=== PATIENT | male | born 1995 | race Caucasian/White ===

== ENCOUNTER 2017-07-20 07:56 | Emergency (ER) | payer MEDICAID ==
[2017-07-20] MEDS ORDERED: Ondansetron 4 MG/2 ML SDV IV ONE (08:25)
[2017-07-20] MEDS ORDERED: Sodium Chloride 0.9% 1,000 ML IV ONE (08:25)
[2017-07-20] MEDS ORDERED: diphenhydrAMINE 50 MG/ML SDV IVPUSH ONE (08:25)
[2017-07-20 08:45] LABS: CHLORIDE,CL 100 mmol/L (101-111); SODIUM,NA 136 mmol/L (135-145)
--- NOTE | 2017-07-20 08:52 | EDM.PDOC ---
ED HPI GENERAL MEDICAL PROBLEM - General Chief Complaint: Gastrointestinal Problem Stated Complaint: THROUGHING UP ALOT Time Seen by Provider: 07/20/17 08:25 Source of Information: Reports: Patient History Limitations: Reports: No Limitations - History of Present Illness INITIAL COMMENTS - FREE TEXT/NARRATIVE: patient comes emergency Department today with complaints of nausea and vomiting as well as back pain. Patient is a type I diabetic on insulin. At approximately 0200 hrs. this morning he woke up and has continued to have nausea and recurrent episodes of vomiting. He has been unable to keep anything down. He does complain of pain in his mid back bilaterally in his flanks as well. He denies any recent injury or trauma to his back. He denies any hematuria dysuria or urinary frequency. He does complain of abdominal pain only when he is vomiting. He denies any diarrhea. Does complain of a subjective fever and chills. He has not taken any antipyretics prior to arrival. His blood sugars have been within the normal ranges he reports in the 150s to 200s. Bilateral Flank Pain Score (Numeric/FACES): 8 - Related Data Allergies Allergy/AdvReac Type Severity Reaction Status Date / Time No Known Allergies Allergy Verified 02/29/16 07:17 Home Meds: Home Meds Insulin Aspart [Novolog] 8 units SUBCUT ASDIRECTED 10/18/13 [History] Insulin Glarg,Human.Rec.Analog [Lantus Solostar] 33 unit SUBCUT DAILY 10/18/13 [ History] lamoTRIgine [Lamotrigine] 1 tab PO BEDTIME 07/20/17 [History] Past Medical History HEENT History: Reports: Impaired Vision, Other (See Below) Other HEENT History: wears glasses Cardiovascular History: Reports: None Respiratory History: Reports: None Gastrointestinal History: Reports: None Genitourinary History: Reports: Acute Renal Failure Musculoskeletal History: Reports: None Neurological History: Reports: Seizure Psychiatric History: Reports: None Endocrine/Metabolic History: Reports: Diabetes, Type I Other Endocrine/Metabolic History: on insulin at home Hematologic History: Reports: None Immunologic History: Reports: None Oncologic (Cancer) History: Reports: None Dermatologic History: Reports: None - Infectious Disease History Infectious Disease History: Reports: None - Past Surgical History Head Surgeries/Procedures: Reports: None Social & Family History - Family History Family Medical History: Noncontributory Endocrine/Metabolic: Reports: IDDM - Tobacco Use Smoking Status *Q: Never Smoker Second Hand Smoke Exposure: No - Caffeine Use Caffeine Use: Reports: Soda - Alcohol Use Days Per Week of Alcohol Use: 0 - Recreational Drug Use Recreational Drug Use: No Drug Use in Last 12 Months: No - Living Situation & Occupation Living situation: Reports: with Family Occupation: Student ED ROS GENERAL - Review of Systems Review Of Systems: ROS reveals no pertinent complaints other than HPI. ED EXAM, GI/ABD - Physical Exam Exam: See Below Text/Narrative:: appears pale an ill-appearing and hygienically quite poor taking care of. Exam Limited By: No Limitations General Appearance: Alert, WD/WN Ears: Normal External Exam, Normal Canal Nose: Normal Inspection, Normal Mucosa Throat/Mouth: Normal Inspection, Other (dry mucous membranes.). No: Normal Lips (lips are cracked) Head: Atraumatic, Normocephalic Neck: Normal Inspection, Supple, Non-Tender Respiratory/Chest: No Respiratory Distress, Lungs Clear, Normal Breath Sounds, No Accessory Muscle Use Cardiovascular: Normal Peripheral Pulses, Regular Rate, Rhythm, No Gallop, No JVD, No Murmur GI/Abdominal Exam: Normal Bowel Sounds, Soft, Non-Tender, No Distention (Male) Exam: Deferred Rectal (Males) Exam: Deferred Back Exam: Normal Inspection. No: CVA Tenderness (L), CVA Tenderness (R) Extremities: Normal Inspection, Normal Range of Motion, Non-Tender, Pallor Neurological: Alert, Oriented, CN II-XII Intact Psychiatric: Normal Affect, Normal Mood Skin Exam: No Rash, Cool, Diaphoretic, Pallor Lymphatic: No Adenopathy Course - Vital Signs Last Recorded V/S: Last Vital Signs Temp 38.1 C 07/20/17 12:57 Pulse 117 H 07/20/17 11:11 Resp 22 H 07/20/17 08:03 BP 106/50 L 07/20/17 11:11 Pulse Ox 98 07/20/17 11:11 Vital Signs 07/20/17 07/20/17 07/20/17 08:03 11:11 11:30 Temperature 38.4 C H Temperature [ 37.4 C 38.4 C H Tympanic] Pulse, 108 H 117 H Peripheral [ Pulse Oximetry] Respiratory 22 H Rate Blood Pressure 117/78 106/50 L [Left Upper Arm ] O2 Sat by Pulse 100 98 Oximetry 07/20/17 12:57 Temperature Temperature [ 38.1 C Tympanic] Pulse, Peripheral [ Pulse Oximetry] Respiratory Rate Blood Pressure [Left Upper Arm ] O2 Sat by Pulse Oximetry - Orders/Labs/Meds Orders: Active Orders 24 hr Category Date Time Status BLOOD GAS VENOUS [BG] Stat Lab 07/20/17 08:24 Ordered CULTURE BLOOD [BC] Stat Lab 07/20/17 08:42 Received CULTURE BLOOD [BC] Stat Lab 07/20/17 09:02 Received Blood Culture x2 Reflex Set [OM.PC] Stat Oth 07/20/17 08:40 Ordered Labs: Laboratory Tests 07/20/17 07/20/17 07/20/17 Range/Units 08:18 08:18 08:18 WBC 19.2 H (5.0-10.0) 10^3/uL RBC 5.78 (4.6-6.2) 10^6/uL Hgb 17.2 D (14.0-18.0) g/dL Hct 49.0 (40.0-54.0) % MCV 84.8 D (80-100) fL MCH 29.8 (27.0-34.0) pg MCHC 35.1 H (33.0-35.0) g/dL Plt Count 220 (150-450) 10^3/uL Neut % (Auto) 91.8 H (42.2-75.2) % Lymph % (Auto) 2.4 L (20.5-50.1) % Tompkins % (Auto) 5.5 (2-8) % Eos % (Auto) 0.1 L (1.0-3.0) % Baso % (Auto) 0.2 (0.0-1.0) % Sodium 136 (135-145) mmol/L Potassium 3.8 (3.6-5.0) mmol/L Chloride 100 L (101-111) mmol/L Carbon Dioxide 22.0 (21.0-31.0) mmol/L Anion Gap 17.8 BUN 19 H (7-18) mg/dL Creatinine 0.9 (0.6-1.3) mg/dL Est Cr Clr Drug Dosing 116.62 mL/min Estimated GFR (MDRD) > 60 BUN/Creatinine Ratio 21.11 Glucose 204 H (74-105) mg/dL Lactic Acid (0.5-2.2) mmol/L Calcium 9.0 (8.4-10.2) mg/dl Total Bilirubin 1.3 H (0.2-1.0) mg/dL AST 37 (10-42) IU/L ALT 31 (10-60) IU/L Alkaline Phosphatase 103 (42-121) IU/L C-Reactive Protein < 0.5 (0.0-1.3) mg/dL Total Protein 7.4 (6.7-8.2) g/dl Albumin 4.3 (3.2-5.5) g/dl Globulin 3.1 Albumin/Globulin Ratio 1.39 Lipase (22-51) U/L Urine Color (YELLOW) Urine Appearance (CLEAR) Urine pH (5.0-9.0) Ur Specific Russell (1.005-1.030) Urine Protein (NEGATIVE) Urine Glucose (UA) (NEGATIVE) Urine Ketones (NEGATIVE) Urine Occult Blood (NEGATIVE) Urine Nitrite (NEGATIVE) Urine Bilirubin (NEGATIVE) Urine Urobilinogen (0.2-1.0) mg/dL Ur Leukocyte Esterase (NEGATIVE) Urine RBC /HPF Urine WBC (0-5/HPF) /HPF Ur Epithelial Cells /HPF Amorphous Sediment (0/HPF) /HPF Urine Mucus /LPF Ketones 07/20/17 07/20/17 07/20/17 Range/Units 08:18 08:18 08:42 WBC (5.0-10.0) 10^3/uL RBC (4.6-6.2) 10^6/uL Hgb (14.0-18.0) g/dL Hct (40.0-54.0) % MCV (80-100) fL MCH (27.0-34.0) pg MCHC (33.0-35.0) g/dL Plt Count (150-450) 10^3/uL Neut % (Auto) (42.2-75.2) % Lymph % (Auto) (20.5-50.1) % Tompkins % (Auto) (2-8) % Eos % (Auto) (1.0-3.0) % Baso % (Auto) (0.0-1.0) % Sodium (135-145) mmol/L Potassium (3.6-5.0) mmol/L Chloride (101-111) mmol/L Carbon Dioxide (21.0-31.0) mmol/L Anion Gap BUN (7-18) mg/dL Creatinine (0.6-1.3) mg/dL Est Cr Clr Drug Dosing mL/min Estimated GFR (MDRD) BUN/Creatinine Ratio Glucose (74-105) mg/dL Lactic Acid 1.6 (0.5-2.2) mmol/L Calcium (8.4-10.2) mg/dl Total Bilirubin (0.2-1.0) mg/dL AST (10-42) IU/L ALT (10-60) IU/L Alkaline Phosphatase (42-121) IU/L C-Reactive Protein (0.0-1.3) mg/dL Total Protein (6.7-8.2) g/dl Albumin (3.2-5.5) g/dl Globulin Albumin/Globulin Ratio Lipase < 10 L (22-51) U/L Urine Color (YELLOW) Urine Appearance (CLEAR) Urine pH (5.0-9.0) Ur Specific Russell (1.005-1.030) Urine Protein (NEGATIVE) Urine Glucose (UA) (NEGATIVE) Urine Ketones (NEGATIVE) Urine Occult Blood (NEGATIVE) Urine Nitrite (NEGATIVE) Urine Bilirubin (NEGATIVE) Urine Urobilinogen (0.2-1.0) mg/dL Ur Leukocyte Esterase (NEGATIVE) Urine RBC /HPF Urine WBC (0-5/HPF) /HPF Ur Epithelial Cells /HPF Amorphous Sediment (0/HPF) /HPF Urine Mucus /LPF Ketones Positive 07/20/17 Range/Units 09:34 WBC (5.0-10.0) 10^3/uL RBC (4.6-6.2) 10^6/uL Hgb (14.0-18.0) g/dL Hct (40.0-54.0) % MCV (80-100) fL MCH (27.0-34.0) pg MCHC (33.0-35.0) g/dL Plt Count (150-450) 10^3/uL Neut % (Auto) (42.2-75.2) % Lymph % (Auto) (20.5-50.1) % Tompkins % (Auto) (2-8) % Eos % (Auto) (1.0-3.0) % Baso % (Auto) (0.0-1.0) % Sodium (135-145) mmol/L Potassium (3.6-5.0) mmol/L Chloride (101-111) mmol/L Carbon Dioxide (21.0-31.0) mmol/L Anion Gap BUN (7-18) mg/dL Creatinine (0.6-1.3) mg/dL Est Cr Clr Drug Dosing mL/min Estimated GFR (MDRD) BUN/Creatinine Ratio Glucose (74-105) mg/dL Lactic Acid (0.5-2.2) mmol/L Calcium (8.4-10.2) mg/dl Total Bilirubin (0.2-1.0) mg/dL AST (10-42) IU/L ALT (10-60) IU/L Alkaline Phosphatase (42-121) IU/L C-Reactive Protein (0.0-1.3) mg/dL Total Protein (6.7-8.2) g/dl Albumin (3.2-5.5) g/dl Globulin Albumin/Globulin Ratio Lipase (22-51) U/L Urine Color Dark yellow (YELLOW) Urine Appearance Slightly cloudy (CLEAR) Urine pH 5.5 (5.0-9.0) Ur Specific Russell 1.020 (1.005-1.030) Urine Protein 30 H (NEGATIVE) Urine Glucose (UA) 500 H (NEGATIVE) Urine Ketones 80 H (NEGATIVE) Urine Occult Blood Negative (NEGATIVE) Urine Nitrite Negative (NEGATIVE) Urine Bilirubin Small H (NEGATIVE) Urine Urobilinogen 0.2 (0.2-1.0) mg/dL Ur Leukocyte Esterase Negative (NEGATIVE) Urine RBC 0-5 /HPF Urine WBC 0-5 (0-5/HPF) /HPF Ur Epithelial Cells Rare /HPF Amorphous Sediment Rare (0/HPF) /HPF Urine Mucus Moderate H /LPF Ketones Meds: Medications Discontinued Medications Generic Name Dose Route Start Last Admin Trade Name Freq PRN Reason Stop Dose Admin Acetaminophen 1,000 mg 07/20/17 11:12 07/20/17 11:30 Tylenol Extra Strength PO 07/20/17 11:13 1,000 mg ONETIME ONE Administration Diphenhydramine HCl 25 mg 07/20/17 08:25 07/20/17 08:36 Benadryl IVPUSH 07/20/17 08:26 25 mg ONETIME ONE Administration Sodium Chloride 1,000 mls @ 999 mls/hr 07/20/17 08:25 07/20/17 08:31 Normal Saline IV 07/20/17 09:25 999 mls/hr .BOLUS ONE Administration Sodium Chloride 1,000 mls @ 500 mls/hr 07/20/17 09:45 07/20/17 09:33 Normal Saline IV 500 mls/hr ASDIRECTED BUZZ Administration Iopamidol 75 ml 07/20/17 10:46 07/20/17 11:35 Isovue-300 (61%) IVPUSH 07/20/17 10:47 75 ml ONETIME ONE Administration Ondansetron HCl 4 mg 07/20/17 08:25 07/20/17 08:33 Zofran IV 07/20/17 08:26 4 mg ONETIME ONE Administration - Radiology Interpretation Free Text/Narrative:: CT abdomen and pelvis per radiology. No acute inflammation or intestinal obstruction. Clumping of small bowel in the right lower abdomen nodularity of the mesentery and remaining small bowel findings along with the colonic fluid. Questionable inflammatory bowel disease. - Re-Assessments/Exams Free Text/Narrative Re-Assessment/Exam: 07/20/17 08:52 IV normal saline 1 L wide open. 25 mg diphenhydramine IV push. Zofran 4 mg IV push. 07/20/17 Following the above therapy the patient felt much better. His nausea is resolved. He has no abdominal pain. His skin is pink warm and dry. He is able to tolerate by mouth fluids. Will treat him for gastroenteritis at this time. Departure - Departure Time of Disposition: 13:32 Disposition: Home, Self-Care 01 Clinical Impression: Gastroenteritis Diabetes mellitus type 1 Qualifiers: Diabetes mellitus complication status: without complication Qualified Code(s): E10.9 - Type 1 diabetes mellitus without complications - Discharge Information Instructions: Viral Gastroenteritis, Adult, [id number], Nausea and Vomiting, Adult, [id number] Referrals: PCP,Unobtain [Primary Care Provider] - Forms: ED Department Discharge Additional Instructions: Tylenol and or Ibuprofen as needed for pain. Watch blood sugars closely over the next few days. Push oral fluids especially Gatorade and or Powerade. Zofran 1 tablet every 6 hrs as needed for nausea. RX given to the patient. Return to the ED if new or worsening symptoms. Follow up with primary care provider in the next 4-6 days if not improving sooner if worse. - My Orders Last 24 Hours: My Active Orders 07/20/17 08:24 BLOOD GAS VENOUS [BG] Stat 07/20/17 08:40 Blood Culture x2 Reflex Set [OM.PC] Stat 07/20/17 08:42 CULTURE BLOOD [BC] Stat 07/20/17 09:02 CULTURE BLOOD [BC] Stat - Assessment/Plan Last 24 Hours: My Active Orders 07/20/17 08:24 BLOOD GAS VENOUS [BG] Stat 07/20/17 08:40 Blood Culture x2 Reflex Set [OM.PC] Stat 07/20/17 08:42 CULTURE BLOOD [BC] Stat 07/20/17 09:02 CULTURE BLOOD [BC] Stat Assessment:: Gastroenteritis Plan: Tylenol and or Ibuprofen as needed for pain. Watch blood sugars closely over the next few days. Push oral fluids especially Gatorade and or Powerade. Zofran 1 tablet every 6 hrs as needed for nausea. RX given to the patient. Return to the ED if new or worsening symptoms. Follow up with primary care provider in the next 4-6 days if not improving sooner if worse.
[2017-07-20] MEDS ORDERED: Sodium Chloride 0.9% 1,000 ML IV SCH (09:45)
[2017-07-20] MEDS ORDERED: Iopamidol 612 MG/ML 75 ML Bottle IVPUSH ONE (10:46)
[2017-07-20 11:12] VITALS: BP 106/50
[2017-07-20] MEDS ORDERED: Acetaminophen 500 MG Tab PO ONE (11:12)
[2017-07-22 09:23] LABS: O2 DELIVERY DEVICE ROOM AIR; O2 SATURATION VENOUS 83.3 % (60-80); PCO2 VENOUS 31 mmHg (41-51); PH,VENOUS 7.47 (7.31-7.41); PO2 VENOUS 46 mmHg (35-42)
[2017-07-22 09:24] LABS: BASE EXCESS VENOUS 0.2 mmol/l ((-2)-(+3)); BICARBONATE,VENOUS 22 mmol/l (19-25)
== END 2017-07-20 13:44 | disposition home or self-care (01) ==
LOC: DL.ED 07:56
DX: K52.9 Noninfective gastroenteritis and colitis, unspecified (principal); E10.9 Type 1 diabetes mellitus without complications; Z79.4 Long term (current) use of insulin
CPT/HCPCS: 36415; 74177; 80053; 81001; 82009; 83605; 83690; 85025; 86140; 87040; 96361; 96374; 96375; 99284; A9270; J1200; J2405; J7030; Q9967; 82803

== ENCOUNTER 2017-11-30 16:53 | Observation (INO) | payer SELFPAY ==
[2017-11-30] MEDS ORDERED: Sodium Chloride 0.9% 10 ML Syringe FLUSH PRN ×2 (17:07→17:09)
[2017-11-30] MEDS ORDERED: Ondansetron 4 MG/2 ML SDV IV ONE (17:10)
[2017-11-30] MEDS ORDERED: Sodium Chloride 0.9% 1,000 ML IV ONE ×2 (17:10→18:26)
--- NOTE | 2017-11-30 17:12 | EDM.PDOC ---
ED HPI GENERAL MEDICAL PROBLEM - General Chief Complaint: Diabetic Complaint Stated Complaint: [id number] SEIZURE AND THROWING UP Time Seen by Provider: 11/30/17 17:07 Source of Information: Reports: Patient, Family (mother/brother), Old Records, RN, RN Notes Reviewed History Limitations: Reports: No Limitations - History of Present Illness INITIAL COMMENTS - FREE TEXT/NARRATIVE: Pt presented from home by his mother and brother with report that pt seem well and normal all day, then just prior to arrival while playing an online video game had a witnessed seizure, followed by vomiting. The seizure lasted less than 1 minute per mother, and consisted of generalized shaking, jerking, twitching, and rigid posturing, and was followed by a postictal phase of approx. 20 minutes. Pt states his mouth is dry, he thinks he bit his tongue, and he denies pain. Pt is unable to provide any further history. Onset: Today Duration: Constant Location: Reports: Generalized Severity: Severe Improves with: Reports: None Worsens with: Reports: None Associated Symptoms: Reports: No Other Symptoms - Related Data Allergies Allergy/AdvReac Type Severity Reaction Status Date / Time No Known Allergies Allergy Verified 02/29/16 07:17 Home Meds: Home Meds Insulin Aspart [Novolog] 8 units SUBCUT ASDIRECTED 10/18/13 [History] Insulin Glarg,Human.Rec.Analog [Lantus Solostar] 33 unit SUBCUT DAILY 10/18/13 [ History] lamoTRIgine [Lamotrigine] 1 tab PO BEDTIME 07/20/17 [History] Past Medical History HEENT History: Reports: Impaired Vision, Other (See Below) Other HEENT History: wears glasses Cardiovascular History: Reports: None Respiratory History: Reports: None Gastrointestinal History: Reports: None Genitourinary History: Reports: Acute Renal Failure Musculoskeletal History: Reports: None Neurological History: Reports: Seizure Psychiatric History: Reports: None Endocrine/Metabolic History: Reports: Diabetes, Type I, Other (See Below) (DKA) Other Endocrine/Metabolic History: on insulin at home Hematologic History: Reports: None Immunologic History: Reports: None Oncologic (Cancer) History: Reports: None Dermatologic History: Reports: None - Infectious Disease History Infectious Disease History: Reports: None - Past Surgical History Head Surgeries/Procedures: Reports: None Social & Family History - Family History Family Medical History: Noncontributory Endocrine/Metabolic: Reports: IDDM - Caffeine Use Caffeine Use: Reports: Soda - Living Situation & Occupation Living situation: Reports: Single, with Family Occupation: Student ED ROS GENERAL - Review of Systems Review Of Systems: ROS reveals no pertinent complaints other than HPI. (per mother) ED EXAM GENERAL NO PERIP PULSE - Physical Exam Exam: See Below Exam Limited By: No Limitations General Appearance: Alert, Lethargic, Thin, Other (acutely ill appearing) Eye Exam: Bilateral Eye: EOMI, Normal Inspection, PERRL Ears: Normal External Exam, Hearing Grossly Normal Nose: Normal Inspection, Normal Mucosa, No Blood Throat/Mouth: Normal Lips, Normal Oropharynx, Normal Voice, No Airway Compromise , Other (very dry oral membranes, small bite injury to tongue x2) Head: Atraumatic, Normocephalic Neck: Normal Inspection, Supple, Non-Tender, Full Range of Motion. No: Lymphadenopathy (L), Lymphadenopathy (R) Respiratory/Chest: No Respiratory Distress, Lungs Clear, Normal Breath Sounds, No Accessory Muscle Use, Chest Non-Tender, Other (hyperventilating) Cardiovascular: Regular Rate, Rhythm, No Edema, No Gallop, No JVD, No Murmur, Tachycardia GI/Abdominal: Normal Bowel Sounds, Soft, Non-Tender, No Organomegaly, No Distention, No Abnormal Bruit, No Mass (Male) Exam: Deferred Rectal (Males) Exam: Deferred Back Exam: Normal Inspection Extremities: Normal Inspection, Normal Range of Motion, Non-Tender, Normal Capillary Refill, No Pedal Edema Neurological: Alert, Other (drowsy, postictal on arrival, later with no acute neuro. deficits) Skin Exam: Dry, Intact, Cool, Pallor EKG INTERPRETATION EKG Date: 11/30/17 Time: 17:24 Rhythm: Other (Sinus Tach) Rate (Beats/Min): 101 [place]: Normal P-Wave: Present QRS: Normal ST-T: Normal QT: Normal Comparison: No Change Course - Vital Signs Last Recorded V/S: Last Vital Signs Temp 36.8 C 11/30/17 17:06 Pulse 130 H 11/30/17 17:06 Resp 50 H 11/30/17 17:06 BP 136/82 11/30/17 17:06 Pulse Ox 90 L 11/30/17 17:06 - Orders/Labs/Meds Orders: Active Orders 24 hr Category Date Time Status Blood Glucose Check, Bedside [RC] ONETIME Care 11/30/17 17:07 Active EKG 12 Lead [EKG Documentation Completion] [RC] STAT Care 11/30/17 17:08 Active Peripheral IV Care [RC] . DIRECTED Care 11/30/17 17:08 Active Peripheral IV Care [RC] . DIRECTED Care 11/30/17 17:09 Active Chest 1V Frontal [CR] Stat Exams 11/30/17 17:08 Taken CULTURE BLOOD [BC] Stat Lab 11/30/17 17:22 Received CULTURE BLOOD [BC] Stat Lab 11/30/17 17:26 Received DRUG SCREEN URINE BIORAD [URCHEM] Stat Lab 11/30/17 17:08 Ordered LAMOTRIGINE, SERUM [REF] Routine Lab 11/30/17 17:22 Received UA W/MICROSCOPIC [URIN] Stat Lab 11/30/17 17:24 Ordered Sodium Chloride 0.9% [Saline Flush] Med 11/30/17 17:07 Active 10 ml FLUSH ASDIRECTED PRN Sodium Chloride 0.9% [Saline Flush] Med 11/30/17 17:09 Active 10 ml FLUSH ASDIRECTED PRN Blood Culture x2 Reflex Set [OM.PC] Stat Oth 11/30/17 17:09 Ordered Peripheral IV Insertion Adult [OM.PC] Stat Oth 11/30/17 17:07 Ordered Peripheral IV Insertion Adult [OM.PC] Stat Oth 11/30/17 17:08 Ordered Seizure Precautions [OM.PC] Routine Oth 11/30/17 17:11 Ordered Medication Orders Sodium Chloride (Saline Flush) 10 ml FLUSH ASDIRECTED PRN PRN Reason: Keep Vein Open Last Admin: 11/30/17 17:19 Dose: 10 ml Sodium Chloride (Saline Flush) 10 ml FLUSH ASDIRECTED PRN PRN Reason: Keep Vein Open Last Admin: 11/30/17 17:26 Dose: 10 ml Labs: Laboratory Tests 11/30/17 11/30/17 11/30/17 Range/Units 17:04 17:15 17:22 WBC (5.0-10.0) 10^3/uL RBC (4.6-6.2) 10^6/uL Hgb (14.0-18.0) g/dL Hct (40.0-54.0) % MCV (80-100) fL MCH (27.0-34.0) pg MCHC (33.0-35.0) g/dL Plt Count (150-450) 10^3/uL Neut % (Auto) (42.2-75.2) % Lymph % (Auto) (20.5-50.1) % [place] % (Auto) (2-8) % Eos % (Auto) (1.0-3.0) % Baso % (Auto) (0.0-1.0) % ABG pH 7.29 L (7.35-7.45) ABG pCO2 23 L (35-45) mmHg ABG pO2 124 H (70-100) mmHg ABG HCO3 10.4 L (22-26) mmol/L ABG O2 Saturation 98 (95-100) % ABG Base Excess -14 L ((-2)-(+3)) mmol/L O2 Delivery Device Room air Sodium 137 (135-145) mmol/L Potassium 3.7 (3.6-5.0) mmol/L Chloride 102 (101-111) mmol/L Carbon Dioxide 11.0 L D (21.0-31.0) mmol/L Anion Gap 27.7 BUN 13 (7-18) mg/dL Creatinine 1.1 (0.6-1.3) mg/dL Est Cr Clr Drug Dosing 88.60 mL/min Estimated GFR (MDRD) > 60 BUN/Creatinine Ratio 11.81 Glucose 146 H (74-105) mg/dL POC Glucose 136 H (70-105) mg/dl Lactic Acid (0.5-2.2) mmol/L Calcium 9.9 (8.4-10.2) mg/dl Phosphorus 3.6 (2.5-4.6) mg/dL Magnesium 2.9 H (1.8-2.5) mg/dL Total Bilirubin 0.8 (0.2-1.0) mg/dL AST 51 H (10-42) IU/L ALT 35 (10-60) IU/L Alkaline Phosphatase 126 H (42-121) IU/L Troponin I < 0.02 (0.00-0.02) ng/ml Total Protein 8.2 (6.7-8.2) g/dl Albumin 4.8 (3.2-5.5) g/dl Globulin 3.4 Albumin/Globulin Ratio 1.41 Amylase 55 (28-100) U/L Lipase 16 L (22-51) U/L Ethyl Alcohol < 5 mg/dL Ketones Negative 11/30/17 11/30/17 Range/Units 17:22 17:22 WBC 10.9 H (5.0-10.0) 10^3/uL RBC 6.00 (4.6-6.2) 10^6/uL Hgb 17.8 (14.0-18.0) g/dL Hct 52.0 (40.0-54.0) % MCV 86.7 (80-100) fL MCH 29.7 (27.0-34.0) pg MCHC 34.2 (33.0-35.0) g/dL Plt Count 338 D (150-450) 10^3/uL Neut % (Auto) 56.4 (42.2-75.2) % Lymph % (Auto) 34.1 (20.5-50.1) % [place] % (Auto) 8.1 H (2-8) % Eos % (Auto) 1.0 (1.0-3.0) % Baso % (Auto) 0.4 (0.0-1.0) % ABG pH (7.35-7.45) ABG pCO2 (35-45) mmHg ABG pO2 (70-100) mmHg ABG HCO3 (22-26) mmol/L ABG O2 Saturation (95-100) % ABG Base Excess ((-2)-(+3)) mmol/L O2 Delivery Device Sodium (135-145) mmol/L Potassium (3.6-5.0) mmol/L Chloride (101-111) mmol/L Carbon Dioxide (21.0-31.0) mmol/L Anion Gap BUN (7-18) mg/dL Creatinine (0.6-1.3) mg/dL Est Cr Clr Drug Dosing mL/min Estimated GFR (MDRD) BUN/Creatinine Ratio Glucose (74-105) mg/dL POC Glucose (70-105) mg/dl Lactic Acid 11.3 H (0.5-2.2) mmol/L Calcium (8.4-10.2) mg/dl Phosphorus (2.5-4.6) mg/dL Magnesium (1.8-2.5) mg/dL Total Bilirubin (0.2-1.0) mg/dL AST (10-42) IU/L ALT (10-60) IU/L Alkaline Phosphatase (42-121) IU/L Troponin I (0.00-0.02) ng/ml Total Protein (6.7-8.2) g/dl Albumin (3.2-5.5) g/dl Globulin Albumin/Globulin Ratio Amylase (28-100) U/L Lipase (22-51) U/L Ethyl Alcohol mg/dL Ketones Meds: Medications Generic Name Dose Route Start Last Admin Trade Name Freq PRN Reason Stop Dose Admin Sodium Chloride 10 ml 11/30/17 17:07 11/30/17 17:19 Saline Flush FLUSH 10 ml ASDIRECTED PRN Administration Keep Vein Open Sodium Chloride 10 ml 11/30/17 17:09 11/30/17 17:26 Saline Flush FLUSH 10 ml ASDIRECTED PRN Administration Keep Vein Open Discontinued Medications Generic Name Dose Route Start Last Admin Trade Name Freq PRN Reason Stop Dose Admin Sodium Chloride 1,000 mls @ 999 mls/hr 11/30/17 17:10 11/30/17 17:23 Normal Saline IV 11/30/17 18:10 999 mls/hr .BOLUS ONE Administration Ondansetron HCl 4 mg 11/30/17 17:10 11/30/17 17:23 Zofran IV 11/30/17 17:11 4 mg ONETIME ONE Administration - Radiology Interpretation Free Text/Narrative:: [facility] Final Radiology Report Call: [phone] assistance Online chat: [email or web address] Name: TRACY RAHMAN Age: 22Years M Date: 11/30/2017 SSN: -- : [id number] Study: XR CHEST 1 VIEW Requesting Physician: LISBET DIGGS Images: 1 Addl Studies: Provided Clinical History: Contrast: Contrast Medium: Contrast Amount: Contrast Method: CONFIDENTIALITY STATEMENT This report is intended only for use by the referring physician, and only in accordance with law. If you received this in error, call [phone]. Page 1 of 1 EXAM: XR Chest, 1 View CLINICAL HISTORY: 22 years old, male; Signs and symptoms; Fever and other: Vomiting, dka seizure ? aspiration TECHNIQUE: Frontal view of the chest. COMPARISON: CR - Chest 2V 2016-02-29 07:40 FINDINGS: Lungs: Unremarkable. No consolidation. Pleural space: Unremarkable. No pneumothorax. Heart: Unremarkable. No cardiomegaly. Mediastinum: Unremarkable. Bones/joints: Unremarkable. IMPRESSION: No acute cardiopulmonary process. There is no significant interval change. Thank you for allowing us to participate in the care of your patient. Dictated and Authenticated by: Crow Peter MD 11/30/2017 5:45 PM Central Time Departure - Departure Time of Disposition: 18:21 (admit to Dr. Ricks) Disposition: Refer to Observation Condition: Serious Clinical Impression: Seizure, Acidosis due to type 1 diabetes mellitus, Lactic acidosis, Dehydration Vomiting Qualifiers: Vomiting type: unspecified Vomiting Intractability: non-intractable Nausea presence: unspecified Qualified Code(s): R11.10 - Vomiting, unspecified - Discharge Information Forms: ED Department Discharge - My Orders Last 24 Hours: My Active Orders 11/30/17 17:07 Blood Glucose Check, Bedside [RC] ONETIME Sodium Chloride 0.9% [Saline Flush] 10 ml FLUSH ASDIRECTED PRN Peripheral IV Insertion Adult [OM.PC] Stat 11/30/17 17:08 EKG 12 Lead [EKG Documentation Completion] [RC] STAT Peripheral IV Care [RC] . DIRECTED Chest 1V Frontal [CR] Stat DRUG SCREEN URINE BIORAD [URCHEM] Stat Peripheral IV Insertion Adult [OM.PC] Stat 11/30/17 17:09 Peripheral IV Care [RC] . DIRECTED Sodium Chloride 0.9% [Saline Flush] 10 ml FLUSH ASDIRECTED PRN Blood Culture x2 Reflex Set [OM.PC] Stat 11/30/17 17:11 Seizure Precautions [OM.PC] Routine 11/30/17 17:22 CULTURE BLOOD [BC] Stat LAMOTRIGINE, SERUM [REF] Routine 11/30/17 17:24 UA W/MICROSCOPIC [URIN] Stat 11/30/17 17:26 CULTURE BLOOD [BC] Stat - Assessment/Plan Last 24 Hours: My Active Orders 11/30/17 17:07 Blood Glucose Check, Bedside [RC] ONETIME Sodium Chloride 0.9% [Saline Flush] 10 ml FLUSH ASDIRECTED PRN Peripheral IV Insertion Adult [OM.PC] Stat 11/30/17 17:08 EKG 12 Lead [EKG Documentation Completion] [RC] STAT Peripheral IV Care [RC] . DIRECTED Chest 1V Frontal [CR] Stat DRUG SCREEN URINE BIORAD [URCHEM] Stat Peripheral IV Insertion Adult [OM.PC] Stat 11/30/17 17:09 Peripheral IV Care [RC] . DIRECTED Sodium Chloride 0.9% [Saline Flush] 10 ml FLUSH ASDIRECTED PRN Blood Culture x2 Reflex Set [OM.PC] Stat 11/30/17 17:11 Seizure Precautions [OM.] Routine 11/30/17 17:22 CULTURE BLOOD [BC] Stat LAMOTRIGINE, SERUM [REF] Routine 11/30/17 17:24 UA W/MICROSCOPIC [URIN] Stat 11/30/17 17:26 CULTURE BLOOD [BC] Stat
[2017-11-30 17:21] LABS: BASE EXCESS ARTERIAL -14 mmol/L ((-2)-(+3)); BICARBONATE,ARTERIAL 10.4 mmol/L (22-26); O2 DELIVERY DEVICE ROOM AIR; O2 SATURATION ARTERIAL 98 % (95-100); PCO2 ARTERIAL 23 mmHg (35-45); PO2 ARTERIAL 124 mmHg (70-100)
[2017-11-30 17:54] LABS: ANION GAP 27.7; CHLORIDE,CL 102 mmol/L (101-111); SODIUM,NA 137 mmol/L (135-145)
[2017-11-30] MEDS ORDERED: Acetaminophen 325 MG Tab PO PRN (18:55)
[2017-11-30] MEDS ORDERED: Ondansetron 4 MG/2 ML SDV IVPUSH PRN (18:55)
--- NOTE | 2017-11-30 19:24 | PCM.HP ---
H&P History of Present Illness - General Date of Service: 11/30/17 Admit Problem/Dx: Admission Diagnosis/Problem Admission Diagnosis/Problem Seizure disorder Source of Information: Patient, Family History Limitations: Reports: No Limitations - History of Present Illness Initial Comments - Free Text/Narative: 22-year-old male with a past medical history of type 1 diabetes, seizure disorder who presents after experiencing a generalized tonic-clonic seizure today. Patient reports that the seizure episode started suddenly while he was playing a new video game, was witnessed by his mother. The patient had generalized tonic -clonic contractions, tongue biting, loss of consciousness, unresponsiveness, post ictal phase. There was no urinary or fecal incontinence. Reported nausea and vomiting after regaining consciousness after the seizure. The patient has had seizure disorder for about 3 years, he was started on lamotrigine, and he follows up with neurology [Dr. Velásquez]. He reports that he has been recently noncompliant with taking his seizure medication. Last seizure was about 6 months to a year ago. Currently at bedside, the patient has no chest pain, no shortness of breath, no abdominal pain, no headaches, no fever, no urinary symptoms. In the ED, he was found to be dehydrated, with a lactic acidosis. An observation admission was recommended. Onset of Symptoms: Reports: Today - Related Data Allergies/Adverse Reactions: Allergies Allergy/AdvReac Type Severity Reaction Status Date / Time No Known Allergies Allergy Verified 02/29/16 07:17 Home Medications: Home Meds Insulin Aspart [Novolog] 8 units SUBCUT ASDIRECTED 10/18/13 [History] Insulin Glarg,Human.Rec.Analog [Lantus Solostar] 33 unit SUBCUT BEDTIME [History] lamoTRIgine [Lamotrigine] 1 tab PO BEDTIME 07/20/17 [History] Past Medical History HEENT History: Reports: Impaired Vision, Other (See Below) Other HEENT History: wears glasses Cardiovascular History: Reports: None Respiratory History: Reports: None Gastrointestinal History: Reports: None Genitourinary History: Reports: Acute Renal Failure Musculoskeletal History: Reports: None Neurological History: Reports: Seizure Psychiatric History: Reports: None Endocrine/Metabolic History: Reports: Diabetes, Type I, Other (See Below) (DKA) Other Endocrine/Metabolic History: on insulin at home Hematologic History: Reports: None Immunologic History: Reports: None Oncologic (Cancer) History: Reports: None Dermatologic History: Reports: None - Infectious Disease History Infectious Disease History: Reports: None - Past Surgical History Head Surgeries/Procedures: Reports: None Social & Family History - Family History Family Medical History: Noncontributory Endocrine/Metabolic: Reports: IDDM - Tobacco Use Smoking Status *Q: Never Smoker - Caffeine Use Caffeine Use: Reports: Soda - Recreational Drug Use Recreational Drug Use: No - Living Situation & Occupation Living situation: Reports: Single, with Family Occupation: Student H&P Review of Systems - Review of Systems: Review Of Systems: See Below General: Reports: No Symptoms HEENT: Reports: No Symptoms Pulmonary: Reports: No Symptoms Cardiovascular: Reports: No Symptoms Gastrointestinal: Reports: Nausea, Vomiting Genitourinary: Reports: No Symptoms Musculoskeletal: Reports: No Symptoms Skin: Reports: No Symptoms Psychiatric: Reports: No Symptoms Neurological: Reports: Seizure Exam - Exam Exam: See Below - Vital Signs Vital Signs: Last Vital Signs Temp 36.8 C 11/30/17 17:06 Pulse 130 H 11/30/17 17:06 Resp 50 H 11/30/17 17:06 BP 136/82 11/30/17 17:06 Pulse Ox 90 L 11/30/17 17:06 Weight: 58.967 kg - Exam General: Alert, Oriented HEENT: Conjunctiva Clear Neck: Supple Lungs: Clear to Auscultation, Normal Respiratory Effort Cardiovascular: Regular Rate, Regular Rhythm GI/Abdominal Exam: Normal Bowel Sounds Neurological: Cranial Nerves Intact, Strength Equal Bilateral, Normal Tone, Sensation Intact - Patient Data Lab Results Last 24 hrs: Laboratory Results - last 24 hr 11/30/17 11/30/17 11/30/17 Range/Units 17:04 17:15 17:22 WBC (5.0-10.0) 10^3/uL RBC (4.6-6.2) 10^6/uL Hgb (14.0-18.0) g/dL Hct (40.0-54.0) % MCV (80-100) fL MCH (27.0-34.0) pg MCHC (33.0-35.0) g/dL Plt Count (150-450) 10^3/uL Neut % (Auto) (42.2-75.2) % Lymph % (Auto) (20.5-50.1) % [place] % (Auto) (2-8) % Eos % (Auto) (1.0-3.0) % Baso % (Auto) (0.0-1.0) % ABG pH 7.29 L (7.35-7.45) ABG pCO2 23 L (35-45) mmHg ABG pO2 124 H (70-100) mmHg ABG HCO3 10.4 L (22-26) mmol/L ABG O2 Saturation 98 (95-100) % ABG Base Excess -14 L ((-2)-(+3)) mmol/L O2 Delivery Device Room air Sodium 137 (135-145) mmol/L Potassium 3.7 (3.6-5.0) mmol/L Chloride 102 (101-111) mmol/L Carbon Dioxide 11.0 L D (21.0-31.0) mmol/L Anion Gap 27.7 BUN 13 (7-18) mg/dL Creatinine 1.1 (0.6-1.3) mg/dL Est Cr Clr Drug Dosing 88.60 mL/min Estimated GFR (MDRD) > 60 BUN/Creatinine Ratio 11.81 Glucose 146 H (74-105) mg/dL POC Glucose 136 H (70-105) mg/dl Lactic Acid (0.5-2.2) mmol/L Calcium 9.9 (8.4-10.2) mg/dl Phosphorus 3.6 (2.5-4.6) mg/dL Magnesium 2.9 H (1.8-2.5) mg/dL Total Bilirubin 0.8 (0.2-1.0) mg/dL AST 51 H (10-42) IU/L ALT 35 (10-60) IU/L Alkaline Phosphatase 126 H (42-121) IU/L Troponin I < 0.02 (0.00-0.02) ng/ml Total Protein 8.2 (6.7-8.2) g/dl Albumin 4.8 (3.2-5.5) g/dl Globulin 3.4 Albumin/Globulin Ratio 1.41 Amylase 55 (28-100) U/L Lipase 16 L (22-51) U/L Ethyl Alcohol < 5 mg/dL Ketones Negative 11/30/17 11/30/17 Range/Units 17:22 17:22 WBC 10.9 H (5.0-10.0) 10^3/uL RBC 6.00 (4.6-6.2) 10^6/uL Hgb 17.8 (14.0-18.0) g/dL Hct 52.0 (40.0-54.0) % MCV 86.7 (80-100) fL MCH 29.7 (27.0-34.0) pg MCHC 34.2 (33.0-35.0) g/dL Plt Count 338 D (150-450) 10^3/uL Neut % (Auto) 56.4 (42.2-75.2) % Lymph % (Auto) 34.1 (20.5-50.1) % [place] % (Auto) 8.1 H (2-8) % Eos % (Auto) 1.0 (1.0-3.0) % Baso % (Auto) 0.4 (0.0-1.0) % ABG pH (7.35-7.45) ABG pCO2 (35-45) mmHg ABG pO2 (70-100) mmHg ABG HCO3 (22-26) mmol/L ABG O2 Saturation (95-100) % ABG Base Excess ((-2)-(+3)) mmol/L O2 Delivery Device Sodium (135-145) mmol/L Potassium (3.6-5.0) mmol/L Chloride (101-111) mmol/L Carbon Dioxide (21.0-31.0) mmol/L Anion Gap BUN (7-18) mg/dL Creatinine (0.6-1.3) mg/dL Est Cr Clr Drug Dosing mL/min Estimated GFR (MDRD) BUN/Creatinine Ratio Glucose (74-105) mg/dL POC Glucose (70-105) mg/dl Lactic Acid 11.3 H (0.5-2.2) mmol/L Calcium (8.4-10.2) mg/dl Phosphorus (2.5-4.6) mg/dL Magnesium (1.8-2.5) mg/dL Total Bilirubin (0.2-1.0) mg/dL AST (10-42) IU/L ALT (10-60) IU/L Alkaline Phosphatase (42-121) IU/L Troponin I (0.00-0.02) ng/ml Total Protein (6.7-8.2) g/dl Albumin (3.2-5.5) g/dl Globulin Albumin/Globulin Ratio Amylase (28-100) U/L Lipase (22-51) U/L Ethyl Alcohol mg/dL Ketones Result Diagrams: 11/30/17 17:22 11/30/17 17:22 Problem List Initiated/Reviewed/Updated: Yes Orders Last 24hrs: Active Orders 24 hr Category Date Time Status Patient Status [ADT] Routine ADT 11/30/17 18:55 Active Ambulate [RC] ASDIRECTED Care 11/30/17 18:55 Active Bedrest Bathroom Privileges [RC] ASDIRECTED Care 11/30/17 18:55 Active Blood Glucose Check, Bedside [RC] ONETIME Care 11/30/17 17:07 Active Blood Glucose Check, Bedside [RC] QIDACANDBED Care 11/30/17 18:55 Active Diabetes Education [RC] Click to Edit Care 11/30/17 18:57 Active EKG 12 Lead [EKG Documentation Completion] [RC] STAT Care 11/30/17 17:08 Active Height and Weight [RC] DAILY Care 11/30/17 18:55 Active Intake and Output [RC] QSHIFT Care 11/30/17 18:56 Active Oxygen Therapy [RC] PRN Care 11/30/17 18:55 Active Peripheral IV Care [RC] . DIRECTED Care 11/30/17 17:08 Active Peripheral IV Care [RC] . DIRECTED Care 11/30/17 17:09 Active Up ad [place] [RC] ASDIRECTED Care 11/30/17 18:55 Active VTE/DVT Education [RC] PER UNIT ROUTINE Care 11/30/17 18:55 Active Vital Signs [RC] Q4H Care 11/30/17 18:55 Active Consistent Carbohydrate Diet [DIET] Diet 11/30/17 Dinner Active Chest 1V Frontal [CR] Stat Exams 11/30/17 17:08 Taken BASIC METABOLIC PANEL,BMP [CHEM] AM Lab 12/01/17 05:11 Ordered CBC WITH AUTO DIFF [HEME] AM Lab 12/01/17 05:11 Ordered CULTURE BLOOD [BC] Stat Lab 11/30/17 17:22 Received CULTURE BLOOD [BC] Stat Lab 11/30/17 17:26 Received DRUG SCREEN URINE BIORAD [URCHEM] Stat Lab 11/30/17 17:08 Ordered LAMOTRIGINE, SERUM [REF] Routine Lab 11/30/17 17:22 Received MAGNESIUM [CHEM] AM Lab 12/01/17 05:11 Ordered UA W/MICROSCOPIC [URIN] Stat Lab 11/30/17 17:24 Ordered Acetaminophen [Tylenol] Med 11/30/17 18:55 Active 650 mg PO Q4H PRN Heparin Sodium Med 11/30/17 22:00 Active 5,000 units SUBCUT Q8HR Insulin Aspart [NovoLOG] Med 11/30/17 19:15 Active 0 unit SUBCUT ASDIRECTED PRN Insulin Aspart [NovoLOG] Med 12/01/17 08:00 Active See Protocol SUBCUT TIDAC Insulin Detemir [Levemir] Med 11/30/17 21:00 Ordered 33 unit SUBCUT BEDTIME Ondansetron [Zofran] Med 11/30/17 18:55 Active 4 mg IVPUSH Q4H PRN Sodium Chloride 0.9% [Normal Saline] 1,000 ml Med 11/30/17 18:26 Active IV .BOLUS Sodium Chloride 0.9% [Normal Saline] 1,000 ml Med 11/30/17 19:00 Active IV ASDIRECTED Sodium Chloride 0.9% [Saline Flush] Med 11/30/17 17:07 Active 10 ml FLUSH ASDIRECTED PRN Sodium Chloride 0.9% [Saline Flush] Med 11/30/17 17:09 Active 10 ml FLUSH ASDIRECTED PRN lamoTRIgine Med 11/30/17 21:00 Active 150 mg PO BEDTIME Blood Culture x2 Reflex Set [OM.PC] Stat Ot 11/30/17 17:09 Ordered Glucose Management Sub Q Reflex [OM.PC] Click To Edit Oth 11/30/17 18:55 Ordered Peripheral IV Insertion Adult [OM.PC] Stat Ot 11/30/17 17:07 Ordered Peripheral IV Insertion Adult [OM.PC] Stat Ot 11/30/17 17:08 Ordered Seizure Precautions [OM.PC] Routine Oth 11/30/17 17:11 Ordered Resuscitation Status Routine Resus Stat 11/30/17 18:55 Ordered Medication Orders Acetaminophen (Tylenol) 650 mg PO Q4H PRN PRN Reason: Pain (Mild 1-3)/fever Heparin Sodium (Porcine) (Heparin Sodium) 5,000 units SUBCUT Q8HR BUZZ Sodium Chloride (Normal Saline) 1,000 mls @ 999 mls/hr IV .BOLUS ONE Stop: 11/30/17 19:26 Last Admin: 11/30/17 18:28 Dose: 999 mls/hr Sodium Chloride (Normal Saline) 1,000 mls @ 150 mls/hr IV ASDIRECTED BUZZ Insulin Aspart (Novolog) 0 unit SUBCUT TIDAC BUZZ; Protocol Insulin Aspart (Novolog) 0 unit SUBCUT ASDIRECTED PRN PRN Reason: ANYTIME HE IS EATING Lamotrigine (Lamotrigine) 150 mg PO BEDTIME BUZZ Ondansetron HCl (Zofran) 4 mg IVPUSH Q4H PRN PRN Reason: Nausea/Vomiting Sodium Chloride (Saline Flush) 10 ml FLUSH ASDIRECTED PRN PRN Reason: Keep Vein Open Last Admin: 11/30/17 17:19 Dose: 10 ml Sodium Chloride (Saline Flush) 10 ml FLUSH ASDIRECTED PRN PRN Reason: Keep Vein Open Last Admin: 11/30/17 17:26 Dose: 10 ml Assessment/Plan Comment:: 22-year-old male with a past medical history of seizure disorder, type 1 diabetes who presents with a seizure. #Seizure disorder Likely triggered by video game, seizure threshold likely lowered due to noncompliance to lamotrigine Follow-up on lamotrigine levels Counseled patient extensively on the need to improve compliance with seizure medication Continue oral lamotrigine at current dose Follow-up with the neurology clinic next week #Lactic acidosis Likely secondary to tonic-clonic seizures IV fluids normal saline at 150 ml/hr Recheck BMP in the morning #Type 1 diabetes Accu-Cheks 3 times a day before meals and at bedtime Lispro 8 units 3 times a day before meals, Lantus 32 units at bedtime [home dose ] Carbohydrate controlled diet #DVT prophylaxis subcutaneous heparin
[2017-11-30] MEDS: Sodium Chloride 0.9% 1,000 ML IV SCH (19:31)
[2017-11-30] MEDS: Metoclopramide 10 MG/2 ML SDV IVPUSH PRN (19:38)
[2017-11-30] MEDS ORDERED: Insulin Detemir 100 Units/ML 3 ML Pen SUBCUT SCH (21:00)
[2017-11-30] MEDS ORDERED: lamoTRIgine 100 MG Tab PO SCH (21:00)
[2017-11-30] MEDS: Heparin Sodium 5,000 Units/ML Vial SUBCUT SCH (21:21)
[2017-12-01] MEDS: Metoclopramide 10 MG/2 ML SDV IVPUSH PRN ×2 (01:24→05:28)
[2017-12-01] MEDS: Sodium Chloride 0.9% 1,000 ML IV SCH ×2 (02:09→08:49)
[2017-12-01] MEDS ORDERED: Ondansetron 4 MG/2 ML SDV IV ONE (02:35)
[2017-12-01] MEDS: Heparin Sodium 5,000 Units/ML Vial SUBCUT SCH (05:08)
[2017-12-01 07:03] LABS: ANION GAP 11.8; CHLORIDE,CL 107 mmol/L (101-111); SODIUM,NA 138 mmol/L (135-145)
[2017-12-01] MEDS: Insulin Aspart 100 Units/ML 3 ML Pen SUBCUT PRN ×2 (08:31→12:21)
[2017-12-01] MEDS: Insulin Aspart 100 Units/ML 3 ML Pen SUBCUT SCH ×2 (08:31→12:20)
[2017-12-01] MEDS ORDERED: Insulin Detemir 100 Units/ML 3 ML Pen SUBCUT SCH (09:00)
[2017-12-01] MEDS ORDERED: lamoTRIgine 100 MG Tab PO SCH (09:00)
--- NOTE | 2017-12-01 11:00 | PCM.DCSUM1 ---
Discharge Summary - Hospital Course Free Text/Narrative:: 22-year-old male with a past medical history of type 1 diabetes, seizure disorder who presents after experiencing a generalized tonic-clonic seizure today. Likely triggered by a new video game patient was playing, patient also admitted to non-compliance with his seizure medication (lamictal 150 mg bid). He was admitted for observation overnight, there was no recurrence of seizure episodes. He will follow up with the Neurology clinic next week. Also to follow up on lamictal levels. Counselled on need to be compliant with medications. No driving until approved by the Neurologist. - Discharge Data Discharge Date: 12/01/17 Discharge Disposition: Home, Self-Care 01 Condition: Good - Discharge Diagnosis/Problem(s) (1) Seizure disorder SNOMED Code(s): 646143778 ICD Code: G40.909 - EPILEPSY, UNSP, NOT INTRACTABLE, WITHOUT STATUS EPILEPTICUS Status: Chronic Current Visit: No - Patient Instructions Diet: Usual Diet as Tolerated, Diabetic Diet Activity: As Tolerated Driving: Do Not Drive Showering/Bathing: May Shower - Discharge Plan Home Medications: Home Meds Insulin Aspart [Novolog] 3 units SUBCUT ASDIRECTED 10/18/13 [History] Insulin Glarg,Human.Rec.Analog [Lantus Solostar] 33 unit SUBCUT BEDTIME [History] lamoTRIgine [Lamotrigine] 150 tab PO BID 07/20/17 [History] Forms: ED Department Discharge Referrals: PCP,Unobtain [Primary Care Provider] - - General Info Admission Dx/Problem (Free Text: Admission Diagnosis/Problem Admission Diagnosis/Problem Seizure disorder Subjective Update: No seizures overnight. No new complaints this morning. - Review of Systems General: Reports: No Symptoms HEENT: Reports: No Symptoms Pulmonary: Reports: No Symptoms Cardiovascular: Reports: No Symptoms Gastrointestinal: Reports: No Symptoms Genitourinary: Reports: No Symptoms Musculoskeletal: Reports: No Symptoms - Patient Data Vitals - Most Recent: Last Vital Signs Temp 36.8 C 12/01/17 07:58 Pulse 86 12/01/17 07:58 Resp 20 12/01/17 07:58 BP 110/60 12/01/17 07:58 Pulse Ox 98 12/01/17 07:58 Weight - Most Recent: 58.967 kg I&O - Last 24 hours: Intake & Output 11/30/17 12/01/17 12/01/17 22:59 06:59 14:59 Intake Total 1999 1350 1360 Output Total 1950 Balance 1999 -600 1360 Lab Results - Last 24 hrs: Laboratory Results - last 24 hr 11/30/17 11/30/17 11/30/17 Range/Units 17:04 17:15 17:22 WBC (5.0-10.0) 10^3/uL RBC (4.6-6.2) 10^6/uL Hgb (14.0-18.0) g/dL Hct (40.0-54.0) % MCV (80-100) fL MCH (27.0-34.0) pg MCHC (33.0-35.0) g/dL Plt Count (150-450) 10^3/uL Neut % (Auto) (42.2-75.2) % Lymph % (Auto) (20.5-50.1) % Pershing % (Auto) (2-8) % Eos % (Auto) (1.0-3.0) % Baso % (Auto) (0.0-1.0) % ABG pH 7.29 L (7.35-7.45) ABG pCO2 23 L (35-45) mmHg ABG pO2 124 H (70-100) mmHg ABG HCO3 10.4 L (22-26) mmol/L ABG O2 Saturation 98 (95-100) % ABG Base Excess -14 L ((-2)-(+3)) mmol/L O2 Delivery Device Room air Sodium 137 (135-145) mmol/L Potassium 3.7 (3.6-5.0) mmol/L Chloride 102 (101-111) mmol/L Carbon Dioxide 11.0 L D (21.0-31.0) mmol/L Anion Gap 27.7 BUN 13 (7-18) mg/dL Creatinine 1.1 (0.6-1.3) mg/dL Est Cr Clr Drug Dosing 88.60 mL/min Estimated GFR (MDRD) > 60 BUN/Creatinine Ratio 11.81 Glucose 146 H (74-105) mg/dL POC Glucose 136 H (70-105) mg/dl Lactic Acid (0.5-2.2) mmol/L Calcium 9.9 (8.4-10.2) mg/dl Phosphorus 3.6 (2.5-4.6) mg/dL Magnesium 2.9 H (1.8-2.5) mg/dL Total Bilirubin 0.8 (0.2-1.0) mg/dL AST 51 H (10-42) IU/L ALT 35 (10-60) IU/L Alkaline Phosphatase 126 H (42-121) IU/L Troponin I < 0.02 (0.00-0.02) ng/ml Total Protein 8.2 (6.7-8.2) g/dl Albumin 4.8 (3.2-5.5) g/dl Globulin 3.4 Albumin/Globulin Ratio 1.41 Amylase 55 (28-100) U/L Lipase 16 L (22-51) U/L Urine Color (YELLOW) Urine Appearance (CLEAR) Urine pH (5.0-9.0) Ur Specific [place] (1.005-1.030) Urine Protein (NEGATIVE) Urine Glucose (UA) (NEGATIVE) Urine Ketones (NEGATIVE) Urine Occult Blood (NEGATIVE) Urine Nitrite (NEGATIVE) Urine Bilirubin (NEGATIVE) Urine Urobilinogen (0.2-1.0) mg/dL Ur Leukocyte Esterase (NEGATIVE) Urine RBC /HPF Urine WBC (0-5/HPF) /HPF Ur Epithelial Cells /HPF Urine Bacteria (0-FEW/HPF) /HPF Urine Opiates Screen (NEGATIVE) Ur Oxycodone Screen (NEGATIVE) Urine Methadone Screen (NEGATIVE) Ur Barbiturates Screen (NEGATIVE) U Tricyclic Antidepress (NEGATIVE) Ur Phencyclidine Scrn (NEGATIVE) Ur Amphetamine Screen (NEGATIVE) U Methamphetamines Scrn (NEGATIVE) Urine MDMA Screen (NEGATIVE) U Benzodiazepines Scrn (NEGATIVE) Urine Cocaine Screen (NEGATIVE) U Marijuana (THC) Screen (NEGATIVE) Ethyl Alcohol < 5 mg/dL Ketones Negative 11/30/17 11/30/17 11/30/17 Range/Units 17:22 17:22 21:00 WBC 10.9 H (5.0-10.0) 10^3/uL RBC 6.00 (4.6-6.2) 10^6/uL Hgb 17.8 (14.0-18.0) g/dL Hct 52.0 (40.0-54.0) % MCV 86.7 (80-100) fL MCH 29.7 (27.0-34.0) pg MCHC 34.2 (33.0-35.0) g/dL Plt Count 338 D (150-450) 10^3/uL Neut % (Auto) 56.4 (42.2-75.2) % Lymph % (Auto) 34.1 (20.5-50.1) % [place]hing % (Auto) 8.1 H (2-8) % Eos % (Auto) 1.0 (1.0-3.0) % Baso % (Auto) 0.4 (0.0-1.0) % ABG pH (7.35-7.45) ABG pCO2 (35-45) mmHg ABG pO2 (70-100) mmHg ABG HCO3 (22-26) mmol/L ABG O2 Saturation (95-100) % ABG Base Excess ((-2)-(+3)) mmol/L O2 Delivery Device Sodium (135-145) mmol/L Potassium (3.6-5.0) mmol/L Chloride (101-111) mmol/L Carbon Dioxide (21.0-31.0) mmol/L Anion Gap BUN (7-18) mg/dL Creatinine (0.6-1.3) mg/dL Est Cr Clr Drug Dosing mL/min Estimated GFR (MDRD) BUN/Creatinine Ratio Glucose (74-105) mg/dL POC Glucose (70-105) mg/dl Lactic Acid 11.3 H (0.5-2.2) mmol/L Calcium (8.4-10.2) mg/dl Phosphorus (2.5-4.6) mg/dL Magnesium (1.8-2.5) mg/dL Total Bilirubin (0.2-1.0) mg/dL AST (10-42) IU/L ALT (10-60) IU/L Alkaline Phosphatase (42-121) IU/L Troponin I (0.00-0.02) ng/ml Total Protein (6.7-8.2) g/dl Albumin (3.2-5.5) g/dl Globulin Albumin/Globulin Ratio Amylase (28-100) U/L Lipase (22-51) U/L Urine Color Yellow (YELLOW) Urine Appearance Clear (CLEAR) Urine pH 5.5 (5.0-9.0) Ur Specific [place] 1.025 (1.005-1.030) Urine Protein 30 H (NEGATIVE) Urine Glucose (UA) 100 H (NEGATIVE) Urine Ketones 15 H (NEGATIVE) Urine Occult Blood Trace-lysed H (NEGATIVE) Urine Nitrite Negative (NEGATIVE) Urine Bilirubin Negative (NEGATIVE) Urine Urobilinogen 0.2 (0.2-1.0) mg/dL Ur Leukocyte Esterase Negative (NEGATIVE) Urine RBC 0-5 /HPF Urine WBC 0-5 (0-5/HPF) /HPF Ur Epithelial Cells Occasional /HPF Urine Bacteria Few (0-FEW/HPF) /HPF Urine Opiates Screen (NEGATIVE) Ur Oxycodone Screen (NEGATIVE) Urine Methadone Screen (NEGATIVE) Ur Barbiturates Screen (NEGATIVE) U Tricyclic Antidepress (NEGATIVE) Ur Phencyclidine Scrn (NEGATIVE) Ur Amphetamine Screen (NEGATIVE) U Methamphetamines Scrn (NEGATIVE) Urine MDMA Screen (NEGATIVE) U Benzodiazepines Scrn (NEGATIVE) Urine Cocaine Screen (NEGATIVE) U Marijuana (THC) Screen (NEGATIVE) Ethyl Alcohol mg/dL Ketones 11/30/17 11/30/17 12/01/17 Range/Units 21:00 21:12 03:13 WBC (5.0-10.0) 10^3/uL RBC (4.6-6.2) 10^6/uL Hgb (14.0-18.0) g/dL Hct (40.0-54.0) % MCV (80-100) fL MCH (27.0-34.0) pg MCHC (33.0-35.0) g/dL Plt Count (150-450) 10^3/uL Neut % (Auto) (42.2-75.2) % Lymph % (Auto) (20.5-50.1) % [place]hing % (Auto) (2-8) % Eos % (Auto) (1.0-3.0) % Baso % (Auto) (0.0-1.0) % ABG pH (7.35-7.45) ABG pCO2 (35-45) mmHg ABG pO2 (70-100) mmHg ABG HCO3 (22-26) mmol/L ABG O2 Saturation (95-100) % ABG Base Excess ((-2)-(+3)) mmol/L O2 Delivery Device Sodium (135-145) mmol/L Potassium (3.6-5.0) mmol/L Chloride (101-111) mmol/L Carbon Dioxide (21.0-31.0) mmol/L Anion Gap BUN (7-18) mg/dL Creatinine (0.6-1.3) mg/dL Est Cr Clr Drug Dosing mL/min Estimated GFR (MDRD) BUN/Creatinine Ratio Glucose (74-105) mg/dL POC Glucose 152 H 187 H (70-105) mg/dl Lactic Acid (0.5-2.2) mmol/L Calcium (8.4-10.2) mg/dl Phosphorus (2.5-4.6) mg/dL Magnesium (1.8-2.5) mg/dL Total Bilirubin (0.2-1.0) mg/dL AST (10-42) IU/L ALT (10-60) IU/L Alkaline Phosphatase (42-121) IU/L Troponin I (0.00-0.02) ng/ml Total Protein (6.7-8.2) g/dl Albumin (3.2-5.5) g/dl Globulin Albumin/Globulin Ratio Amylase (28-100) U/L Lipase (22-51) U/L Urine Color (YELLOW) Urine Appearance (CLEAR) Urine pH (5.0-9.0) Ur Specific [place] (1.005-1.030) Urine Protein (NEGATIVE) Urine Glucose (UA) (NEGATIVE) Urine Ketones (NEGATIVE) Urine Occult Blood (NEGATIVE) Urine Nitrite (NEGATIVE) Urine Bilirubin (NEGATIVE) Urine Urobilinogen (0.2-1.0) mg/dL Ur Leukocyte Esterase (NEGATIVE) Urine RBC /HPF Urine WBC (0-5/HPF) /HPF Ur Epithelial Cells /HPF Urine Bacteria (0-FEW/HPF) /HPF Urine Opiates Screen Negative (NEGATIVE) Ur Oxycodone Screen Negative (NEGATIVE) Urine Methadone Screen Negative (NEGATIVE) Ur Barbiturates Screen Negative (NEGATIVE) U Tricyclic Antidepress Negative (NEGATIVE) Ur Phencyclidine Scrn Negative (NEGATIVE) Ur Amphetamine Screen Negative (NEGATIVE) U Methamphetamines Scrn Negative (NEGATIVE) Urine MDMA Screen Negative (NEGATIVE) U Benzodiazepines Scrn Negative (NEGATIVE) Urine Cocaine Screen Negative (NEGATIVE) U Marijuana (THC) Screen Negative (NEGATIVE) Ethyl Alcohol mg/dL Ketones 12/01/17 12/01/17 12/01/17 Range/Units 06:25 06:25 07:40 WBC 13.5 H (5.0-10.0) 10^3/uL RBC 4.68 (4.6-6.2) 10^6/uL Hgb 14.0 D (14.0-18.0) g/dL Hct 41.0 (40.0-54.0) % MCV 87.6 (80-100) fL MCH 29.9 (27.0-34.0) pg MCHC 34.1 (33.0-35.0) g/dL Plt Count 202 D (150-450) 10^3/uL Neut % (Auto) 85.9 H (42.2-75.2) % Lymph % (Auto) 6.9 L (20.5-50.1) % Pershing % (Auto) 7.0 (2-8) % Eos % (Auto) 0.1 L (1.0-3.0) % Baso % (Auto) 0.1 (0.0-1.0) % ABG pH (7.35-7.45) ABG pCO2 (35-45) mmHg ABG pO2 (70-100) mmHg ABG HCO3 (22-26) mmol/L ABG O2 Saturation (95-100) % ABG Base Excess ((-2)-(+3)) mmol/L O2 Delivery Device Sodium 138 (135-145) mmol/L Potassium 3.8 (3.6-5.0) mmol/L Chloride 107 (101-111) mmol/L Carbon Dioxide 23.0 D (21.0-31.0) mmol/L Anion Gap 11.8 BUN 14 (7-18) mg/dL Creatinine 1.2 (0.6-1.3) mg/dL Est Cr Clr Drug Dosing 81.22 mL/min Estimated GFR (MDRD) > 60 BUN/Creatinine Ratio Glucose 164 H (74-105) mg/dL POC Glucose 149 H (70-105) mg/dl Lactic Acid (0.5-2.2) mmol/L Calcium 8.3 L D (8.4-10.2) mg/dl Phosphorus (2.5-4.6) mg/dL Magnesium 2.0 (1.8-2.5) mg/dL Total Bilirubin (0.2-1.0) mg/dL AST (10-42) IU/L ALT (10-60) IU/L Alkaline Phosphatase (42-121) IU/L Troponin I (0.00-0.02) ng/ml Total Protein (6.7-8.2) g/dl Albumin (3.2-5.5) g/dl Globulin Albumin/Globulin Ratio Amylase (28-100) U/L Lipase (22-51) U/L Urine Color (YELLOW) Urine Appearance (CLEAR) Urine pH (5.0-9.0) Ur Specific [place] (1.005-1.030) Urine Protein (NEGATIVE) Urine Glucose (UA) (NEGATIVE) Urine Ketones (NEGATIVE) Urine Occult Blood (NEGATIVE) Urine Nitrite (NEGATIVE) Urine Bilirubin (NEGATIVE) Urine Urobilinogen (0.2-1.0) mg/dL Ur Leukocyte Esterase (NEGATIVE) Urine RBC /HPF Urine WBC (0-5/HPF) /HPF Ur Epithelial Cells /HPF Urine Bacteria (0-FEW/HPF) /HPF Urine Opiates Screen (NEGATIVE) Ur Oxycodone Screen (NEGATIVE) Urine Methadone Screen (NEGATIVE) Ur Barbiturates Screen (NEGATIVE) U Tricyclic Antidepress (NEGATIVE) Ur Phencyclidine Scrn (NEGATIVE) Ur Amphetamine Screen (NEGATIVE) U Methamphetamines Scrn (NEGATIVE) Urine MDMA Screen (NEGATIVE) U Benzodiazepines Scrn (NEGATIVE) Urine Cocaine Screen (NEGATIVE) U Marijuana (THC) Screen (NEGATIVE) Ethyl Alcohol mg/dL Ketones Med Orders - Current: Current Medications Acetaminophen (Tylenol) 650 mg PO Q4H PRN PRN Reason: Pain (Mild 1-3)/fever Last Admin: 11/30/17 19:38 Dose: 650 mg Heparin Sodium (Porcine) (Heparin Sodium) 5,000 units SUBCUT Q8HR [facility] Last Admin: 12/01/17 05:08 Dose: Not Given Sodium Chloride (Normal Saline) 1,000 mls @ 150 mls/hr IV ASDIRECTED BUZZ Last Admin: 12/01/17 08:49 Dose: 150 mls/hr Insulin Aspart (Novolog) 0 unit SUBCUT TIDAC [facility]; Protocol Last Admin: 12/01/17 08:31 Dose: Not Given Insulin Aspart (Novolog) 0 unit SUBCUT ASDIRECTED PRN PRN Reason: ANYTIME HE IS EATING Last Admin: 12/01/17 08:31 Dose: 9 units Insulin Detemir (Levemir) 33 unit SUBCUT BEDTIME [facility] Last Admin: 11/30/17 21:18 Dose: 33 units Lamotrigine (Lamotrigine) 150 mg PO BID [facility] Last Admin: 12/01/17 08:20 Dose: 150 mg Metoclopramide HCl (Reglan) 5 mg IVPUSH Q4H PRN PRN Reason: Nausea/Vomiting Last Admin: 12/01/17 05:28 Dose: 5 mg Ondansetron HCl (Zofran) 4 mg IVPUSH Q4H PRN PRN Reason: Nausea/Vomiting Last Admin: 12/01/17 00:43 Dose: 4 mg Sodium Chloride (Saline Flush) 10 ml FLUSH ASDIRECTED PRN PRN Reason: Keep Vein Open Last Admin: 11/30/17 17:19 Dose: 10 ml Sodium Chloride (Saline Flush) 10 ml FLUSH ASDIRECTED PRN PRN Reason: Keep Vein Open Last Admin: 11/30/17 17:26 Dose: 10 ml Discontinued Medications Sodium Chloride (Normal Saline) 1,000 mls @ 999 mls/hr IV .BOLUS ONE Stop: 11/30/17 18:10 Last Admin: 11/30/17 17:23 Dose: 999 mls/hr Sodium Chloride (Normal Saline) 1,000 mls @ 999 mls/hr IV .BOLUS ONE Stop: 11/30/17 19:26 Last Admin: 11/30/17 18:28 Dose: 999 mls/hr Insulin Detemir (Levemir) 33 unit SUBCUT DAILY [facility] Lamotrigine (Lamotrigine) 150 mg PO BEDTIME [facility] Last Admin: 11/30/17 20:02 Dose: 150 mg Ondansetron HCl (Zofran) 4 mg IV ONETIME ONE Stop: 11/30/17 17:11 Last Admin: 11/30/17 17:23 Dose: 4 mg Ondansetron HCl (Zofran) 4 mg IV ONETIME ONE Stop: 12/01/17 02:36 Last Admin: 12/01/17 03:09 Dose: 4 mg - Exam General: Reports: Alert, Oriented HEENT: Reports: Pupils Equal Neck: Reports: Supple Lungs: Reports: Clear to Auscultation Cardiovascular: Reports: Regular Rate, Regular Rhythm GI/Abdominal Exam: Normal Bowel Sounds
[2017-12-01 12:26] VITALS: BP 112/62
--- NOTE | 2017-12-03 11:16 | EKG ---
11/30/2017 - BOUNTING, TRACY HUERTA - FINDINGS: EKG shows a heart rate of 101. Rhythm is sinus tachycardia. Normal ST segments and T waves. [facility] /[id number]
== END 2017-12-01 13:16 | disposition home or self-care (01) ==
LOC: DL.ED 16:53 → UNDOADMOB 18:24 → INTOOBSV 18:24 → DL.MS 18:24
PROVIDERS: ADMIT Hospitalist; ATTEND Hospitalist
DX: G40.309 Generalized idiopathic epilepsy and epileptic syndromes, not intractable, without status epilepticus (principal); E10.9 Type 1 diabetes mellitus without complications; N17.9 Acute kidney failure, unspecified; Z79.4 Long term (current) use of insulin; Z79.899 Other long term (current) drug therapy
CPT/HCPCS: 36415; 36600; 71045; 80048; 80053; 80175; 80305; 81001; 82009; 82150; 82803; 82962; 83605; 83690; 83735; 84100; 84484; 85025; 87040; 93005; 93010; 96361; 96374; 96375; 96376; 99285; A9270; G0378; G0480; J1815; J2405; J2765; J7030; J7050; 99284

== ENCOUNTER 2018-09-20 19:24 | Emergency (ER) | payer BC ==
[2018-09-20] MEDS ORDERED: Ondansetron 4 MG/2 ML SDV IV ONE (20:11)
[2018-09-20] MEDS ORDERED: Sodium Chloride 0.9% 1,000 ML IV ONE (20:11)
--- NOTE | 2018-09-20 20:13 | EDM.PDOC ---
ED HPI GENERAL MEDICAL PROBLEM - General Stated Complaint: LOWER PART OF SPINAL CORD IS HURTING Time Seen by Provider: 09/20/18 20:11 Source of Information: Reports: Patient History Limitations: Reports: No Limitations - History of Present Illness INITIAL COMMENTS - FREE TEXT/NARRATIVE: onset vomiting nausea and mid back pain at noon. gives h/o mid back pain in his spine but it usually goes away so never seen anyone for it. Lower Thoracic Pain Score (Numeric/FACES): 8 - Related Data Allergies Allergy/AdvReac Type Severity Reaction Status Date / Time No Known Allergies Allergy Verified 02/29/16 07:17 Home Meds: Home Meds Insulin Aspart [Novolog] 3 units SUBCUT ASDIRECTED 10/18/13 [History] Insulin Glarg,Human.Rec.Analog [Lantus Solostar] 33 unit SUBCUT BEDTIME [History] lamoTRIgine 200 mg PO BID 09/20/18 [History] Past Medical History HEENT History: Reports: Impaired Vision, Other (See Below) Other HEENT History: wears glasses Cardiovascular History: Reports: None Respiratory History: Reports: None Gastrointestinal History: Reports: None Genitourinary History: Reports: Acute Renal Failure Musculoskeletal History: Reports: None Neurological History: Reports: Seizure Psychiatric History: Reports: None Endocrine/Metabolic History: Reports: Diabetes, Type I, Other (See Below) (DKA) Other Endocrine/Metabolic History: on insulin at home Hematologic History: Reports: None Immunologic History: Reports: None Oncologic (Cancer) History: Reports: None Dermatologic History: Reports: None - Infectious Disease History Infectious Disease History: Reports: None - Past Surgical History Head Surgeries/Procedures: Reports: None Social & Family History - Family History Family Medical History: Noncontributory Endocrine/Metabolic: Reports: IDDM - Caffeine Use Caffeine Use: Reports: Soda - Living Situation & Occupation Living situation: Reports: Single, with Family Occupation: Student ED ROS GENERAL - Review of Systems Review Of Systems: ROS reveals no pertinent complaints other than HPI. ED EXAM, GI/ABD - Physical Exam Exam: See Below Exam Limited By: No Limitations General Appearance: Alert, WD/WN, Mild Distress, Active Emesis Ears: Hearing Grossly Normal Throat/Mouth: Normal Voice, No Airway Compromise Head: Atraumatic Neck: Normal Inspection, Non-Tender, Full Range of Motion Respiratory/Chest: No Respiratory Distress Cardiovascular: Regular Rate, Rhythm GI/Abdominal Exam: Soft, Other (epiG region discomfort) Neurological: Alert, Oriented, Normal Cognition, Normal Gait, No Motor/Sensory Deficits Psychiatric: Flat Affect Skin Exam: Warm, Dry, Normal Color Lymphatic: No Adenopathy Course - Vital Signs Last Recorded V/S: Last Vital Signs Temp 37.6 C 09/20/18 21:02 Pulse 113 H 09/20/18 20:18 Resp 14 09/20/18 20:18 BP 122/75 09/20/18 20:18 Pulse Ox 97 09/20/18 20:18 - Orders/Labs/Meds Labs: Laboratory Tests 09/20/18 09/20/18 09/20/18 Range/Units 20:10 20:10 20:10 WBC 13.7 H (5.0-10.0) 10^3/uL RBC 5.79 (4.6-6.2) 10^6/uL Hgb 17.4 D (14.0-18.0) g/dL Hct 49.7 (40.0-54.0) % MCV 85.8 (80-100) fL MCH 30.1 (27.0-34.0) pg MCHC 35.0 (33.0-35.0) g/dL Plt Count 238 (150-450) 10^3/uL Neut % (Auto) 91.1 H (42.2-75.2) % Lymph % (Auto) 3.3 L (20.5-50.1) % [place] % (Auto) 5.4 (2-8) % Eos % (Auto) 0.1 L (1.0-3.0) % Baso % (Auto) 0.1 (0.0-1.0) % Sodium 135 (135-145) mmol/L Potassium 3.4 L (3.6-5.0) mmol/L Chloride 100 L (101-111) mmol/L Carbon Dioxide 21.0 (21.0-31.0) mmol/L Anion Gap 17.4 BUN 17 (7-18) mg/dL Creatinine 0.9 (0.6-1.3) mg/dL Est Cr Clr Drug Dosing 107.80 mL/min Estimated GFR (MDRD) > 60 BUN/Creatinine Ratio 18.88 Glucose 145 H (74-105) mg/dL Lactic Acid 1.7 (0.5-2.2) mmol/L Calcium 9.2 (8.4-10.2) mg/dl Total Bilirubin 1.6 H (0.2-1.0) mg/dL AST 35 (10-42) IU/L ALT 34 (10-60) IU/L Alkaline Phosphatase 124 H (42-121) IU/L Total Protein 7.4 (6.7-8.2) g/dl Albumin 4.5 (3.2-5.5) g/dl Globulin 2.9 Albumin/Globulin Ratio 1.55 Amylase 56 (28-100) U/L Lipase 14 L (22-51) U/L Urine Color (YELLOW) Urine Appearance (CLEAR) Urine pH (5.0-9.0) Ur Specific [place] (1.005-1.030) Urine Protein (NEGATIVE) Urine Glucose (UA) (NEGATIVE) Urine Ketones (NEGATIVE) Urine Occult Blood (NEGATIVE) Urine Nitrite (NEGATIVE) Urine Bilirubin (NEGATIVE) Urine Urobilinogen (0.2-1.0) mg/dL Ur Leukocyte Esterase (NEGATIVE) Urine RBC /HPF Urine WBC (0-5/HPF) /HPF Ur Epithelial Cells /HPF Urine Bacteria (0-FEW/HPF) /HPF Urine Mucus /LPF Urine Opiates Screen (NEGATIVE) Ur Oxycodone Screen (NEGATIVE) Urine Methadone Screen (NEGATIVE) Ur Barbiturates Screen (NEGATIVE) U Tricyclic Antidepress (NEGATIVE) Ur Phencyclidine Scrn (NEGATIVE) Ur Amphetamine Screen (NEGATIVE) U Methamphetamines Scrn (NEGATIVE) Urine MDMA Screen (NEGATIVE) U Benzodiazepines Scrn (NEGATIVE) Urine Cocaine Screen (NEGATIVE) U Marijuana (THC) Screen (NEGATIVE) Ketones Negative 09/20/18 09/20/18 Range/Units 21:02 21:02 WBC (5.0-10.0) 10^3/uL RBC (4.6-6.2) 10^6/uL Hgb (14.0-18.0) g/dL Hct (40.0-54.0) % MCV (80-100) fL MCH (27.0-34.0) pg MCHC (33.0-35.0) g/dL Plt Count (150-450) 10^3/uL Neut % (Auto) (42.2-75.2) % Lymph % (Auto) (20.5-50.1) % [place] % (Auto) (2-8) % Eos % (Auto) (1.0-3.0) % Baso % (Auto) (0.0-1.0) % Sodium (135-145) mmol/L Potassium (3.6-5.0) mmol/L Chloride (101-111) mmol/L Carbon Dioxide (21.0-31.0) mmol/L Anion Gap BUN (7-18) mg/dL Creatinine (0.6-1.3) mg/dL Est Cr Clr Drug Dosing mL/min Estimated GFR (MDRD) BUN/Creatinine Ratio Glucose (74-105) mg/dL Lactic Acid (0.5-2.2) mmol/L Calcium (8.4-10.2) mg/dl Total Bilirubin (0.2-1.0) mg/dL AST (10-42) IU/L ALT (10-60) IU/L Alkaline Phosphatase (42-121) IU/L Total Protein (6.7-8.2) g/dl Albumin (3.2-5.5) g/dl Globulin Albumin/Globulin Ratio Amylase (28-100) U/L Lipase (22-51) U/L Urine Color Dark yellow (YELLOW) Urine Appearance Clear (CLEAR) Urine pH 5.0 (5.0-9.0) Ur Specific [place] >= 1.030 (1.005-1.030) Urine Protein 30 H (NEGATIVE) Urine Glucose (UA) Negative (NEGATIVE) Urine Ketones >=160 H (NEGATIVE) Urine Occult Blood Trace-intact H (NEGATIVE) Urine Nitrite Negative (NEGATIVE) Urine Bilirubin Small H (NEGATIVE) Urine Urobilinogen 0.2 (0.2-1.0) mg/dL Ur Leukocyte Esterase Negative (NEGATIVE) Urine RBC 0-5 /HPF Urine WBC 0-5 (0-5/HPF) /HPF Ur Epithelial Cells Few /HPF Urine Bacteria Moderate H (0-FEW/HPF) /HPF Urine Mucus Moderate H /LPF Urine Opiates Screen Negative (NEGATIVE) Ur Oxycodone Screen Negative (NEGATIVE) Urine Methadone Screen Negative (NEGATIVE) Ur Barbiturates Screen Negative (NEGATIVE) U Tricyclic Antidepress Negative (NEGATIVE) Ur Phencyclidine Scrn Negative (NEGATIVE) Ur Amphetamine Screen Negative (NEGATIVE) U Methamphetamines Scrn Negative (NEGATIVE) Urine MDMA Screen Negative (NEGATIVE) U Benzodiazepines Scrn Negative (NEGATIVE) Urine Cocaine Screen Negative (NEGATIVE) U Marijuana (THC) Screen Negative (NEGATIVE) Ketones Meds: Medications Discontinued Medications Generic Name Dose Route Start Last Admin Trade Name Freq PRN Reason Stop Dose Admin Sodium Chloride 1,000 mls @ 999 mls/hr 09/20/18 20:11 09/20/18 20:32 Normal Saline IV 09/20/18 21:11 999 mls/hr .BOLUS ONE Administration Iopamidol 75 ml 09/20/18 21:24 09/20/18 21:29 Isovue-300 (61%) IVPUSH 09/20/18 21:25 75 ml ONETIME ONE Administration Ondansetron HCl 4 mg 09/20/18 20:11 09/20/18 20:32 Zofran IV 09/20/18 20:12 4 mg ONETIME ONE Administration - Re-Assessments/Exams Free Text/Narrative Re-Assessment/Exam: 09/20/18 22:55 results discussed with pt & family Departure - Departure Time of Disposition: 22:55 Disposition: Home, Self-Care 01 Condition: Fair Clinical Impression: Gastroenteritis Vomiting Qualifiers: Vomiting type: unspecified Vomiting Intractability: non-intractable Nausea presence: with nausea Qualified Code(s): R11.2 - Nausea with vomiting, unspecified - Discharge Information Forms: ED Department Discharge Additional Instructions: 1) no solid foods 2) liquid diet 3) follow up at clinic
[2018-09-20 20:50] LABS: ANION GAP 17.4; CHLORIDE,CL 100 mmol/L (101-111); SODIUM,NA 135 mmol/L (135-145)
[2018-09-20] MEDS ORDERED: Iopamidol 612 MG/ML 75 ML Bottle IVPUSH ONE (21:24)
[2018-09-21 05:32] VITALS: BP 109/65
== END 2018-09-20 23:05 | disposition home or self-care (01) ==
LOC: DL.ED 19:24
DX: K52.9 Noninfective gastroenteritis and colitis, unspecified (principal); E10.9 Type 1 diabetes mellitus without complications
CPT/HCPCS: 36415; 74177; 80053; 80305; 81001; 82009; 82150; 83605; 83690; 85025; 96361; 96374; 99284; J2405; J7030; Q9967

== ENCOUNTER 2019-03-29 16:03 | Inpatient (IN) | payer BC ==
[2019-03-29] MEDS ORDERED: Sodium Chloride 0.9% 10 ML Syringe FLUSH PRN (16:23)
[2019-03-29] MEDS ORDERED: Lactated Ringers 1,000 ML IV ONE ×2 (16:24→17:00)
[2019-03-29] MEDS ORDERED: Famotidine 20 MG/2 ML SDV IVPUSH ONE (16:25)
[2019-03-29] MEDS ORDERED: Ondansetron 4 MG/2 ML SDV IV ONE ×2 (16:25→17:01)
[2019-03-29 16:45] LABS: BASE EXCESS ARTERIAL -11 mmol/L ((-2)-(+3)); BICARBONATE,ARTERIAL 10.3 mmol/L (22-26); O2 SATURATION ARTERIAL 99 % (95-100); PO2 ARTERIAL 123 mmHg (70-100)
[2019-03-29 16:46] LABS: O2 DELIVERY DEVICE ROOM AIR
[2019-03-29 16:49] LABS: ALLEN TEST pos; PCO2 ARTERIAL 15 mmHg (35-45)
[2019-03-29 16:54] LABS: ANION GAP 25.9; CHLORIDE,CL 98 mmol/L (101-111); SODIUM,NA 134 mmol/L (135-145)
[2019-03-29] MEDS ORDERED: Insulin Regular, Human 100 Units/ML 3 ML Vial IV ONE (17:01)
--- NOTE | 2019-03-29 17:44 | EDM.PDOC ---
Scribed by Martha Vaughan 03/29/19 1722 for Lisbet Sullivan MD ED HPI GENERAL MEDICAL PROBLEM - General Chief Complaint: Diabetic Complaint Stated Complaint: VOMITING Time Seen by Provider: 03/29/19 16:22 Source of Information: Reports: Patient, RN, RN Notes Reviewed History Limitations: Reports: No Limitations - History of Present Illness INITIAL COMMENTS - FREE TEXT/NARRATIVE: Patient presents to ER by POV with chest pain and vomiting. He is unable to remember when chest pain started. Vomiting started at 1100 today 03/29/2019. Onset: Today Duration: Getting Worse Location: Reports: Chest, Abdomen Quality: Reports: Ache Severity: Moderate Improves with: Reports: None Worsens with: Reports: None Associated Symptoms: Reports: No Other Symptoms Chest Pain Score (Numeric/FACES): 8 - Related Data Allergies Allergy/AdvReac Type Severity Reaction Status Date / Time No Known Allergies Allergy Verified 03/29/19 16:15 Home Meds: Home Meds Insulin Aspart [Novolog] 3 units SUBCUT ASDIRECTED 10/18/13 [History] Insulin Glarg,Human.Rec.Analog [Lantus Solostar] 33 unit SUBCUT BEDTIME [History] lamoTRIgine 200 mg PO BID 09/20/18 [History] Past Medical History HEENT History: Reports: Impaired Vision, Other (See Below) Other HEENT History: wears glasses Cardiovascular History: Reports: None Respiratory History: Reports: None Gastrointestinal History: Reports: None Genitourinary History: Reports: Acute Renal Failure Musculoskeletal History: Reports: None Neurological History: Reports: Seizure Psychiatric History: Reports: None Endocrine/Metabolic History: Reports: Diabetes, Type I (with Hx of DKA), Other ( See Below) (DKA) Other Endocrine/Metabolic History: on insulin at home Hematologic History: Reports: None Immunologic History: Reports: None Oncologic (Cancer) History: Reports: None Dermatologic History: Reports: None - Infectious Disease History Infectious Disease History: Reports: None - Past Surgical History Head Surgeries/Procedures: Reports: None Social & Family History - Family History Family Medical History: Noncontributory Endocrine/Metabolic: Reports: IDDM - Caffeine Use Caffeine Use: Reports: Soda - Living Situation & Occupation Living situation: Reports: Single, with Family Occupation: Employed ED ROS GENERAL - Review of Systems Review Of Systems: ROS reveals no pertinent complaints other than HPI. ED EXAM GENERAL NO PERIP PULSE - Physical Exam Exam: See Below Exam Limited By: No Limitations General Appearance: Alert, Anxious, Thin, Other (Acutely ill appearing. Active emesis.) Eye Exam: Bilateral Eye: EOMI, Normal Inspection, PERRL Nose: Normal Inspection, Normal Mucosa, No Blood Throat/Mouth: Normal Lips, Normal Oropharynx, Normal Voice, No Airway Compromise , Other (Very dry oral mucosa.) Head: Atraumatic, Normocephalic Neck: Normal Inspection, Supple, Non-Tender, Full Range of Motion Respiratory/Chest: No Respiratory Distress, Lungs Clear, Normal Breath Sounds, No Accessory Muscle Use, Chest Non-Tender Cardiovascular: Regular Rate, Rhythm, No Edema, Tachycardia GI/Abdominal: Normal Bowel Sounds, Soft, No Organomegaly, No Distention, No Abnormal Bruit, No Mass, Tender (Mild epigastric tenderness) (Male) Exam: Deferred Rectal (Males) Exam: Deferred Back Exam: Normal Inspection Extremities: Normal Inspection, Normal Range of Motion, Non-Tender, Normal Capillary Refill, No Pedal Edema Neurological: Alert, Oriented, CN II-XII Intact, Normal Cognition, No Motor/ Sensory Deficits Psychiatric: Anxious Skin Exam: Warm, Dry, Intact, Pallor EKG INTERPRETATION EKG Date: 03/29/19 Time: 16:30 Rhythm: Other (sinus tachycardia) Rate (Beats/Min): 113 [place]: Normal P-Wave: Present QRS: Normal ST-T: Normal QT: Prolonged (borderline) Comparison: NA - No Prior EKG Course - Vital Signs Last Recorded V/S: Last Vital Signs Temp 97.6 F 03/29/19 16:27 Pulse 105 H 03/29/19 16:27 Resp 23 H 03/29/19 16:27 BP 114/66 03/29/19 16:27 Pulse Ox 99 03/29/19 16:27 - Orders/Labs/Meds Orders: Active Orders 24 hr Category Date Time Status Blood Glucose Check, Bedside [RC] ONETIME Care 03/29/19 16:23 Active EKG 12 Lead [EKG Documentation Completion] [RC] STAT Care 03/29/19 16:23 Active Peripheral IV Care [RC] . DIRECTED Care 03/29/19 16:24 Active CULTURE BLOOD [BC] Stat Lab 03/29/19 16:32 Received CULTURE BLOOD [BC] Stat Lab 03/29/19 16:34 Received DRUG SCREEN URINE BIORAD [URCHEM] Stat Lab 03/29/19 16:23 Ordered INFLUENZA A+B AG SCREEN [RM] Stat Lab 03/29/19 16:23 Ordered UA RFX LAI AND CULT IF INDIC [URIN] Stat Lab 03/29/19 16:23 Ordered Insulin Regular, Human [HumuLIN R] 100 unit Med 03/29/19 17:15 Active Sodium Chloride 0.9% [Normal Saline] 99 ml IV TITRATE Lactated Ringers [Ringers, Lactated] 1,000 ml Med 03/29/19 17:00 Active IV .BOLUS Sodium Chloride 0.9% [Saline Flush] Med 03/29/19 16:23 Active 10 ml FLUSH ASDIRECTED PRN Blood Culture x2 Reflex Set [OM.PC] Stat Oth 03/29/19 16:23 Ordered Peripheral IV Insertion Adult [OM.PC] Stat Oth 03/29/19 16:22 Ordered Medication Orders Lactated Ringer's (Ringers, Lactated) 1,000 mls @ 999 mls/hr IV .BOLUS ONE Stop: 03/29/19 18:00 Insulin Human Regular 100 unit (/ Sodium Chloride) 100 mls @ 6.29 mls/hr IV TITRATE BUZZ; Protocol Last Admin: 03/29/19 17:28 Dose: 0.1 units/kg/hr, 6.29 mls/hr Sodium Chloride (Saline Flush) 10 ml FLUSH ASDIRECTED PRN PRN Reason: Keep Vein Open Labs: Laboratory Tests 03/29/19 03/29/19 03/29/19 Range/Units 16:22 16:22 16:32 WBC 17.9 H (5.0-10.0) 10^3/uL RBC 5.55 (4.6-6.2) 10^6/uL Hgb 16.3 (14.0-18.0) g/dL Hct 48.6 (40.0-54.0) % MCV 87.6 (80-100) fL MCH 29.4 (27.0-34.0) pg MCHC 33.5 (33.0-35.0) g/dL Plt Count 270 (150-450) 10^3/uL Neut % (Auto) 88.8 H (42.2-75.2) % Lymph % (Auto) 7.5 L (20.5-50.1) % Hickman % (Auto) 3.4 (2-8) % Eos % (Auto) 0.1 L (1.0-3.0) % Baso % (Auto) 0.2 (0.0-1.0) % ABG pH (7.35-7.45) ABG pCO2 (35-45) mmHg ABG pO2 (70-100) mmHg ABG HCO3 (22-26) mmol/L ABG O2 Saturation (95-100) % ABG Base Excess ((-2)-(+3)) mmol/L Alexis Test O2 Delivery Device Sodium 134 L (135-145) mmol/L Potassium 4.9 D (3.6-5.0) mmol/L Chloride 98 L (101-111) mmol/L Carbon Dioxide 15.0 L (21.0-31.0) mmol/L Anion Gap 25.9 BUN 25 H (7-18) mg/dL Creatinine 1.2 (0.6-1.3) mg/dL Est Cr Clr Drug Dosing 83.28 mL/min Estimated GFR (MDRD) > 60 BUN/Creatinine Ratio 20.83 Glucose 337 H (74-105) mg/dL Lactic Acid 4.4 H (0.5-2.2) mmol/L Calcium 9.7 (8.4-10.2) mg/dl Magnesium 1.6 L (1.8-2.5) mg/dL Total Bilirubin 2.4 H (0.2-1.0) mg/dL AST 44 H (10-42) IU/L ALT 41 (10-60) IU/L Alkaline Phosphatase 129 H (42-121) IU/L Troponin I < 0.02 (0.00-0.02) ng/ml Total Protein 7.5 (6.7-8.2) g/dl Albumin 4.7 (3.2-5.5) g/dl Globulin 2.8 Albumin/Globulin Ratio 1.68 Amylase 51 (28-100) U/L Lipase 19 L (22-51) U/L Ethyl Alcohol < 5 mg/dL Ketones Trace 03/29/19 Range/Units 16:40 WBC (5.0-10.0) 10^3/uL RBC (4.6-6.2) 10^6/uL Hgb (14.0-18.0) g/dL Hct (40.0-54.0) % MCV (80-100) fL MCH (27.0-34.0) pg MCHC (33.0-35.0) g/dL Plt Count (150-450) 10^3/uL Neut % (Auto) (42.2-75.2) % Lymph % (Auto) (20.5-50.1) % Hickman % (Auto) (2-8) % Eos % (Auto) (1.0-3.0) % Baso % (Auto) (0.0-1.0) % ABG pH 7.46 H (7.35-7.45) ABG pCO2 15 L* (35-45) mmHg ABG pO2 123 H (70-100) mmHg ABG HCO3 10.3 L (22-26) mmol/L ABG O2 Saturation 99 (95-100) % ABG Base Excess -11 L ((-2)-(+3)) mmol/L Alexis Test pos O2 Delivery Device Room air Sodium (135-145) mmol/L Potassium (3.6-5.0) mmol/L Chloride (101-111) mmol/L Carbon Dioxide (21.0-31.0) mmol/L Anion Gap BUN (7-18) mg/dL Creatinine (0.6-1.3) mg/dL Est Cr Clr Drug Dosing mL/min Estimated GFR (MDRD) BUN/Creatinine Ratio Glucose (74-105) mg/dL Lactic Acid (0.5-2.2) mmol/L Calcium (8.4-10.2) mg/dl Magnesium (1.8-2.5) mg/dL Total Bilirubin (0.2-1.0) mg/dL AST (10-42) IU/L ALT (10-60) IU/L Alkaline Phosphatase (42-121) IU/L Troponin I (0.00-0.02) ng/ml Total Protein (6.7-8.2) g/dl Albumin (3.2-5.5) g/dl Globulin Albumin/Globulin Ratio Amylase (28-100) U/L Lipase (22-51) U/L Ethyl Alcohol mg/dL Ketones Meds: Medications Generic Name Dose Route Start Last Admin Trade Name Carmen PRN Reason Stop Dose Admin Lactated Ringer's 1,000 mls @ 999 mls/hr 03/29/19 17:00 Ringers, Lactated IV 03/29/19 18:00 .BOLUS ONE Insulin Human Regular 100 unit 100 mls @ 6.29 mls/hr 03/29/19 17:15 03/29/19 17:28 / Sodium Chloride IV 0.1 units/kg/hr TITRATE BUZZ 6.29 mls/hr Administration Protocol 0.1 UNITS/KG/HR Sodium Chloride 10 ml 03/29/19 16:23 Saline Flush FLUSH ASDIRECTED PRN Keep Vein Open Discontinued Medications Generic Name Dose Route Start Last Admin Trade Name Freq PRN Reason Stop Dose Admin Famotidine 20 mg 03/29/19 16:25 03/29/19 16:51 Pepcid IVPUSH 03/29/19 16:26 20 mg ONETIME ONE Administration Lactated Ringer's 1,000 mls @ 999 mls/hr 03/29/19 16:24 03/29/19 16:52 Ringers, Lactated IV 03/29/19 17:24 999 mls/hr .BOLUS ONE Administration Insulin Human Regular 6 unit 03/29/19 17:01 03/29/19 17:27 Humulin R IV 03/29/19 17:02 6 units ONETIME ONE Administration Ondansetron HCl 4 mg 03/29/19 16:25 03/29/19 16:51 Zofran IV 03/29/19 16:26 4 mg ONETIME ONE Administration Ondansetron HCl 4 mg 03/29/19 17:01 Zofran IV 03/29/19 17:02 ONETIME ONE - Radiology Interpretation Free Text/Narrative:: [facility] Final Radiology Report Call: [phone] assistance Online chat: [email or web address] Name: TRACY RAHMAN Age: 24Years M Date: 03/29/2019 SSN: -- : [id number] Study: XR CHEST 1 VIEW FRONTAL Requesting Physician: LISBET SULLIVAN Images: 1 Addl Studies: Provided Clinical History: Contrast: Contrast Medium: Contrast Amount: Contrast Method: CONFIDENTIALITY STATEMENT This report is intended only for use by the referring physician, and only in accordance with law. If you received this in error, call [phone]. Page 1 of 1 PROCEDURE INFORMATION: Exam: XR Chest, 1 View Exam date and time: 03/29/2019 5:11 PM Clinical history: 24 years old, male; Other: Chest pain TECHNIQUE: Imaging protocol: XR of the chest Views: 1 view. COMPARISON: CR Chest 1V Frontal 11/30/2017 5:31 PM FINDINGS: Tubes, catheters and devices: EKG leads overlie the chest. Lungs: Unremarkable. No consolidation. Pleural space: Unremarkable. No pleural effusion. No pneumothorax. Heart/Mediastinum: Unremarkable. No cardiomegaly. Bones/joints: Unremarkable. IMPRESSION: 1. No acute findings. 2. No significant change is identified since the prior exam. Thank you for allowing us to participate in the care of your patient. Dictated and Authenticated by: Efrain Webb MD 03/29/2019 5:18 PM Central Time ([place] & [place]) - Re-Assessments/Exams Free Text/Narrative Re-Assessment/Exam: 03/29/19 17:39 Pt with DM Type 1 with mild ketosis, ABG with pH 7.46, blood glucose 337, lactic acid 4.4, WBC 17.9 and active emesis. Pt has Hx of DKA. I feel pt is approaching DKA although his pH is not yet acidotic. Plan to admit pt to Dr. Morales. Departure - Departure Time of Disposition: 17:43 (admit to Dr. Morales) Disposition: Admitted As Inpatient 67 Condition: Serious Clinical Impression: Diabetic ketosis without coma, Hyperglycemia, Vomiting, Dehydration - Discharge Information *PRESCRIPTION DRUG MONITORING PROGRAM REVIEWED*: No *COPY OF PRESCRIPTION DRUG MONITORING REPORT IN PATIENT CHERRI: No Forms: ED Department Discharge - My Orders Last 24 Hours: My Active Orders 03/29/19 16:22 Peripheral IV Insertion Adult [OM.PC] Stat 03/29/19 16:23 Blood Glucose Check, Bedside [RC] ONETIME EKG 12 Lead [EKG Documentation Completion] [RC] STAT DRUG SCREEN URINE BIORAD [URCHEM] Stat INFLUENZA A+B AG SCREEN [RM] Stat UA RFX LAI AND CULT IF INDIC [URIN] Stat Sodium Chloride 0.9% [Saline Flush] 10 ml FLUSH ASDIRECTED PRN Blood Culture x2 Reflex Set [OM.PC] Stat 03/29/19 16:24 Peripheral IV Care [RC] . DIRECTED 03/29/19 16:32 CULTURE BLOOD [BC] Stat 03/29/19 16:34 CULTURE BLOOD [BC] Stat 03/29/19 17:00 Lactated Ringers [Ringers, Lactated] 1,000 ml IV .BOLUS 03/29/19 17:15 Insulin Regular, Human [HumuLIN R] 100 unit Sodium Chloride 0.9% [Normal Saline] 99 ml IV TITRATE - Assessment/Plan Last 24 Hours: My Active Orders 03/29/19 16:22 Peripheral IV Insertion Adult [OM.PC] Stat 03/29/19 16:23 Blood Glucose Check, Bedside [] ONETIME EKG 12 Lead [EKG Documentation Completion] [RC] STAT DRUG SCREEN URINE BIORAD [URCHEM] Stat INFLUENZA A+B AG SCREEN [] Stat UA RFX LAI AND CULT IF INDIC [URIN] Stat Sodium Chloride 0.9% [Saline Flush] 10 ml FLUSH ASDIRECTED PRN Blood Culture x2 Reflex Set [OM.PC] Stat 03/29/19 16:24 Peripheral IV Care [RC] . DIRECTED 03/29/19 16:32 CULTURE BLOOD [BC] Stat 03/29/19 16:34 CULTURE BLOOD [BC] Stat 03/29/19 17:00 Lactated Ringers [Ringers, Lactated] 1,000 ml IV .BOLUS 03/29/19 17:15 Insulin Regular, Human [HumuLIN R] 100 unit Sodium Chloride 0.9% [Normal Saline] 99 ml IV TITRATE I have read and agree with the documentation that has been completed regarding this visit. By signing this record, I attest that the documentation was completed in my physical presence and is an accurate record of the encounter.
--- NOTE | 2019-03-29 19:33 | PCM.HP ---
H&P History of Present Illness - General Date of Service: 03/29/19 Admit Problem/Dx: Admission Diagnosis/Problem Admission Diagnosis/Problem Diabetic ketoacidosis without coma Source of Information: Patient, Family, Old Records History Limitations: Reports: No Limitations - History of Present Illness Initial Comments - Free Text/Narative: This is a 24 Y/O M with history od Diabetes I dxed at 12 and on Insulin. He does not check his blood sugar regularly. patient presents to ER by POV with chest pain and vomiting. He is unable to remember when chest pain started but when I examined him in room his he has no more chest pain, he has vomited 4 times a at home and at the time of evaluation he does not have any nausea or Vomiting. He feels weak. His appetite is also poor . On admission his Blood sugar was 337 g/dl and he was acidotic with serum bicarbonate of 15. He also has elevated white count but has no fever or chill, no dysuria or flank pain. Onset of Symptoms: Reports: Today Severity: Mild Associated Symptoms: Reports: Chest Pain Chest Pain Score (Numeric/FACES): 8 - Related Data Allergies/Adverse Reactions: Allergies Allergy/AdvReac Type Severity Reaction Status Date / Time No Known Allergies Allergy Verified 03/29/19 19:34 Home Medications: Home Meds Insulin Aspart [Novolog] 3 units SUBCUT ASDIRECTED 10/18/13 [History] Insulin Glarg,Human.Rec.Analog [Lantus Solostar] 33 unit SUBCUT BEDTIME [History] lamoTRIgine 200 mg PO BID 09/20/18 [History] Past Medical History HEENT History: Reports: Impaired Vision, Other (See Below) Other HEENT History: wears glasses Cardiovascular History: Reports: None Respiratory History: Reports: None Gastrointestinal History: Reports: None Genitourinary History: Reports: Acute Renal Failure Musculoskeletal History: Reports: None Neurological History: Reports: Seizure Psychiatric History: Reports: None Endocrine/Metabolic History: Reports: Diabetes, Type I (with Hx of DKA), Other ( See Below) (DKA) Other Endocrine/Metabolic History: on insulin at home Hematologic History: Reports: None Immunologic History: Reports: None Oncologic (Cancer) History: Reports: None Dermatologic History: Reports: None - Infectious Disease History Infectious Disease History: Reports: None - Past Surgical History Head Surgeries/Procedures: Reports: None Social & Family History - Family History Family Medical History: Noncontributory Endocrine/Metabolic: Reports: IDDM - Tobacco Use Smoking Status *Q: Never Smoker - Caffeine Use Caffeine Use: Reports: Soda - Recreational Drug Use Recreational Drug Use: No - Living Situation & Occupation Living situation: Reports: Single, with Family Occupation: Employed H&P Review of Systems - Review of Systems: Review Of Systems: See Below General: Reports: Weakness, Decreased Appetite. Denies: Fever, Chills HEENT: Denies: Headaches, Hearing Changes, Sinus Congestion, Sore Throat Pulmonary: Denies: Shortness of Breath, Wheezing, Cough, Sputum Cardiovascular: Reports: Chest Pain (resolved) Gastrointestinal: Reports: Vomiting (not now had at home). Denies: Abdominal Pain, Difficulty Swallowing, Nausea Genitourinary: Denies: Dysuria, Burning, Urgency, Flank Pain Musculoskeletal: Denies: Neck Pain, Shoulder Pain, Foot Pain Skin: Denies: Cyanosis, Jaundice, Bruising, Rash Psychiatric: Denies: Confusion, Anxiety Neurological: Denies: Confusion, Numbness, Paresthesia, Tremors Hematologic/Lymphatic: Reports: No Symptoms Immunologic: Reports: No Symptoms Exam - Exam Exam: See Below - Vital Signs Vital Signs: Last Vital Signs Temp 36.8 C 03/29/19 18:21 Pulse 111 H 03/29/19 18:21 Resp 17 03/29/19 18:21 BP 117/61 03/29/19 18:21 Pulse Ox 100 03/29/19 18:21 Weight: 62.959 kg - Exam Quality Assessment: DVT Prophylaxis. No: Urinary Catheter General: Alert, Oriented, Cooperative HEENT: Conjunctiva Clear, EOMI, Hearing Intact, Mucosa Moist & Sigel Neck: Supple. No: Lymphadenopathy, JVD Lungs: Clear to Auscultation, Normal Respiratory Effort. No: Crackles, Wheezing Cardiovascular: Regular Rate, Regular Rhythm, Normal S1, Normal S2 GI/Abdominal Exam: Normal Bowel Sounds, Soft. No: No Distention (Male) Exam: Deferred Rectal (Males) Exam: Deferred Back Exam: Normal Inspection, Full Range of Motion Extremities: Normal Inspection, No Pedal Edema Skin: Warm, Dry, Intact Neurological: Cranial Nerves Intact, Reflexes Equal Bilateral Neuro Extensive - Mental Status: Alert, Oriented x3, Normal Mood/Affect, Normal Cognition, Memory Intact Neuro Extensive - Motor, Sensory, Reflexes: CN II-XII Intact, Normal Gait, Normal Reflexes Psychiatric: Alert, Normal Affect, Normal Mood - Patient Data Lab Results Last 24 hrs: Laboratory Results - last 24 hr 03/29/19 03/29/19 03/29/19 Range/Units 16:22 16:22 16:32 WBC 17.9 H (5.0-10.0) 10^3/uL RBC 5.55 (4.6-6.2) 10^6/uL Hgb 16.3 (14.0-18.0) g/dL Hct 48.6 (40.0-54.0) % MCV 87.6 (80-100) fL MCH 29.4 (27.0-34.0) pg MCHC 33.5 (33.0-35.0) g/dL Plt Count 270 (150-450) 10^3/uL Neut % (Auto) 88.8 H (42.2-75.2) % Lymph % (Auto) 7.5 L (20.5-50.1) % [place] % (Auto) 3.4 (2-8) % Eos % (Auto) 0.1 L (1.0-3.0) % Baso % (Auto) 0.2 (0.0-1.0) % ABG pH (7.35-7.45) ABG pCO2 (35-45) mmHg ABG pO2 (70-100) mmHg ABG HCO3 (22-26) mmol/L ABG O2 Saturation (95-100) % ABG Base Excess ((-2)-(+3)) mmol/L Alexis Test O2 Delivery Device Sodium 134 L (135-145) mmol/L Potassium 4.9 D (3.6-5.0) mmol/L Chloride 98 L (101-111) mmol/L Carbon Dioxide 15.0 L (21.0-31.0) mmol/L Anion Gap 25.9 BUN 25 H (7-18) mg/dL Creatinine 1.2 (0.6-1.3) mg/dL Est Cr Clr Drug Dosing 83.28 mL/min Estimated GFR (MDRD) > 60 BUN/Creatinine Ratio 20.83 Glucose 337 H (74-105) mg/dL Lactic Acid 4.4 H (0.5-2.2) mmol/L Calcium 9.7 (8.4-10.2) mg/dl Magnesium 1.6 L (1.8-2.5) mg/dL Total Bilirubin 2.4 H (0.2-1.0) mg/dL AST 44 H (10-42) IU/L ALT 41 (10-60) IU/L Alkaline Phosphatase 129 H (42-121) IU/L Troponin I < 0.02 (0.00-0.02) ng/ml Total Protein 7.5 (6.7-8.2) g/dl Albumin 4.7 (3.2-5.5) g/dl Globulin 2.8 Albumin/Globulin Ratio 1.68 Amylase 51 (28-100) U/L Lipase 19 L (22-51) U/L Ethyl Alcohol < 5 mg/dL Ketones Trace 03/29/19 Range/Units 16:40 WBC (5.0-10.0) 10^3/uL RBC (4.6-6.2) 10^6/uL Hgb (14.0-18.0) g/dL Hct (40.0-54.0) % MCV (80-100) fL MCH (27.0-34.0) pg MCHC (33.0-35.0) g/dL Plt Count (150-450) 10^3/uL Neut % (Auto) (42.2-75.2) % Lymph % (Auto) (20.5-50.1) % [place] % (Auto) (2-8) % Eos % (Auto) (1.0-3.0) % Baso % (Auto) (0.0-1.0) % ABG pH 7.46 H (7.35-7.45) ABG pCO2 15 L* (35-45) mmHg ABG pO2 123 H (70-100) mmHg ABG HCO3 10.3 L (22-26) mmol/L ABG O2 Saturation 99 (95-100) % ABG Base Excess -11 L ((-2)-(+3)) mmol/L Alexis Test pos O2 Delivery Device Room air Sodium (135-145) mmol/L Potassium (3.6-5.0) mmol/L Chloride (101-111) mmol/L Carbon Dioxide (21.0-31.0) mmol/L Anion Gap BUN (7-18) mg/dL Creatinine (0.6-1.3) mg/dL Est Cr Clr Drug Dosing mL/min Estimated GFR (MDRD) BUN/Creatinine Ratio Glucose (74-105) mg/dL Lactic Acid (0.5-2.2) mmol/L Calcium (8.4-10.2) mg/dl Magnesium (1.8-2.5) mg/dL Total Bilirubin (0.2-1.0) mg/dL AST (10-42) IU/L ALT (10-60) IU/L Alkaline Phosphatase (42-121) IU/L Troponin I (0.00-0.02) ng/ml Total Protein (6.7-8.2) g/dl Albumin (3.2-5.5) g/dl Globulin Albumin/Globulin Ratio Amylase (28-100) U/L Lipase (22-51) U/L Ethyl Alcohol mg/dL Ketones Result Diagrams: 03/29/19 16:22 03/29/19 16:22 Artemio Results Last 24 hrs: Microbiology 03/29/19 17:39 Influenza Type A Antigen Screen - Final Nasal, Unspecified NEGATIVE INFLUENZA A VIRUS AG REFERENCE RANGE: NEGATIVE Influenza Type B Antigen Screen - Final NEGATIVE INFLUENZA B VIRUS AG REFERENCE RANGE: NEGATIVE - Problem List (1) Acidosis due to type 1 diabetes mellitus SNOMED Code(s): 166432296, 803461067 ICD Code: E10.10 - TYPE 1 DIABETES MELLITUS WITH KETOACIDOSIS WITHOUT COMA Status: Acute Current Visit: No (2) Dehydration SNOMED Code(s): 10485466 ICD Code: E86.0 - DEHYDRATION Status: Acute Current Visit: No Onset Date: 10/25/14 (3) Diabetic ketosis without coma SNOMED Code(s): 470902289, 602800756 ICD Code: E13.10 - OTH DIABETES MELLITUS WITH KETOACIDOSIS WITHOUT COMA Status: Acute Current Visit: No Problem List Initiated/Reviewed/Updated: Yes Orders Last 24hrs: Active Orders 24 hr Category Date Time Status Admission Diagnosis [ADT] Routine ADT 03/29/19 18:51 Ordered Patient Status [ADT] Routine ADT 03/29/19 18:53 Active Blood Glucose Check, Bedside [RC] ONETIME Care 03/29/19 16:23 Active EKG 12 Lead [EKG Documentation Completion] [RC] STAT Care 03/29/19 16:23 Active Peripheral IV Care [RC] . DIRECTED Care 03/29/19 16:24 Active CULTURE BLOOD [BC] Stat Lab 03/29/19 16:32 Received CULTURE BLOOD [BC] Stat Lab 03/29/19 16:34 Received DRUG SCREEN URINE BIORAD [URCHEM] Stat Lab 03/29/19 16:23 Ordered UA RFX ARTEMIO AND CULT IF INDIC [URIN] Stat Lab 03/29/19 16:23 Ordered Insulin Regular, Human [HumuLIN R] 100 unit Med 03/29/19 17:15 Active Sodium Chloride 0.9% [Normal Saline] 99 ml IV TITRATE Sodium Chloride 0.9% [Saline Flush] Med 03/29/19 16:23 Active 10 ml FLUSH ASDIRECTED PRN Blood Culture x2 Reflex Set [OM.PC] Stat Oth 03/29/19 16:23 Ordered Peripheral IV Insertion Adult [OM.PC] Stat Oth 03/29/19 16:22 Ordered Medication Orders Insulin Human Regular 100 unit (/ Sodium Chloride) 100 mls @ 6.29 mls/hr IV TITRATE BUZZ; Protocol Last Admin: 03/29/19 17:28 Dose: 0.1 units/kg/hr, 6.29 mls/hr Sodium Chloride (Saline Flush) 10 ml FLUSH ASDIRECTED PRN PRN Reason: Keep Vein Open Assessment/Plan Comment:: This is a 24 y/O M with history of IDDM type I , dxed at 11came to ER with chest pain and vomiting at home. His blood sugar was 337 with bicarbonate of 15 , he was admitted for likely DKA and stated on Insulin drip 1. Diabetic Ketosis: The etiology not clear but he missed his insulin and do not check blood regularly -His bicarbonate is low and but he also has high blood sugar with leukocytosis -Will continue NS at 100 ml/hr -Will continue Insulin drip and once blood sugar is less than 200 then start him on high dose sliding scale insulin protocol and stop the insulin drip -Will check Blood as per protocol -Will give regular insulin before meal 20 units 2. High anion Gap Metabolic Acidosis: This is secondary to DKD, will continue Insulin Drip and also NS at 100 ml/hr 3. Diabetes I : will re-start his home Insulin , Glargine 33 units at bed time from tomorrow 4. DVT prophylaxis: Will start Enoxaparin 5. Leukocytosis: B/C is done, has no dysuria and no cough or fever or chill , will start empirically Ceftriaxone at 2 gm IV daily Code Status: Full Code
[2019-03-29] MEDS ORDERED: Docusate Sodium 100 MG Cap PO PRN (19:53)
[2019-03-29] MEDS ORDERED: Acetaminophen 325 MG Tab PO PRN (19:53)
[2019-03-29] MEDS: Sodium Chloride 0.9% 1,000 ML IV SCH (20:01)
[2019-03-29] MEDS ORDERED: INSULIN ASPART 3 UNIT SUBCUT SCH (20:15)
[2019-03-29] MEDS ORDERED: Insulin Lispro 100 Units/ML 3 ML Vial SUBCUT SCH (20:30)
[2019-03-29] MEDS: cefTRIAXone 2 GM in Sodium Chloride 0.9% 100 ML IV SCH (20:39)
[2019-03-29] MEDS: lamoTRIgine 100 MG Tab PO SCH (20:39)
[2019-03-29] MEDS ORDERED: Insulin Glarg,Human.Rec.Analog 100 UNIT/ML ML SUBCUT SCH (21:00)
[2019-03-30] MEDS ORDERED: Ondansetron 4 MG/2 ML SDV IV PRN (01:19)
[2019-03-30] MEDS: Sodium Chloride 0.9% 1,000 ML IV SCH ×2 (05:44→15:51)
[2019-03-30 06:25] LABS: ANION GAP 13.8; CHLORIDE,CL 104 mmol/L (101-111); SODIUM,NA 135 mmol/L (135-145)
[2019-03-30] MEDS: lamoTRIgine 100 MG Tab PO SCH ×2 (08:25→20:09)
[2019-03-30] MEDS: Insulin Lispro 100 Units/ML 3 ML Vial SUBCUT SCH ×4 (08:25→21:44)
[2019-03-30] MEDS: Enoxaparin 40 MG/0.4 ML Syringe SUBCUT SCH (08:28)
[2019-03-30] MEDS ORDERED: Enoxaparin 30 MG/0.3 ML Syringe SUBCUT SCH (09:00)
--- NOTE | 2019-03-30 09:30 | PCM.PN ---
- General Info Date of Service: 03/30/19 Admission Dx/Problem (Free Text): Admission Diagnosis/Problem Admission Diagnosis/Problem Diabetic ketoacidosis without coma Subjective Update: This is a 24 Y/O M with PMH of Diabetes Type I on Insulin who presented with chest pain, nausea and vomiting. He was found to be in DKA and subsequently admitted. His anioin gap is closed and he is been bridged with Lantus. This morning he was seen and examined with mother by bedside. Patient reports feeling a little better. He has o nausea or vomiting. He was able to tolerated breakfast. He denies abdominal pain, fever, chills. No chest pain, SOB. Labs reviewed. Functional Status: Reports: Pain Controlled - Review of Systems General: Reports: No Symptoms HEENT: Reports: No Symptoms Pulmonary: Reports: No Symptoms Cardiovascular: Reports: No Symptoms Gastrointestinal: Reports: No Symptoms Genitourinary: Reports: No Symptoms Musculoskeletal: Reports: No Symptoms Skin: Reports: No Symptoms Neurological: Reports: No Symptoms Psychiatric: Reports: No Symptoms - Patient Data Vitals - Most Recent: Last Vital Signs Temp 99.2 F 03/30/19 07:28 Pulse 99 03/30/19 07:54 Resp 18 03/30/19 07:28 BP 95/52 L 03/30/19 07:54 Pulse Ox 97 03/30/19 07:28 Weight - Most Recent: 138 lb 12.8 oz I&O - Last 24 Hours: Intake & Output 03/29/19 03/30/19 03/30/19 22:59 06:59 14:59 Intake Total 1716 Output Total 350 825 Balance -350 891 Lab Results Last 24 Hours: Laboratory Results - last 24 hr 03/29/19 03/29/19 03/29/19 Range/Units 16:22 16:22 16:32 WBC 17.9 H (5.0-10.0) 10^3/uL RBC 5.55 (4.6-6.2) 10^6/uL Hgb 16.3 (14.0-18.0) g/dL Hct 48.6 (40.0-54.0) % MCV 87.6 (80-100) fL MCH 29.4 (27.0-34.0) pg MCHC 33.5 (33.0-35.0) g/dL Plt Count 270 (150-450) 10^3/uL Neut % (Auto) 88.8 H (42.2-75.2) % Lymph % (Auto) 7.5 L (20.5-50.1) % [place] % (Auto) 3.4 (2-8) % Eos % (Auto) 0.1 L (1.0-3.0) % Baso % (Auto) 0.2 (0.0-1.0) % ABG pH (7.35-7.45) ABG pCO2 (35-45) mmHg ABG pO2 (70-100) mmHg ABG HCO3 (22-26) mmol/L ABG O2 Saturation (95-100) % ABG Base Excess ((-2)-(+3)) mmol/L Alexis Test O2 Delivery Device Sodium 134 L (135-145) mmol/L Potassium 4.9 D (3.6-5.0) mmol/L Chloride 98 L (101-111) mmol/L Carbon Dioxide 15.0 L (21.0-31.0) mmol/L Anion Gap 25.9 BUN 25 H (7-18) mg/dL Creatinine 1.2 (0.6-1.3) mg/dL Est Cr Clr Drug Dosing 83.28 mL/min Estimated GFR (MDRD) > 60 BUN/Creatinine Ratio 20.83 Glucose 337 H (74-105) mg/dL POC Glucose (70-105) mg/dl Lactic Acid 4.4 H (0.5-2.2) mmol/L Calcium 9.7 (8.4-10.2) mg/dl Magnesium 1.6 L (1.8-2.5) mg/dL Total Bilirubin 2.4 H (0.2-1.0) mg/dL AST 44 H (10-42) IU/L ALT 41 (10-60) IU/L Alkaline Phosphatase 129 H (42-121) IU/L Troponin I < 0.02 (0.00-0.02) ng/ml Total Protein 7.5 (6.7-8.2) g/dl Albumin 4.7 (3.2-5.5) g/dl Globulin 2.8 Albumin/Globulin Ratio 1.68 Amylase 51 (28-100) U/L Lipase 19 L (22-51) U/L Urine Color (YELLOW) Urine Appearance (CLEAR) Urine pH (5.0-9.0) Ur Specific [place] (1.005-1.030) Urine Protein (NEGATIVE) Urine Glucose (UA) (NEGATIVE) Urine Ketones (NEGATIVE) Urine Occult Blood (NEGATIVE) Urine Nitrite (NEGATIVE) Urine Bilirubin (NEGATIVE) Urine Urobilinogen (0.2-1.0) mg/dL Ur Leukocyte Esterase (NEGATIVE) Urine RBC /HPF Urine WBC (0-5/HPF) /HPF Ur Epithelial Cells (NOT SEEN) /HPF Urine Bacteria (0-FEW/HPF) /HPF Urine Opiates Screen (NEGATIVE) Ur Oxycodone Screen (NEGATIVE) Urine Methadone Screen (NEGATIVE) Ur Barbiturates Screen (NEGATIVE) U Tricyclic Antidepress (NEGATIVE) Ur Phencyclidine Scrn (NEGATIVE) Ur Amphetamine Screen (NEGATIVE) U Methamphetamines Scrn (NEGATIVE) Urine MDMA Screen (NEGATIVE) U Benzodiazepines Scrn (NEGATIVE) Urine Cocaine Screen (NEGATIVE) U Marijuana (THC) Screen (NEGATIVE) Ethyl Alcohol < 5 mg/dL Ketones Trace 03/29/19 03/29/19 03/29/19 Range/Units 16:40 17:24 19:12 WBC (5.0-10.0) 10^3/uL RBC (4.6-6.2) 10^6/uL Hgb (14.0-18.0) g/dL Hct (40.0-54.0) % MCV (80-100) fL MCH (27.0-34.0) pg MCHC (33.0-35.0) g/dL Plt Count (150-450) 10^3/uL Neut % (Auto) (42.2-75.2) % Lymph % (Auto) (20.5-50.1) % [place] % (Auto) (2-8) % Eos % (Auto) (1.0-3.0) % Baso % (Auto) (0.0-1.0) % ABG pH 7.46 H (7.35-7.45) ABG pCO2 15 L* (35-45) mmHg ABG pO2 123 H (70-100) mmHg ABG HCO3 10.3 L (22-26) mmol/L ABG O2 Saturation 99 (95-100) % ABG Base Excess -11 L ((-2)-(+3)) mmol/L Alexis Test pos O2 Delivery Device Room air Sodium (135-145) mmol/L Potassium (3.6-5.0) mmol/L Chloride (101-111) mmol/L Carbon Dioxide (21.0-31.0) mmol/L Anion Gap BUN (7-18) mg/dL Creatinine (0.6-1.3) mg/dL Est Cr Clr Drug Dosing mL/min Estimated GFR (MDRD) BUN/Creatinine Ratio Glucose (74-105) mg/dL POC Glucose 284 H 275 H (70-105) mg/dl Lactic Acid (0.5-2.2) mmol/L Calcium (8.4-10.2) mg/dl Magnesium (1.8-2.5) mg/dL Total Bilirubin (0.2-1.0) mg/dL AST (10-42) IU/L ALT (10-60) IU/L Alkaline Phosphatase (42-121) IU/L Troponin I (0.00-0.02) ng/ml Total Protein (6.7-8.2) g/dl Albumin (3.2-5.5) g/dl Globulin Albumin/Globulin Ratio Amylase (28-100) U/L Lipase (22-51) U/L Urine Color (YELLOW) Urine Appearance (CLEAR) Urine pH (5.0-9.0) Ur Specific [place] (1.005-1.030) Urine Protein (NEGATIVE) Urine Glucose (UA) (NEGATIVE) Urine Ketones (NEGATIVE) Urine Occult Blood (NEGATIVE) Urine Nitrite (NEGATIVE) Urine Bilirubin (NEGATIVE) Urine Urobilinogen (0.2-1.0) mg/dL Ur Leukocyte Esterase (NEGATIVE) Urine RBC /HPF Urine WBC (0-5/HPF) /HPF Ur Epithelial Cells (NOT SEEN) /HPF Urine Bacteria (0-FEW/HPF) /HPF Urine Opiates Screen (NEGATIVE) Ur Oxycodone Screen (NEGATIVE) Urine Methadone Screen (NEGATIVE) Ur Barbiturates Screen (NEGATIVE) U Tricyclic Antidepress (NEGATIVE) Ur Phencyclidine Scrn (NEGATIVE) Ur Amphetamine Screen (NEGATIVE) U Methamphetamines Scrn (NEGATIVE) Urine MDMA Screen (NEGATIVE) U Benzodiazepines Scrn (NEGATIVE) Urine Cocaine Screen (NEGATIVE) U Marijuana (THC) Screen (NEGATIVE) Ethyl Alcohol mg/dL Ketones 03/29/19 03/29/19 03/29/19 Range/Units 20:19 20:50 20:50 WBC (5.0-10.0) 10^3/uL RBC (4.6-6.2) 10^6/uL Hgb (14.0-18.0) g/dL Hct (40.0-54.0) % MCV (80-100) fL MCH (27.0-34.0) pg MCHC (33.0-35.0) g/dL Plt Count (150-450) 10^3/uL Neut % (Auto) (42.2-75.2) % Lymph % (Auto) (20.5-50.1) % [place] % (Auto) (2-8) % Eos % (Auto) (1.0-3.0) % Baso % (Auto) (0.0-1.0) % ABG pH (7.35-7.45) ABG pCO2 (35-45) mmHg ABG pO2 (70-100) mmHg ABG HCO3 (22-26) mmol/L ABG O2 Saturation (95-100) % ABG Base Excess ((-2)-(+3)) mmol/L Alexis Test O2 Delivery Device Sodium (135-145) mmol/L Potassium (3.6-5.0) mmol/L Chloride (101-111) mmol/L Carbon Dioxide (21.0-31.0) mmol/L Anion Gap BUN (7-18) mg/dL Creatinine (0.6-1.3) mg/dL Est Cr Clr Drug Dosing mL/min Estimated GFR (MDRD) BUN/Creatinine Ratio Glucose (74-105) mg/dL POC Glucose 347 H (70-105) mg/dl Lactic Acid (0.5-2.2) mmol/L Calcium (8.4-10.2) mg/dl Magnesium (1.8-2.5) mg/dL Total Bilirubin (0.2-1.0) mg/dL AST (10-42) IU/L ALT (10-60) IU/L Alkaline Phosphatase (42-121) IU/L Troponin I (0.00-0.02) ng/ml Total Protein (6.7-8.2) g/dl Albumin (3.2-5.5) g/dl Globulin Albumin/Globulin Ratio Amylase (28-100) U/L Lipase (22-51) U/L Urine Color Yellow (YELLOW) Urine Appearance Slightly cloudy (CLEAR) Urine pH 5.5 (5.0-9.0) Ur Specific [place] 1.025 (1.005-1.030) Urine Protein Negative (NEGATIVE) Urine Glucose (UA) 500 H (NEGATIVE) Urine Ketones >=160 H (NEGATIVE) Urine Occult Blood Trace-intact H (NEGATIVE) Urine Nitrite Negative (NEGATIVE) Urine Bilirubin Negative (NEGATIVE) Urine Urobilinogen 0.2 (0.2-1.0) mg/dL Ur Leukocyte Esterase Negative (NEGATIVE) Urine RBC 0-5 /HPF Urine WBC 0-5 (0-5/HPF) /HPF Ur Epithelial Cells Few (NOT SEEN) /HPF Urine Bacteria Few (0-FEW/HPF) /HPF Urine Opiates Screen Negative (NEGATIVE) Ur Oxycodone Screen Negative (NEGATIVE) Urine Methadone Screen Negative (NEGATIVE) Ur Barbiturates Screen Negative (NEGATIVE) U Tricyclic Antidepress Negative (NEGATIVE) Ur Phencyclidine Scrn Negative (NEGATIVE) Ur Amphetamine Screen Negative (NEGATIVE) U Methamphetamines Scrn Negative (NEGATIVE) Urine MDMA Screen Negative (NEGATIVE) U Benzodiazepines Scrn Negative (NEGATIVE) Urine Cocaine Screen Negative (NEGATIVE) U Marijuana (THC) Screen Negative (NEGATIVE) Ethyl Alcohol mg/dL Ketones 03/29/19 03/29/19 03/29/19 Range/Units 21:19 22:14 23:12 WBC (5.0-10.0) 10^3/uL RBC (4.6-6.2) 10^6/uL Hgb (14.0-18.0) g/dL Hct (40.0-54.0) % MCV (80-100) fL MCH (27.0-34.0) pg MCHC (33.0-35.0) g/dL Plt Count (150-450) 10^3/uL Neut % (Auto) (42.2-75.2) % Lymph % (Auto) (20.5-50.1) % [place] % (Auto) (2-8) % Eos % (Auto) (1.0-3.0) % Baso % (Auto) (0.0-1.0) % ABG pH (7.35-7.45) ABG pCO2 (35-45) mmHg ABG pO2 (70-100) mmHg ABG HCO3 (22-26) mmol/L ABG O2 Saturation (95-100) % ABG Base Excess ((-2)-(+3)) mmol/L Alexis Test O2 Delivery Device Sodium (135-145) mmol/L Potassium (3.6-5.0) mmol/L Chloride (101-111) mmol/L Carbon Dioxide (21.0-31.0) mmol/L Anion Gap BUN (7-18) mg/dL Creatinine (0.6-1.3) mg/dL Est Cr Clr Drug Dosing mL/min Estimated GFR (MDRD) BUN/Creatinine Ratio Glucose (74-105) mg/dL POC Glucose 263 H 236 H 257 H (70-105) mg/dl Lactic Acid (0.5-2.2) mmol/L Calcium (8.4-10.2) mg/dl Magnesium (1.8-2.5) mg/dL Total Bilirubin (0.2-1.0) mg/dL AST (10-42) IU/L ALT (10-60) IU/L Alkaline Phosphatase (42-121) IU/L Troponin I (0.00-0.02) ng/ml Total Protein (6.7-8.2) g/dl Albumin (3.2-5.5) g/dl Globulin Albumin/Globulin Ratio Amylase (28-100) U/L Lipase (22-51) U/L Urine Color (YELLOW) Urine Appearance (CLEAR) Urine pH (5.0-9.0) Ur Specific [place] (1.005-1.030) Urine Protein (NEGATIVE) Urine Glucose (UA) (NEGATIVE) Urine Ketones (NEGATIVE) Urine Occult Blood (NEGATIVE) Urine Nitrite (NEGATIVE) Urine Bilirubin (NEGATIVE) Urine Urobilinogen (0.2-1.0) mg/dL Ur Leukocyte Esterase (NEGATIVE) Urine RBC /HPF Urine WBC (0-5/HPF) /HPF Ur Epithelial Cells (NOT SEEN) /HPF Urine Bacteria (0-FEW/HPF) /HPF Urine Opiates Screen (NEGATIVE) Ur Oxycodone Screen (NEGATIVE) Urine Methadone Screen (NEGATIVE) Ur Barbiturates Screen (NEGATIVE) U Tricyclic Antidepress (NEGATIVE) Ur Phencyclidine Scrn (NEGATIVE) Ur Amphetamine Screen (NEGATIVE) U Methamphetamines Scrn (NEGATIVE) Urine MDMA Screen (NEGATIVE) U Benzodiazepines Scrn (NEGATIVE) Urine Cocaine Screen (NEGATIVE) U Marijuana (THC) Screen (NEGATIVE) Ethyl Alcohol mg/dL Ketones 03/30/19 03/30/19 03/30/19 Range/Units 00:19 01:15 02:16 WBC (5.0-10.0) 10^3/uL RBC (4.6-6.2) 10^6/uL Hgb (14.0-18.0) g/dL Hct (40.0-54.0) % MCV (80-100) fL MCH (27.0-34.0) pg MCHC (33.0-35.0) g/dL Plt Count (150-450) 10^3/uL Neut % (Auto) (42.2-75.2) % Lymph % (Auto) (20.5-50.1) % [place] % (Auto) (2-8) % Eos % (Auto) (1.0-3.0) % Baso % (Auto) (0.0-1.0) % ABG pH (7.35-7.45) ABG pCO2 (35-45) mmHg ABG pO2 (70-100) mmHg ABG HCO3 (22-26) mmol/L ABG O2 Saturation (95-100) % ABG Base Excess ((-2)-(+3)) mmol/L Alexis Test O2 Delivery Device Sodium (135-145) mmol/L Potassium (3.6-5.0) mmol/L Chloride (101-111) mmol/L Carbon Dioxide (21.0-31.0) mmol/L Anion Gap BUN (7-18) mg/dL Creatinine (0.6-1.3) mg/dL Est Cr Clr Drug Dosing mL/min Estimated GFR (MDRD) BUN/Creatinine Ratio Glucose (74-105) mg/dL POC Glucose 213 H 179 H 154 H (70-105) mg/dl Lactic Acid (0.5-2.2) mmol/L Calcium (8.4-10.2) mg/dl Magnesium (1.8-2.5) mg/dL Total Bilirubin (0.2-1.0) mg/dL AST (10-42) IU/L ALT (10-60) IU/L Alkaline Phosphatase (42-121) IU/L Troponin I (0.00-0.02) ng/ml Total Protein (6.7-8.2) g/dl Albumin (3.2-5.5) g/dl Globulin Albumin/Globulin Ratio Amylase (28-100) U/L Lipase (22-51) U/L Urine Color (YELLOW) Urine Appearance (CLEAR) Urine pH (5.0-9.0) Ur Specific [place] (1.005-1.030) Urine Protein (NEGATIVE) Urine Glucose (UA) (NEGATIVE) Urine Ketones (NEGATIVE) Urine Occult Blood (NEGATIVE) Urine Nitrite (NEGATIVE) Urine Bilirubin (NEGATIVE) Urine Urobilinogen (0.2-1.0) mg/dL Ur Leukocyte Esterase (NEGATIVE) Urine RBC /HPF Urine WBC (0-5/HPF) /HPF Ur Epithelial Cells (NOT SEEN) /HPF Urine Bacteria (0-FEW/HPF) /HPF Urine Opiates Screen (NEGATIVE) Ur Oxycodone Screen (NEGATIVE) Urine Methadone Screen (NEGATIVE) Ur Barbiturates Screen (NEGATIVE) U Tricyclic Antidepress (NEGATIVE) Ur Phencyclidine Scrn (NEGATIVE) Ur Amphetamine Screen (NEGATIVE) U Methamphetamines Scrn (NEGATIVE) Urine MDMA Screen (NEGATIVE) U Benzodiazepines Scrn (NEGATIVE) Urine Cocaine Screen (NEGATIVE) U Marijuana (THC) Screen (NEGATIVE) Ethyl Alcohol mg/dL Ketones 03/30/19 03/30/19 03/30/19 Range/Units 03:17 04:19 05:15 WBC (5.0-10.0) 10^3/uL RBC (4.6-6.2) 10^6/uL Hgb (14.0-18.0) g/dL Hct (40.0-54.0) % MCV (80-100) fL MCH (27.0-34.0) pg MCHC (33.0-35.0) g/dL Plt Count (150-450) 10^3/uL Neut % (Auto) (42.2-75.2) % Lymph % (Auto) (20.5-50.1) % [place] % (Auto) (2-8) % Eos % (Auto) (1.0-3.0) % Baso % (Auto) (0.0-1.0) % ABG pH (7.35-7.45) ABG pCO2 (35-45) mmHg ABG pO2 (70-100) mmHg ABG HCO3 (22-26) mmol/L ABG O2 Saturation (95-100) % ABG Base Excess ((-2)-(+3)) mmol/L Alexis Test O2 Delivery Device Sodium (135-145) mmol/L Potassium (3.6-5.0) mmol/L Chloride (101-111) mmol/L Carbon Dioxide (21.0-31.0) mmol/L Anion Gap BUN (7-18) mg/dL Creatinine (0.6-1.3) mg/dL Est Cr Clr Drug Dosing mL/min Estimated GFR (MDRD) BUN/Creatinine Ratio Glucose (74-105) mg/dL POC Glucose 93 48 L* 119 H (70-105) mg/dl Lactic Acid (0.5-2.2) mmol/L Calcium (8.4-10.2) mg/dl Magnesium (1.8-2.5) mg/dL Total Bilirubin (0.2-1.0) mg/dL AST (10-42) IU/L ALT (10-60) IU/L Alkaline Phosphatase (42-121) IU/L Troponin I (0.00-0.02) ng/ml Total Protein (6.7-8.2) g/dl Albumin (3.2-5.5) g/dl Globulin Albumin/Globulin Ratio Amylase (28-100) U/L Lipase (22-51) U/L Urine Color (YELLOW) Urine Appearance (CLEAR) Urine pH (5.0-9.0) Ur Specific [place] (1.005-1.030) Urine Protein (NEGATIVE) Urine Glucose (UA) (NEGATIVE) Urine Ketones (NEGATIVE) Urine Occult Blood (NEGATIVE) Urine Nitrite (NEGATIVE) Urine Bilirubin (NEGATIVE) Urine Urobilinogen (0.2-1.0) mg/dL Ur Leukocyte Esterase (NEGATIVE) Urine RBC /HPF Urine WBC (0-5/HPF) /HPF Ur Epithelial Cells (NOT SEEN) /HPF Urine Bacteria (0-FEW/HPF) /HPF Urine Opiates Screen (NEGATIVE) Ur Oxycodone Screen (NEGATIVE) Urine Methadone Screen (NEGATIVE) Ur Barbiturates Screen (NEGATIVE) U Tricyclic Antidepress (NEGATIVE) Ur Phencyclidine Scrn (NEGATIVE) Ur Amphetamine Screen (NEGATIVE) U Methamphetamines Scrn (NEGATIVE) Urine MDMA Screen (NEGATIVE) U Benzodiazepines Scrn (NEGATIVE) Urine Cocaine Screen (NEGATIVE) U Marijuana (THC) Screen (NEGATIVE) Ethyl Alcohol mg/dL Ketones 03/30/19 03/30/19 03/30/19 Range/Units 05:45 05:45 07:28 WBC 15.9 H (5.0-10.0) 10^3/uL RBC 4.52 L (4.6-6.2) 10^6/uL Hgb 13.3 L D (14.0-18.0) g/dL Hct 39.1 L (40.0-54.0) % MCV 86.5 (80-100) fL MCH 29.4 (27.0-34.0) pg MCHC 34.0 (33.0-35.0) g/dL Plt Count 250 (150-450) 10^3/uL Neut % (Auto) 73.0 (42.2-75.2) % Lymph % (Auto) 14.4 L (20.5-50.1) % [place] % (Auto) 12.1 H (2-8) % Eos % (Auto) 0.3 L (1.0-3.0) % Baso % (Auto) 0.2 (0.0-1.0) % ABG pH (7.35-7.45) ABG pCO2 (35-45) mmHg ABG pO2 (70-100) mmHg ABG HCO3 (22-26) mmol/L ABG O2 Saturation (95-100) % ABG Base Excess ((-2)-(+3)) mmol/L Alexis Test O2 Delivery Device Sodium 135 (135-145) mmol/L Potassium 3.8 (3.6-5.0) mmol/L Chloride 104 (101-111) mmol/L Carbon Dioxide 21.0 (21.0-31.0) mmol/L Anion Gap 13.8 BUN 18 (7-18) mg/dL Creatinine 0.8 (0.6-1.3) mg/dL Est Cr Clr Drug Dosing 124.92 mL/min Estimated GFR (MDRD) > 60 BUN/Creatinine Ratio Glucose 174 H (74-105) mg/dL POC Glucose 269 H (70-105) mg/dl Lactic Acid (0.5-2.2) mmol/L Calcium 8.4 (8.4-10.2) mg/dl Magnesium (1.8-2.5) mg/dL Total Bilirubin (0.2-1.0) mg/dL AST (10-42) IU/L ALT (10-60) IU/L Alkaline Phosphatase (42-121) IU/L Troponin I (0.00-0.02) ng/ml Total Protein (6.7-8.2) g/dl Albumin (3.2-5.5) g/dl Globulin Albumin/Globulin Ratio Amylase (28-100) U/L Lipase (22-51) U/L Urine Color (YELLOW) Urine Appearance (CLEAR) Urine pH (5.0-9.0) Ur Specific [place] (1.005-1.030) Urine Protein (NEGATIVE) Urine Glucose (UA) (NEGATIVE) Urine Ketones (NEGATIVE) Urine Occult Blood (NEGATIVE) Urine Nitrite (NEGATIVE) Urine Bilirubin (NEGATIVE) Urine Urobilinogen (0.2-1.0) mg/dL Ur Leukocyte Esterase (NEGATIVE) Urine RBC /HPF Urine WBC (0-5/HPF) /HPF Ur Epithelial Cells (NOT SEEN) /HPF Urine Bacteria (0-FEW/HPF) /HPF Urine Opiates Screen (NEGATIVE) Ur Oxycodone Screen (NEGATIVE) Urine Methadone Screen (NEGATIVE) Ur Barbiturates Screen (NEGATIVE) U Tricyclic Antidepress (NEGATIVE) Ur Phencyclidine Scrn (NEGATIVE) Ur Amphetamine Screen (NEGATIVE) U Methamphetamines Scrn (NEGATIVE) Urine MDMA Screen (NEGATIVE) U Benzodiazepines Scrn (NEGATIVE) Urine Cocaine Screen (NEGATIVE) U Marijuana (THC) Screen (NEGATIVE) Ethyl Alcohol mg/dL Ketones Artemio Results Last 24 Hours: Microbiology 03/29/19 17:39 Influenza Type A Antigen Screen - Final Nasal, Unspecified NEGATIVE INFLUENZA A VIRUS AG REFERENCE RANGE: NEGATIVE Influenza Type B Antigen Screen - Final NEGATIVE INFLUENZA B VIRUS AG REFERENCE RANGE: NEGATIVE Med Orders - Current: Current Medications Acetaminophen (Tylenol) 650 mg PO Q4H PRN PRN Reason: Pain (mild 1-3 )/fever Docusate Sodium (Colace) 100 mg PO DAILY PRN PRN Reason: Constipation Enoxaparin Sodium (Lovenox) 40 mg SUBCUT DAILY BUZZ Last Admin: 03/30/19 08:28 Dose: 40 mg Sodium Chloride (Normal Saline) 1,000 mls @ 100 mls/hr IV ASDIRECTED BUZZ Last Admin: 03/30/19 05:44 Dose: 100 mls/hr Ceftriaxone Sodium 2 gm/ (Sodium Chloride) 100 mls @ 200 mls/hr IV Q24H BUZZ Last Admin: 03/29/19 20:39 Dose: 200 mls/hr Influenza Virus Vaccine (Afluria Quad 2018- (3yr Up)) 60 mcg IM .ONCE ONE Stop: 03/29/19 21:11 Insulin Glargine (Lantus) 33 unit SUBCUT BEDTIME BUZZ Insulin Glargine (Lantus) 20 unit SUBCUT ONETIME ONE Stop: 03/30/19 09:04 Insulin Human Lispro (Humalog) 0 unit SUBCUT WITHMEALSANDBED BUZZ; Protocol Last Admin: 03/30/19 08:25 Dose: 6 units Lamotrigine (Lamotrigine) 200 mg PO BID BUZZ Last Admin: 03/30/19 08:25 Dose: 200 mg Ondansetron HCl (Zofran) 4 mg IV Q8H PRN PRN Reason: Nausea/Vomiting Last Admin: 03/30/19 01:44 Dose: 4 mg Sodium Chloride (Saline Flush) 10 ml FLUSH ASDIRECTED PRN PRN Reason: Keep Vein Open Discontinued Medications Enoxaparin Sodium (Lovenox) 30 mg SUBCUT DAILY BUZZ Famotidine (Pepcid) 20 mg IVPUSH ONETIME ONE Stop: 03/29/19 16:26 Last Admin: 03/29/19 16:51 Dose: 20 mg Lactated Ringer's (Ringers, Lactated) 1,000 mls @ 999 mls/hr IV .BOLUS ONE Stop: 03/29/19 17:24 Last Admin: 03/29/19 16:52 Dose: 999 mls/hr Lactated Ringer's (Ringers, Lactated) 1,000 mls @ 999 mls/hr IV .BOLUS ONE Stop: 03/29/19 18:00 Last Admin: 03/29/19 18:00 Dose: 999 mls/hr Insulin Human Regular 100 unit (/ Sodium Chloride) 100 mls @ 6.29 mls/hr IV TITRATE BUZZ; Protocol Last Titration: 03/29/19 23:15 Dose: Infused Insulin Human Regular 100 unit (/ Sodium Chloride) 100 mls @ 6.29 mls/hr IV TITRATE BUZZ; Protocol Last Titration: 03/30/19 03:17 Dose: 0 units/kg/hr, 0 mls/hr Insulin Human Regular (Humulin R) 6 unit IV ONETIME ONE Stop: 03/29/19 17:02 Last Admin: 03/29/19 17:27 Dose: 6 units Ondansetron HCl (Zofran) 4 mg IV ONETIME ONE Stop: 03/29/19 16:26 Last Admin: 03/29/19 16:51 Dose: 4 mg Ondansetron HCl (Zofran) 4 mg IV ONETIME ONE Stop: 03/29/19 17:02 Last Admin: 03/29/19 19:46 Dose: Not Given Sodium Chloride (Saline Flush) 10 ml FLUSH ASDIRECTED PRN PRN Reason: Keep Vein Open Last Admin: 03/30/19 01:44 Dose: 10 ml - Exam Quality Assessment: DVT Prophylaxis General: Alert, Oriented HEENT: Pupils Equal, Pupils Reactive, EOMI, Mucous Membr. Moist/[place] Neck: Supple Lungs: Clear to Auscultation, Normal Respiratory Effort Cardiovascular: Regular Rate, Regular Rhythm GI/Abdominal Exam: Normal Bowel Sounds, Soft, Non-Tender, No Organomegaly, No Distention, No Abnormal Bruit, No Mass, Pelvis Stable (Male) Exam: No Hernia, Normal Inspection, Normal Prostate, Circumcised Back Exam: Normal Inspection, Full Range of Motion Extremities: Normal Inspection, Normal Range of Motion, Non-Tender, No Pedal Edema, Normal Capillary Refill Skin: Warm, Dry, Intact Wound/Incisions: Healing Well Neurological: No New Focal Deficit Psy/Mental Status: Alert, Normal Affect, Normal Mood - Problem List Review Problem List Initiated/Reviewed/Updated: Yes - My Orders Last 24 Hours: My Active Orders 03/30/19 08:56 LACTIC ACID [CHEM] Routine 03/30/19 09:03 Insulin Glarg,Human.Rec.Analog [LantUS] 20 unit SUBCUT ONETIME ONE - Plan Plan:: This is a 24 y/O M with history of IDDM type I , came to ER with chest pain and vomiting at home. His blood sugar was 337 with bicarbonate of 15, he was admitted for likely DKA and stated on Insulin drip. 1.Diabetic Ketosis -Resolved -Continue SSI plus Lantus -Will continue NS at 100 ml/hr 2.Type diabetes with hyperglycemia -Blood glucose this AM was 269 -Continue with SSI plus Lantus -Accucheks QID -Hypoglycemic protocol -A1c 3.High anion Gap Metabolic Acidosis: This is secondary to DKD -Resolved 4.DVT prophylaxis -Enoxaparin 5.Leukocytosis etiology not clear -Started on Ceftriaxone -Follow cxs -Daily cbc Code Status: Full Code
[2019-03-30] MEDS ORDERED: Insulin Glarg,Human.Rec.Analog 100 UNIT/ML ML SUBCUT ONE (10:00)
[2019-03-30] MEDS: Sodium Chloride 0.9% 10 ML Syringe FLUSH PRN ×2 (20:02→21:34)
[2019-03-30] MEDS: cefTRIAXone 2 GM in Sodium Chloride 0.9% 100 ML IV SCH (20:02)
[2019-03-31] MEDS: Sodium Chloride 0.9% 1,000 ML IV SCH (02:05)
[2019-03-31 07:01] LABS: ANION GAP 11.6; CHLORIDE,CL 103 mmol/L (101-111); SODIUM,NA 138 mmol/L (135-145)
[2019-03-31] MEDS: Enoxaparin 40 MG/0.4 ML Syringe SUBCUT SCH (08:14)
[2019-03-31] MEDS: lamoTRIgine 100 MG Tab PO SCH (08:14)
[2019-03-31] MEDS: Insulin Lispro 100 Units/ML 3 ML Vial SUBCUT SCH ×2 (08:15→12:23)
--- NOTE | 2019-03-31 09:58 | PCM.DCSUM1 ---
Discharge Summary - Hospital Course Free Text/Narrative:: This is a 24 Y/O M with PMH of Diabetes Type I on Insulin who presented with chest pain, nausea and vomiting. He was found to be in DKA and subsequently admitted. He was managed with DKA protocol with improvement. His symptoms have resolved. No n/v or abdominal pain. Patient will be discharged home to follow up with PCP. Patient was strongly educated on the importance of medication compliance an was also advised on keeping follow up appointments and checking his glucose level. He verbalized understanding. Diagnosis: Stroke: No - Discharge Data Discharge Date: 03/31/19 Discharge Disposition: Home, Self-Care 01 Condition: Stable - Referral to Home Health Primary Care Physician: Chapo Buchanan MD - Patient Instructions Diet: Diabetic Diet Activity: As Tolerated Driving: May Drive Today Showering/Bathing: May Shower Notify Provider of: Fever, Increased Pain, Swelling and Redness, Drainage, Nausea and/or Vomiting - Discharge Plan *PRESCRIPTION DRUG MONITORING PROGRAM REVIEWED*: No *COPY OF PRESCRIPTION DRUG MONITORING REPORT IN PATIENT CHERRI: No Home Medications: Home Meds Insulin Aspart [Novolog] 3 units SUBCUT ASDIRECTED 10/18/13 [History] Insulin Glarg,Human.Rec.Analog [Lantus Solostar] 33 unit SUBCUT BEDTIME [History] lamoTRIgine 200 mg PO BID 09/20/18 [History] Oxygen Therapy Mode: Room Air Forms: ED Department Discharge Referrals: PCP,Unobtain [Ordering Only Provider] - - Discharge Summary/Plan Comment DC Time >30 min.: Yes - General Info Date of Service: 03/31/19 Admission Dx/Problem (Free Text: Admission Diagnosis/Problem Admission Diagnosis/Problem Diabetic ketoacidosis without coma Subjective Update: This is a 24 Y/O M with PMH of Diabetes Type I on Insulin who presented with chest pain, nausea and vomiting. He was found to be in DKA and subsequently admitted. His anioin gap is closed and he is been bridged with Lantus. This morning he was seen and examined with mother by bedside. Patient doing well. He denies abdominal pain, fever, chills. No chest pain, SOB. Labs reviewed. Functional Status: Reports: Pain Controlled - Review of Systems General: Reports: No Symptoms HEENT: Reports: No Symptoms Pulmonary: Reports: No Symptoms Cardiovascular: Reports: No Symptoms Gastrointestinal: Reports: No Symptoms Genitourinary: Reports: No Symptoms Musculoskeletal: Reports: No Symptoms Skin: Reports: No Symptoms Neurological: Reports: No Symptoms Psychiatric: Reports: No Symptoms - Patient Data Vitals - Most Recent: Last Vital Signs Temp 99.2 F 03/31/19 07:38 Pulse 66 03/31/19 07:38 Resp 16 03/31/19 07:38 BP 111/65 03/31/19 07:38 Pulse Ox 99 03/31/19 07:38 Weight - Most Recent: 138 lb 12.8 oz I&O - Last 24 hours: Intake & Output 03/30/19 03/31/19 03/31/19 22:59 06:59 14:59 Intake Total 1011 2773 Output Total 400 Balance 611 2773 Lab Results - Last 24 hrs: Laboratory Results - last 24 hr 03/30/19 03/30/19 03/30/19 Range/Units 10:00 11:48 17:02 WBC (5.0-10.0) 10^3/uL RBC (4.6-6.2) 10^6/uL Hgb (14.0-18.0) g/dL Hct (40.0-54.0) % MCV (80-100) fL MCH (27.0-34.0) pg MCHC (33.0-35.0) g/dL Plt Count (150-450) 10^3/uL Sodium (135-145) mmol/L Potassium (3.6-5.0) mmol/L Chloride (101-111) mmol/L Carbon Dioxide (21.0-31.0) mmol/L Anion Gap BUN (7-18) mg/dL Creatinine (0.6-1.3) mg/dL Est Cr Clr Drug Dosing mL/min Estimated GFR (MDRD) Glucose (74-105) mg/dL POC Glucose 285 H 312 H (70-105) mg/dl Lactic Acid 0.8 (0.5-2.2) mmol/L Calcium (8.4-10.2) mg/dl 03/30/19 03/31/19 03/31/19 Range/Units 21:29 05:55 05:55 WBC 7.7 (5.0-10.0) 10^3/uL RBC 4.43 L (4.6-6.2) 10^6/uL Hgb 13.1 L (14.0-18.0) g/dL Hct 38.5 L (40.0-54.0) % MCV 86.9 (80-100) fL MCH 29.6 (27.0-34.0) pg MCHC 34.0 (33.0-35.0) g/dL Plt Count 204 (150-450) 10^3/uL Sodium 138 (135-145) mmol/L Potassium 3.6 (3.6-5.0) mmol/L Chloride 103 (101-111) mmol/L Carbon Dioxide 27.0 (21.0-31.0) mmol/L Anion Gap 11.6 BUN 11 (7-18) mg/dL Creatinine 0.7 (0.6-1.3) mg/dL Est Cr Clr Drug Dosing 142.77 mL/min Estimated GFR (MDRD) > 60 Glucose 181 H (74-105) mg/dL POC Glucose 314 H (70-105) mg/dl Lactic Acid (0.5-2.2) mmol/L Calcium 8.0 L (8.4-10.2) mg/dl 03/31/19 Range/Units 07:24 WBC (5.0-10.0) 10^3/uL RBC (4.6-6.2) 10^6/uL Hgb (14.0-18.0) g/dL Hct (40.0-54.0) % MCV (80-100) fL MCH (27.0-34.0) pg MCHC (33.0-35.0) g/dL Plt Count (150-450) 10^3/uL Sodium (135-145) mmol/L Potassium (3.6-5.0) mmol/L Chloride (101-111) mmol/L Carbon Dioxide (21.0-31.0) mmol/L Anion Gap BUN (7-18) mg/dL Creatinine (0.6-1.3) mg/dL Est Cr Clr Drug Dosing mL/min Estimated GFR (MDRD) Glucose (74-105) mg/dL POC Glucose 161 H (70-105) mg/dl Lactic Acid (0.5-2.2) mmol/L Calcium (8.4-10.2) mg/dl LAI Results - Last 24 hrs: Microbiology 03/29/19 16:34 Aerobic Blood Culture - Preliminary Blood - Venous - Lab Draw NO GROWTH AFTER 1 DAY Anaerobic Blood Culture - Preliminary NO GROWTH AFTER 1 DAY 03/29/19 16:32 Aerobic Blood Culture - Preliminary Blood - Venous NO GROWTH AFTER 1 DAY Anaerobic Blood Culture - Preliminary NO GROWTH AFTER 1 DAY Med Orders - Current: Current Medications Acetaminophen (Tylenol) 650 mg PO Q4H PRN PRN Reason: Pain (mild 1-3 )/fever Docusate Sodium (Colace) 100 mg PO DAILY PRN PRN Reason: Constipation Enoxaparin Sodium (Lovenox) 40 mg SUBCUT DAILY [facility] Last Admin: 03/31/19 08:14 Dose: 40 mg Sodium Chloride (Normal Saline) 1,000 mls @ 100 mls/hr IV ASDIRECTED [facility] Last Admin: 03/31/19 02:05 Dose: 100 mls/hr Ceftriaxone Sodium 2 gm/ (Sodium Chloride) 100 mls @ 200 mls/hr IV Q24H [facility] Last Infusion: 03/30/19 21:32 Dose: Infused Influenza Virus Vaccine (Afluria Quad 2018- (3yr Up)) 60 mcg IM .ONCE ONE Stop: 03/29/19 21:11 Insulin Glargine (Lantus) 33 unit SUBCUT BEDTIME [facility] Last Admin: 03/30/19 21:46 Dose: 33 units Insulin Human Lispro (Humalog) 0 unit SUBCUT WITHMEALSANDBED [facility]; Protocol Last Admin: 03/31/19 08:15 Dose: 2 units Lamotrigine (Lamotrigine) 200 mg PO BID [facility] Last Admin: 03/31/19 08:14 Dose: 200 mg Ondansetron HCl (Zofran) 4 mg IV Q8H PRN PRN Reason: Nausea/Vomiting Last Admin: 03/30/19 01:44 Dose: 4 mg Sodium Chloride (Saline Flush) 10 ml FLUSH ASDIRECTED PRN PRN Reason: Keep Vein Open Last Admin: 03/30/19 21:34 Dose: 10 ml Discontinued Medications Enoxaparin Sodium (Lovenox) 30 mg SUBCUT DAILY [facility] Famotidine (Pepcid) 20 mg IVPUSH ONETIME ONE Stop: 03/29/19 16:26 Last Admin: 03/29/19 16:51 Dose: 20 mg Lactated Ringer's (Ringers, Lactated) 1,000 mls @ 999 mls/hr IV .BOLUS ONE Stop: 03/29/19 17:24 Last Admin: 03/29/19 16:52 Dose: 999 mls/hr Lactated Ringer's (Ringers, Lactated) 1,000 mls @ 999 mls/hr IV .BOLUS ONE Stop: 03/29/19 18:00 Last Admin: 03/29/19 18:00 Dose: 999 mls/hr Insulin Human Regular 100 unit (/ Sodium Chloride) 100 mls @ 6.29 mls/hr IV TITRATE BUZZ; Protocol Last Titration: 03/29/19 23:15 Dose: Infused Insulin Human Regular 100 unit (/ Sodium Chloride) 100 mls @ 6.29 mls/hr IV TITRATE BUZZ; Protocol Last Titration: 03/30/19 03:17 Dose: 0 units/kg/hr, 0 mls/hr Insulin Glargine (Lantus) 20 unit SUBCUT ONETIME ONE Stop: 03/30/19 10:01 Last Admin: 03/30/19 10:18 Dose: 20 units Insulin Human Regular (Humulin R) 6 unit IV ONETIME ONE Stop: 03/29/19 17:02 Last Admin: 03/29/19 17:27 Dose: 6 units Ondansetron HCl (Zofran) 4 mg IV ONETIME ONE Stop: 03/29/19 16:26 Last Admin: 03/29/19 16:51 Dose: 4 mg Ondansetron HCl (Zofran) 4 mg IV ONETIME ONE Stop: 03/29/19 17:02 Last Admin: 03/29/19 19:46 Dose: Not Given Sodium Chloride (Saline Flush) 10 ml FLUSH ASDIRECTED PRN PRN Reason: Keep Vein Open Last Admin: 03/30/19 01:44 Dose: 10 ml - Exam Quality Assessment: Reports: DVT Prophylaxis General: Reports: Alert, Oriented HEENT: Reports: Pupils Equal, Pupils Reactive, EOMI, Mucous Membr. Moist/[place] Neck: Reports: Supple Lungs: Reports: Clear to Auscultation, Normal Respiratory Effort Cardiovascular: Reports: Regular Rate, Regular Rhythm GI/Abdominal Exam: Normal Bowel Sounds, Soft, Non-Tender, No Organomegaly, No Distention, No Abnormal Bruit, No Mass, Pelvis Stable (Male) Exam: No Hernia, Normal Inspection, Normal Prostate, Circumcised Rectal (Males) Exam: Normal Exam, Normal Rectal Tone, Prostate Normal Back Exam: Reports: Normal Inspection, Full Range of Motion Extremities: Normal Inspection, Normal Range of Motion, Non-Tender, No Pedal Edema, Normal Capillary Refill Skin: Reports: Warm, Dry, Intact Wound/Incisions: Reports: Healing Well Neurological: Reports: No New Focal Deficit Psy/Mental Status: Reports: Alert, Normal Affect, Normal Mood
[2019-03-31 12:04] VITALS: BP 121/58; PULSE 83
== END 2019-03-31 13:10 | disposition home or self-care (01) | DRG 420 ==
LOC: DL.ED 16:03 → DL.MS 18:53
PROVIDERS: ADMIT Internal Medicine Nephrology; ATTEND Student in an Organized Health Care Education/Training Program
DX: E10.10 Type 1 diabetes mellitus with ketoacidosis without coma (principal); E10.65 Type 1 diabetes mellitus with hyperglycemia; E86.0 Dehydration; D72.829 Elevated white blood cell count, unspecified; Z23 Encounter for immunization
CPT/HCPCS: 36415; 36600; 71045; 80048; 80053; 80305-QW; 81001; 82009; 82150; 82803; 82962; 83605; 83690; 83735; 84484; 85025; 85027; 87040; 87804; 90686; 93005; 96361; 96365; 96375; 99285-25; A9270-GY; G0008; G0480; J0696; J1650; J1815; J1815-GY; J2405; J3490; J7030; J7050; J7120

== ENCOUNTER 2019-06-04 10:37 | Emergency (ER) | payer BC ==
[2019-06-04] MEDS ORDERED: Ondansetron 4 MG/2 ML SDV IVPUSH ONE (10:42)
[2019-06-04] MEDS ORDERED: Sodium Chloride 0.9% 1,000 ML IV ONE ×2 (10:42→11:38)
--- NOTE | 2019-06-04 11:02 | EDM.PDOC ---
ED HPI GENERAL MEDICAL PROBLEM - General Stated Complaint: THROWING UP/DIZZY SPELLS Time Seen by Provider: 06/04/19 10:45 Source of Information: Reports: Patient History Limitations: Reports: No Limitations - History of Present Illness INITIAL COMMENTS - FREE TEXT/NARRATIVE: ED with c/o nausea vomiting since yesterday. IDDM, Emesis x 3 today. No fever, chills or body aches. Lower Back Pain Score (Numeric/FACES): 6 - Related Data Allergies Allergy/AdvReac Type Severity Reaction Status Date / Time No Known Allergies Allergy Verified 06/04/19 10:46 Home Meds: Home Meds Insulin Aspart [Novolog] 20 units SUBCUT ASDIRECTED 10/18/13 [History] Insulin Glarg,Human.Rec.Analog [Lantus Solostar] 33 unit SUBCUT BEDTIME [History] lamoTRIgine 200 mg PO BID 09/20/18 [History] Past Medical History HEENT History: Reports: Impaired Vision, Other (See Below) Other HEENT History: wears glasses Cardiovascular History: Reports: None Respiratory History: Reports: None Gastrointestinal History: Reports: None Genitourinary History: Reports: Acute Renal Failure Musculoskeletal History: Reports: None Neurological History: Reports: Seizure Psychiatric History: Reports: None Endocrine/Metabolic History: Reports: Diabetes, Type I (with Hx of DKA), Other ( See Below) (DKA) Other Endocrine/Metabolic History: on insulin at home Hematologic History: Reports: None Immunologic History: Reports: None Oncologic (Cancer) History: Reports: None Dermatologic History: Reports: None - Infectious Disease History Infectious Disease History: Reports: None - Past Surgical History Head Surgeries/Procedures: Reports: None Social & Family History - Family History Family Medical History: Noncontributory Endocrine/Metabolic: Reports: IDDM - Caffeine Use Caffeine Use: Reports: Soda - Living Situation & Occupation Living situation: Reports: Single, with Family Occupation: Employed ED ROS GENERAL - Review of Systems Review Of Systems: Comprehensive ROS is negative, except as noted in HPI. ED EXAM, GENERAL - Physical Exam Exam: See Below Exam Limited By: No Limitations General Appearance: Alert, No Apparent Distress Eye Exam: Bilateral Eye: PERRL Ears: Normal External Exam, Normal TMs Nose: Normal Inspection Throat/Mouth: Normal Inspection Head: Atraumatic, Normocephalic Respiratory/Chest: No Respiratory Distress, Lungs Clear, Normal Breath Sounds, Chest Non-Tender Cardiovascular: Normal Peripheral Pulses, Regular Rate, Rhythm GI/Abdominal: Normal Bowel Sounds, Soft Back Exam: Full Range of Motion Extremities: Normal Inspection, Normal Range of Motion Neurological: Alert, Oriented Skin Exam: Warm, Dry, Intact, Pallor Course - Vital Signs Last Recorded V/S: Last Vital Signs Temp 97.8 F 06/04/19 12:15 Pulse 90 06/04/19 12:15 Resp 16 06/04/19 12:15 BP 105/57 L 06/04/19 12:15 Pulse Ox 100 06/04/19 12:15 - Orders/Labs/Meds Orders: Active Orders 24 hr Category Date Time Status Blood Glucose Check, Bedside [] ONETIME Care 06/04/19 10:42 Active Glucose [Blood Glucose Check, Bedside] [] ONETIME Care 06/04/19 12:15 Active CULTURE BLOOD [BC] Stat Lab 06/04/19 10:56 Received INFLUENZA A+B AG SCREEN [RM] Stat Lab 06/04/19 11:03 Received Labs: Laboratory Tests 06/04/19 06/04/19 06/04/19 Range/Units 10:56 10:56 10:56 WBC 8.3 (5.0-10.0) 10^3/uL RBC 5.30 (4.6-6.2) 10^6/uL Hgb 16.2 D (14.0-18.0) g/dL Hct 47.3 (40.0-54.0) % MCV 89.2 (80-100) fL MCH 30.6 (27.0-34.0) pg MCHC 34.2 (33.0-35.0) g/dL Plt Count 250 (150-450) 10^3/uL Neut % (Auto) 68.6 (42.2-75.2) % Lymph % (Auto) 22.7 (20.5-50.1) % Collier % (Auto) 7.6 (2-8) % Eos % (Auto) 0.6 L (1.0-3.0) % Baso % (Auto) 0.5 (0.0-1.0) % ABG pH (7.35-7.45) ABG pCO2 (35-45) mmHg ABG pO2 (70-100) mmHg ABG HCO3 (22-26) mmol/L ABG O2 Saturation (95-100) % ABG Base Excess ((-2)-(+3)) mmol/L Alexis Test O2 Delivery Device Sodium 138 (135-145) mmol/L Potassium 4.3 (3.6-5.0) mmol/L Chloride 98 L (101-111) mmol/L Carbon Dioxide 26.0 (21.0-31.0) mmol/L Anion Gap 18.3 BUN 12 (7-18) mg/dL Creatinine 1.0 (0.6-1.3) mg/dL Est Cr Clr Drug Dosing 96.20 mL/min Estimated GFR (MDRD) > 60 BUN/Creatinine Ratio 12.00 Glucose 280 H (74-105) mg/dL Lactic Acid 2.7 H* (0.5-2.0) mmol/L Calcium 9.4 (8.4-10.2) mg/dl Total Bilirubin 1.4 H (0.2-1.0) mg/dL AST 39 (10-42) IU/L ALT 33 (10-60) IU/L Alkaline Phosphatase 112 (42-121) IU/L Total Protein 7.5 (6.7-8.2) g/dl Albumin 4.6 (3.2-5.5) g/dl Globulin 2.9 Albumin/Globulin Ratio 1.59 Amylase 51 (28-100) U/L Lipase 22 (22-51) U/L Urine Color (YELLOW) Urine Appearance (CLEAR) Urine pH (5.0-9.0) Ur Specific Tad (1.005-1.030) Urine Protein (NEGATIVE) Urine Glucose (UA) (NEGATIVE) Urine Ketones (NEGATIVE) Urine Occult Blood (NEGATIVE) Urine Nitrite (NEGATIVE) Urine Bilirubin (NEGATIVE) Urine Urobilinogen (0.2-1.0) mg/dL Ur Leukocyte Esterase (NEGATIVE) Urine Opiates Screen (NEGATIVE) Ur Oxycodone Screen (NEGATIVE) Urine Methadone Screen (NEGATIVE) Ur Barbiturates Screen (NEGATIVE) U Tricyclic Antidepress (NEGATIVE) Ur Phencyclidine Scrn (NEGATIVE) Ur Amphetamine Screen (NEGATIVE) U Methamphetamines Scrn (NEGATIVE) Urine MDMA Screen (NEGATIVE) U Benzodiazepines Scrn (NEGATIVE) Urine Cocaine Screen (NEGATIVE) U Marijuana (THC) Screen (NEGATIVE) Ketones Negative 06/04/19 06/04/19 06/04/19 Range/Units 11:52 12:08 12:08 WBC (5.0-10.0) 10^3/uL RBC (4.6-6.2) 10^6/uL Hgb (14.0-18.0) g/dL Hct (40.0-54.0) % MCV (80-100) fL MCH (27.0-34.0) pg MCHC (33.0-35.0) g/dL Plt Count (150-450) 10^3/uL Neut % (Auto) (42.2-75.2) % Lymph % (Auto) (20.5-50.1) % Collier % (Auto) (2-8) % Eos % (Auto) (1.0-3.0) % Baso % (Auto) (0.0-1.0) % ABG pH 7.31 L (7.35-7.45) ABG pCO2 52 H (35-45) mmHg ABG pO2 34 L* (70-100) mmHg ABG HCO3 25.4 (22-26) mmol/L ABG O2 Saturation 50 L (95-100) % ABG Base Excess -1 ((-2)-(+3)) mmol/L Alexis Test Performed O2 Delivery Device Room air Sodium (135-145) mmol/L Potassium (3.6-5.0) mmol/L Chloride (101-111) mmol/L Carbon Dioxide (21.0-31.0) mmol/L Anion Gap BUN (7-18) mg/dL Creatinine (0.6-1.3) mg/dL Est Cr Clr Drug Dosing mL/min Estimated GFR (MDRD) BUN/Creatinine Ratio Glucose (74-105) mg/dL Lactic Acid (0.5-2.0) mmol/L Calcium (8.4-10.2) mg/dl Total Bilirubin (0.2-1.0) mg/dL AST (10-42) IU/L ALT (10-60) IU/L Alkaline Phosphatase (42-121) IU/L Total Protein (6.7-8.2) g/dl Albumin (3.2-5.5) g/dl Globulin Albumin/Globulin Ratio Amylase (28-100) U/L Lipase (22-51) U/L Urine Color Dark yellow (YELLOW) Urine Appearance Clear (CLEAR) Urine pH 5.5 (5.0-9.0) Ur Specific Tad >= 1.030 (1.005-1.030) Urine Protein Negative (NEGATIVE) Urine Glucose (UA) 500 H (NEGATIVE) Urine Ketones 40 H (NEGATIVE) Urine Occult Blood Negative (NEGATIVE) Urine Nitrite Negative (NEGATIVE) Urine Bilirubin Negative (NEGATIVE) Urine Urobilinogen 0.2 (0.2-1.0) mg/dL Ur Leukocyte Esterase Negative (NEGATIVE) Urine Opiates Screen Negative (NEGATIVE) Ur Oxycodone Screen Negative (NEGATIVE) Urine Methadone Screen Negative (NEGATIVE) Ur Barbiturates Screen Negative (NEGATIVE) U Tricyclic Antidepress Negative (NEGATIVE) Ur Phencyclidine Scrn Negative (NEGATIVE) Ur Amphetamine Screen Negative (NEGATIVE) U Methamphetamines Scrn Negative (NEGATIVE) Urine MDMA Screen Negative (NEGATIVE) U Benzodiazepines Scrn Negative (NEGATIVE) Urine Cocaine Screen Negative (NEGATIVE) U Marijuana (THC) Screen Negative (NEGATIVE) Ketones Meds: Medications Discontinued Medications Generic Name Dose Route Start Last Admin Trade Name Freq PRN Reason Stop Dose Admin Sodium Chloride 1,000 mls @ 999 mls/hr 06/04/19 10:42 06/04/19 10:56 Normal Saline IV 06/04/19 11:42 999 mls/hr .BOLUS ONE Administration Sodium Chloride 1,000 mls @ 999 mls/hr 06/04/19 11:38 06/04/19 11:42 Normal Saline IV 06/04/19 12:38 999 mls/hr .BOLUS ONE Administration Insulin Human Regular 5 unit 06/04/19 11:39 06/04/19 11:43 Humulin R IV 06/04/19 11:40 5 units ONETIME ONE Administration Ketorolac Tromethamine 30 mg 06/04/19 13:19 06/04/19 13:25 Toradol IVPUSH 06/04/19 13:20 30 mg ONETIME ONE Administration Ondansetron HCl 4 mg 06/04/19 10:42 06/04/19 10:54 Zofran IVPUSH 06/04/19 10:43 4 mg ONETIME ONE Administration Departure - Departure Time of Disposition: 13:49 Disposition: Home, Self-Care 01 Condition: Good Clinical Impression: Seizure disorder Vomiting Qualifiers: Vomiting type: unspecified Vomiting Intractability: non-intractable Nausea presence: with nausea Qualified Code(s): R11.2 - Nausea with vomiting, unspecified Diabetes mellitus type 1 Qualifiers: Diabetes mellitus complication status: without complication Qualified Code(s): E10.9 - Type 1 diabetes mellitus without complications - Discharge Information *PRESCRIPTION DRUG MONITORING PROGRAM REVIEWED*: No *COPY OF PRESCRIPTION DRUG MONITORING REPORT IN PATIENT CHERRI: No Instructions: Dehydration, Adult, [id number] Additional Instructions: liquid diet x 2 hours then advance as tolerated, insulin per home routing zofran ODT 4 mg one every 6 hours as needed for nausea vomiting Urgent follow up if not able to keep liquids down or blood sugars in poor control. Sepsis Event Note - Focused Exam Vital Signs: Vital Signs Temp Pulse Resp BP Pulse Ox 06/04/19 12:15 97.8 F 90 16 105/57 L 100 06/04/19 10:42 97.7 F 103 H 16 137/73 96 Date Exam was Performed: 06/04/19 Time Exam was Performed: 13:48 - My Orders Last 24 Hours: My Active Orders 06/04/19 10:42 Blood Glucose Check, Bedside [RC] ONETIME 06/04/19 10:56 CULTURE BLOOD [BC] Stat 06/04/19 11:03 INFLUENZA A+B AG SCREEN [RM] Stat 06/04/19 12:15 Glucose [Blood Glucose Check, Bedside] [RC] ONETIME - Assessment/Plan Last 24 Hours: My Active Orders 06/04/19 10:42 Blood Glucose Check, Bedside [RC] ONETIME 06/04/19 10:56 CULTURE BLOOD [BC] Stat 06/04/19 11:03 INFLUENZA A+B AG SCREEN [RM] Stat 06/04/19 12:15 Glucose [Blood Glucose Check, Bedside] [RC] ONETIME
[2019-06-04 11:24] LABS: ANION GAP 18.3; CHLORIDE,CL 98 mmol/L (101-111); SODIUM,NA 138 mmol/L (135-145)
[2019-06-04] MEDS ORDERED: Insulin Regular, Human 100 Units/ML 3 ML Vial IV ONE (11:39)
[2019-06-04 11:54] LABS: BASE EXCESS ARTERIAL -1 mmol/L ((-2)-(+3)); BICARBONATE,ARTERIAL 25.4 mmol/L (22-26); O2 DELIVERY DEVICE ROOM AIR; O2 SATURATION ARTERIAL 50 % (95-100); PCO2 ARTERIAL 52 mmHg (35-45)
[2019-06-04 11:55] LABS: ALLEN TEST PERFORMED; PO2 ARTERIAL 34 mmHg (70-100)
[2019-06-04 12:16] VITALS: BP 105/57; PULSE 90
[2019-06-04] MEDS ORDERED: Ketorolac 30 MG/ML SDV IVPUSH ONE (13:19)
== END 2019-06-04 14:00 | disposition home or self-care (01) ==
LOC: DL.ED 10:37
DX: G40.909 Epilepsy, unspecified, not intractable, without status epilepticus (principal); R11.2 Nausea with vomiting, unspecified; E10.9 Type 1 diabetes mellitus without complications
CPT/HCPCS: 36415; 36600; 80053; 80305; 81003; 82009; 82150; 82803; 82962; 83605; 83690; 85025; 87040; 87804; 96361; 96374; 96375; 99284; J1815; J1885; J2405; J7030

== ENCOUNTER 2019-12-23 15:08 | Emergency (ER) | payer BC, OTHER ==
[2019-12-23 14:23] LABS: ANION GAP 11.9 mEq/L (7-13); CHLORIDE,CL 98 mmol/L (98-107); SODIUM,NA 134 mmol/L (136-145)
--- NOTE | 2019-12-23 14:23 | EDM.PDOC ---
ED HPI GENERAL MEDICAL PROBLEM - General Time Seen by Provider: 12/23/19 14:02 Source of Information: Reports: Patient, EMS History Limitations: Reports: No Limitations - History of Present Illness INITIAL COMMENTS - FREE TEXT/NARRATIVE: This 24 yo male patient reports to the ED with LRAS due to a brief episode of shortness of breath and shaking. The patient reports he was working at the [employer] when the episode started. The patient reports his shortness of breath lasted less than 10 seconds. The patient then went to the back room when his arms started shaking. The patient also reports some numbness in his hands an d feet. Onset: Today Duration: Resolved Prior to Arrival Location: Reports: Other Quality: Reports: Other Severity: Mild Improves with: Reports: None Worsens with: Reports: None Context: Reports: Other Associated Symptoms: Reports: No Other Symptoms - Related Data Allergies Allergy/AdvReac Type Severity Reaction Status Date / Time No Known Allergies Allergy Verified 12/23/19 13:33 Home Meds: Home Meds Insulin Aspart [Novolog] 20 units SUBCUT ASDIRECTED 10/18/13 [History] Insulin Glarg,Human.Rec.Analog [Lantus Solostar] 33 unit SUBCUT BEDTIME 10/18/13 [History] lamoTRIgine 200 mg PO BID 09/20/18 [History] Past Medical History HEENT History: Reports: Impaired Vision, Other (See Below) Other HEENT History: wears glasses Cardiovascular History: Reports: None Respiratory History: Reports: None Gastrointestinal History: Reports: None Genitourinary History: Reports: Acute Renal Failure Musculoskeletal History: Reports: None Neurological History: Reports: Seizure Psychiatric History: Reports: None Endocrine/Metabolic History: Reports: Diabetes, Type I (with Hx of DKA), Other (See Below) (DKA) Other Endocrine/Metabolic History: on insulin at home Hematologic History: Reports: None Immunologic History: Reports: None Oncologic (Cancer) History: Reports: None Dermatologic History: Reports: None - Infectious Disease History Infectious Disease History: Reports: None - Past Surgical History Head Surgeries/Procedures: Reports: None Social & Family History - Family History Family Medical History: Noncontributory Endocrine/Metabolic: Reports: IDDM - Caffeine Use Caffeine Use: Reports: Soda - Living Situation & Occupation Living situation: Reports: Single, with Family Occupation: Employed ED ROS GENERAL - Review of Systems Review Of Systems: Comprehensive ROS is negative, except as noted in HPI. ED EXAM, GENERAL - Physical Exam Exam: See Below Exam Limited By: No Limitations General Appearance: Alert, WD/WN, No Apparent Distress Eye Exam: Bilateral Eye: EOMI, Normal Inspection, PERRL Ears: Normal External Exam, Normal Canal, Hearing Grossly Normal, Normal TMs Nose: Normal Inspection, Normal Mucosa, No Blood Throat/Mouth: Normal Inspection, Normal Lips, Normal Teeth, Normal Gums, Normal Oropharynx, Normal Voice, No Airway Compromise Head: Atraumatic, Normocephalic Neck: Normal Inspection, Supple, Non-Tender, Full Range of Motion Respiratory/Chest: No Respiratory Distress, Lungs Clear, Normal Breath Sounds, No Accessory Muscle Use, Chest Non-Tender Cardiovascular: Normal Peripheral Pulses, Regular Rate, Rhythm, No Edema, No Gallop, No JVD, No Murmur, No Rub GI/Abdominal: Normal Bowel Sounds, Soft, Non-Tender, No Organomegaly, No Distention, No Abnormal Bruit, No Mass (Male) Exam: Deferred Rectal (Males) Exam: Deferred Back Exam: Normal Inspection, Full Range of Motion, NT Extremities: Normal Inspection, Normal Range of Motion, Non-Tender, Normal Capillary Refill, No Pedal Edema Neurological: Alert, Oriented, CN II-XII Intact, Normal Cognition, Normal Gait, Normal Reflexes, No Motor/Sensory Deficits Psychiatric: Normal Affect, Normal Mood Skin Exam: Warm, Dry, Intact, Normal Color, No Rash Lymphatic: No Adenopathy Course - Vital Signs Last Recorded V/S: Last Vital Signs Temp 37.0 C 12/23/19 14:33 Pulse 114 H 12/23/19 14:33 Resp 18 12/23/19 14:33 BP 108/61 12/23/19 14:33 Pulse Ox 100 12/23/19 14:33 - Orders/Labs/Meds Labs: Laboratory Tests 12/23/19 12/23/19 12/23/19 Range/Units 13:47 13:47 13:56 WBC 10.7 H (5.0-10.0) 10^3/uL RBC 5.37 (4.6-6.2) 10^6/uL Hgb 16.0 (14.0-18.0) g/dL Hct 47.6 (40.0-54.0) % MCV 88.6 (80-100) fL MCH 29.8 (27.0-34.0) pg MCHC 33.6 (33.0-35.0) g/dL Plt Count 224 (150-450) 10^3/uL Neut % (Auto) 86.3 H (42.2-75.2) % Lymph % (Auto) 6.3 L (20.5-50.1) % [place] % (Auto) 6.9 (2-8) % Eos % (Auto) 0.3 L (1.0-3.0) % Baso % (Auto) 0.2 (0.0-1.0) % Sodium 134 L (136-145) mmol/L Potassium 3.9 (3.5-5.1) mmol/L Chloride 98 (98-107) mmol/L Carbon Dioxide 28 (21-32) mmol/L Anion Gap 11.9 (7-13) mEq/L BUN 15 (7-18) mg/dL Creatinine 1.08 (0.70-1.30) mg/dL Est Cr Clr Drug Dosing 92.14 mL/min Estimated GFR (MDRD) > 60 BUN/Creatinine Ratio 13.9 (No establ ref range) Glucose 235 H (74-99) mg/dL Calcium 8.9 (8.5-10.1) mg/dL Total Bilirubin 1.1 H (0.2-1.0) mg/dL AST 25 (15-37) U/L ALT 29 (16-63) U/L Alkaline Phosphatase 123 H (46-116) U/L Total Protein 7.5 (6.4-8.2) g/dL Albumin 4.3 (3.4-5.0) g/dL Globulin 3.2 Albumin/Globulin Ratio 1.3 Ketones Negative COVID-19 (LES) Negative (NEGATIVE) Departure - Departure Time of Disposition: 15:05 Disposition: Home, Self-Care 01 Condition: Fair Clinical Impression: Acute anxiety, Panic attack - Discharge Information *PRESCRIPTION DRUG MONITORING PROGRAM REVIEWED*: Not Applicable *COPY OF PRESCRIPTION DRUG MONITORING REPORT IN PATIENT CHERRI: Not Applicable Instructions: Panic Attack, [id number] Forms: ED Department Discharge Care Plan Goals: The patient was advised of the examination and lab results during the visit. The patient was encouraged to continue to take his medications as prescribed. If the patient has any additional symptoms or concerns, the patient should either return to the emergency department or visit his primary care facility. Sepsis Event Note (ED) - Evaluation Sepsis Screening Result: Possible Sepsis Risk - Focused Exam Vital Signs: Vital Signs Temp Pulse Resp BP Pulse Ox 12/23/19 14:33 37.0 C 114 H 18 108/61 100 12/23/19 13:26 38.0 C 121 H 16 118/77 95
[2019-12-23 14:34] VITALS: BP 108/61; PULSE 114
== END 2019-12-23 15:16 | disposition home or self-care (01) ==
LOC: DL.ED 15:08
DX: F41.0 Panic disorder [episodic paroxysmal anxiety] (principal); E10.10 Type 1 diabetes mellitus with ketoacidosis without coma; Z20.828 Contact with and (suspected) exposure to other viral communicable diseases
CPT/HCPCS: 36415; 80053; 82009; 82962; 85025; 99282; 99283; U0002

== ENCOUNTER 2020-02-23 21:17 | Inpatient (IN) | payer BC, OTHER ==
[2020-02-23 21:56] LABS: ANION GAP 29.4 mEq/L (7-13); CHLORIDE,CL 94 mmol/L (98-107); SODIUM,NA 133 mmol/L (136-145)
--- NOTE | 2020-02-23 21:56 | EDM.PDOC ---
ED HPI GENERAL MEDICAL PROBLEM - General Chief Complaint: General Stated Complaint: THROWING UP, CHEST HURTS, HARD TIME BREATHING. Time Seen by Provider: 02/23/20 21:45 Source of Information: Reports: Patient History Limitations: Reports: No Limitations - History of Present Illness INITIAL COMMENTS - FREE TEXT/NARRATIVE: This 25 yo male patient was brought to the ED by his family due to a 6 hour history of nausea/vomiting, generalized weakness, chest pain and shortness of breath. The patient reports a history of diabetes with his blood sugars running in the 300's all day. The patient reports he has been attempting to treat his high blood sugar levels with insulin, but has not been able to lower his sugar levels. Onset: Today Duration: Constant Location: Reports: Chest, Generalized Quality: Reports: Other Severity: Moderate Improves with: Reports: None Worsens with: Reports: None Context: Reports: Other Associated Symptoms: Reports: No Other Symptoms Epigastric Pain Score (Numeric/FACES): 7 - Related Data Allergies Allergy/AdvReac Type Severity Reaction Status Date / Time No Known Allergies Allergy Verified 12/23/19 13:33 Home Meds: Home Meds Insulin Aspart [Novolog] 20 units SUBCUT ASDIRECTED 10/18/13 [History] Insulin Glarg,Human.Rec.Analog [Lantus Solostar] 33 unit SUBCUT BEDTIME 10/18/13 [History] lamoTRIgine 200 mg PO BID 09/20/18 [History] Past Medical History HEENT History: Reports: Impaired Vision, Other (See Below) Other HEENT History: wears glasses Cardiovascular History: Reports: None Respiratory History: Reports: None Gastrointestinal History: Reports: None Genitourinary History: Reports: Acute Renal Failure Musculoskeletal History: Reports: None Neurological History: Reports: Seizure Psychiatric History: Reports: None Endocrine/Metabolic History: Reports: Diabetes, Type I, Other (See Below) Other Endocrine/Metabolic History: on insulin at home Hematologic History: Reports: None Immunologic History: Reports: None Oncologic (Cancer) History: Reports: None Dermatologic History: Reports: None - Infectious Disease History Infectious Disease History: Reports: None - Past Surgical History Head Surgeries/Procedures: Reports: None Social & Family History - Family History Family Medical History: Noncontributory Endocrine/Metabolic: Reports: IDDM - Tobacco Use Smoking Status *Q: Unknown Ever Smoked - Caffeine Use Caffeine Use: Reports: Soda - Recreational Drug Use Recreational Drug Use: No - Living Situation & Occupation Living situation: Reports: Single, with Family Occupation: Employed ED ROS GENERAL - Review of Systems Review Of Systems: Comprehensive ROS is negative, except as noted in HPI. ED EXAM, GENERAL - Physical Exam Exam: See Below Exam Limited By: No Limitations General Appearance: Alert, WD/WN, Mild Distress, Thin Eye Exam: Bilateral Eye: EOMI, Normal Inspection, PERRL Ears: Normal External Exam, Normal Canal, Hearing Grossly Normal, Normal TMs Nose: Normal Inspection, Normal Mucosa, No Blood Throat/Mouth: Normal Inspection, Normal Lips, Normal Teeth, Normal Gums, Normal Oropharynx, Normal Voice, No Airway Compromise Head: Atraumatic, Normocephalic Neck: Normal Inspection, Supple, Non-Tender, Full Range of Motion Respiratory/Chest: No Respiratory Distress, Lungs Clear, Normal Breath Sounds, No Accessory Muscle Use, Chest Non-Tender Cardiovascular: Normal Peripheral Pulses, Regular Rate, Rhythm, No Edema, No Gallop, No JVD, No Murmur, No Rub GI/Abdominal: Normal Bowel Sounds, Soft, Non-Tender, No Organomegaly, No Distent ion, No Abnormal Bruit, No Mass (Male) Exam: Deferred Rectal (Males) Exam: Deferred Back Exam: Normal Inspection, Full Range of Motion, NT Extremities: Normal Inspection, Normal Range of Motion, Non-Tender, Normal Capillary Refill, No Pedal Edema Neurological: Alert, Oriented, CN II-XII Intact, Normal Cognition, Normal Gait, Normal Reflexes, No Motor/Sensory Deficits Psychiatric: Normal Affect, Normal Mood Skin Exam: Warm, Dry, Intact, Normal Color, No Rash Lymphatic: No Adenopathy Course - Vital Signs Last Recorded V/S: Last Vital Signs Temp 36.9 C 02/23/20 21:24 Pulse 137 H 02/23/20 21:24 Resp 20 02/23/20 21:24 BP 116/74 02/23/20 21:24 Pulse Ox 95 02/23/20 21:24 - Orders/Labs/Meds Orders: Active Orders 24 hr Category Date Time Status Admission Diagnosis [ADT] Urgent ADT 02/24/20 00:00 Ordered Admission Status [Patient Status] [ADT] Routine ADT 02/24/20 00:00 Ordered Blood Glucose Check, Bedside [RC] ONETIME Care 02/23/20 22:38 Ordered EKG Documentation Completion [RC] STAT Care 02/23/20 21:25 Active CORONAVIRUS COVID-19 PCR PHL Urgent Lab 02/23/20 21:42 Received CULTURE BLOOD [BC] Stat Lab 02/23/20 21:57 Ordered CULTURE BLOOD [BC] Stat Lab 02/23/20 21:57 Ordered Dextrose 5%-0.45% NaCl [Dextrose 5%-1/2 NS] 1,000 ml Med 02/23/20 23:45 Ordered IV ASDIRECTED Insulin Regular, Human [HumuLIN R] 100 unit Med 02/24/20 00:00 Ordered Sodium Chloride 0.9% [Normal Saline] 99 ml IV TITRATE Sodium Chloride 0.9% [Normal Saline] 1,000 ml Med 02/23/20 22:00 Active IV ASDIRECTED Sodium Chloride 0.9% [Normal Saline] 1,000 ml Med 02/23/20 23:00 Ordered IV ASDIRECTED Blood Culture x2 Reflex Set [OM.PC] Stat Oth 02/23/20 21:57 Ordered Isolation [COMM] Routine Oth 02/23/20 21:26 Active Medication Orders Sodium Chloride (Normal Saline) 1,000 mls @ 999 mls/hr IV ASDIRECTED BUZZ Last Admin: 02/23/20 22:00 Dose: 999 mls/hr Documented by: PATRICIA Sodium Chloride (Normal Saline) 1,000 mls @ 999 mls/hr IV ASDIRECTED BUZZ Last Admin: 02/23/20 22:59 Dose: 999 mls/hr Documented by: PATRICIA Dextrose/Sodium Chloride (Dextrose 5%-1/2 Ns) 1,000 mls @ 250 mls/hr IV ASDIRECTED BUZZ Insulin Human Regular 100 unit (/ Sodium Chloride) 100 mls @ 31.706 mls/hr IV TITRATE BUZZ; Protocol Labs: Laboratory Tests 02/23/20 02/23/20 02/23/20 Range/Units 21:27 21:27 21:27 WBC 24.7 H (5.0-10.0) 10^3/uL RBC 5.40 (4.6-6.2) 10^6/uL Hgb 16.4 (14.0-18.0) g/dL Hct 47.1 (40.0-54.0) % MCV 87.2 (80-100) fL MCH 30.4 (27.0-34.0) pg MCHC 34.8 (33.0-35.0) g/dL Plt Count 348 D (150-450) 10^3/uL Neut % (Auto) 90.7 H (42.2-75.2) % Lymph % (Auto) 5.0 L (20.5-50.1) % [place] % (Auto) 4.2 (2-8) % Eos % (Auto) 0.0 L (1.0-3.0) % Baso % (Auto) 0.1 (0.0-1.0) % ABG pH (7.35-7.45) ABG pCO2 (35-45) mmHg ABG pO2 (70-100) mmHg ABG HCO3 (22-26) mmol/L ABG O2 Saturation (95-100) % ABG Base Excess ((-2)-(+3)) mmol/L O2 Delivery Device Sodium 133 L (136-145) mmol/L Potassium 4.4 (3.5-5.1) mmol/L Chloride 94 L (98-107) mmol/L Carbon Dioxide 14 L D (21-32) mmol/L Anion Gap 29.4 H (7-13) mEq/L BUN 22 H (7-18) mg/dL Creatinine 1.41 H (0.70-1.30) mg/dL Est Cr Clr Drug Dosing 72.46 mL/min Estimated GFR (MDRD) > 60 BUN/Creatinine Ratio 15.6 (No establ ref range) Glucose 353 H (74-99) mg/dL POC Glucose (70-105) mg/dl Lactic Acid (0.4-2.0) mmol/L Calcium 9.4 (8.5-10.1) mg/dL Total Bilirubin 1.4 H (0.2-1.0) mg/dL AST 29 (15-37) U/L ALT 50 (16-63) U/L Alkaline Phosphatase 144 H (46-116) U/L Troponin I < 0.017 (0.000-0.056) ng/mL Total Protein 7.7 (6.4-8.2) g/dL Albumin 4.7 (3.4-5.0) g/dL Globulin 3.0 Albumin/Globulin Ratio 1.6 Urine Color (YELLOW) Urine Appearance (CLEAR) Urine pH (5.0-9.0) Ur Specific [place] (1.005-1.030) Urine Protein (NEGATIVE) Urine Glucose (UA) (NEGATIVE) Urine Ketones (NEGATIVE) Urine Occult Blood (NEGATIVE) Urine Nitrite (NEGATIVE) Urine Bilirubin (NEGATIVE) Urine Urobilinogen (0.2-1.0) mg/dL Ur Leukocyte Esterase (NEGATIVE) Urine Opiates Screen (NEGATIVE) Ur Oxycodone Screen (NEGATIVE) Urine Methadone Screen (NEGATIVE) Ur Barbiturates Screen (NEGATIVE) U Tricyclic Antidepress (NEGATIVE) Ur Phencyclidine Scrn (NEGATIVE) Ur Amphetamine Screen (NEGATIVE) U Methamphetamines Scrn (NEGATIVE) Urine MDMA Screen (NEGATIVE) U Benzodiazepines Scrn (NEGATIVE) Urine Cocaine Screen (NEGATIVE) U Marijuana (THC) Screen (NEGATIVE) Ketones Positive 02/23/20 02/23/20 02/23/20 Range/Units 21:50 21:50 22:22 WBC (5.0-10.0) 10^3/uL RBC (4.6-6.2) 10^6/uL Hgb (14.0-18.0) g/dL Hct (40.0-54.0) % MCV (80-100) fL MCH (27.0-34.0) pg MCHC (33.0-35.0) g/dL Plt Count (150-450) 10^3/uL Neut % (Auto) (42.2-75.2) % Lymph % (Auto) (20.5-50.1) % [place] % (Auto) (2-8) % Eos % (Auto) (1.0-3.0) % Baso % (Auto) (0.0-1.0) % ABG pH (7.35-7.45) ABG pCO2 (35-45) mmHg ABG pO2 (70-100) mmHg ABG HCO3 (22-26) mmol/L ABG O2 Saturation (95-100) % ABG Base Excess ((-2)-(+3)) mmol/L O2 Delivery Device Sodium (136-145) mmol/L Potassium (3.5-5.1) mmol/L Chloride (98-107) mmol/L Carbon Dioxide (21-32) mmol/L Anion Gap (7-13) mEq/L BUN (7-18) mg/dL Creatinine (0.70-1.30) mg/dL Est Cr Clr Drug Dosing mL/min Estimated GFR (MDRD) BUN/Creatinine Ratio (No establ ref range) Glucose (74-99) mg/dL POC Glucose (70-105) mg/dl Lactic Acid 5.0 H* (0.4-2.0) mmol/L Calcium (8.5-10.1) mg/dL Total Bilirubin (0.2-1.0) mg/dL AST (15-37) U/L ALT (16-63) U/L Alkaline Phosphatase (46-116) U/L Troponin I (0.000-0.056) ng/mL Total Protein (6.4-8.2) g/dL Albumin (3.4-5.0) g/dL Globulin Albumin/Globulin Ratio Urine Color Yellow (YELLOW) Urine Appearance Clear (CLEAR) Urine pH 5.0 (5.0-9.0) Ur Specific [place] 1.025 (1.005-1.030) Urine Protein Negative (NEGATIVE) Urine Glucose (UA) 500 H (NEGATIVE) Urine Ketones >=160 H (NEGATIVE) Urine Occult Blood Negative (NEGATIVE) Urine Nitrite Negative (NEGATIVE) Urine Bilirubin Negative (NEGATIVE) Urine Urobilinogen 0.2 (0.2-1.0) mg/dL Ur Leukocyte Esterase Negative (NEGATIVE) Urine Opiates Screen Negative (NEGATIVE) Ur Oxycodone Screen Negative (NEGATIVE) Urine Methadone Screen Negative (NEGATIVE) Ur Barbiturates Screen Negative (NEGATIVE) U Tricyclic Antidepress Negative (NEGATIVE) Ur Phencyclidine Scrn Negative (NEGATIVE) Ur Amphetamine Screen Negative (NEGATIVE) U Methamphetamines Scrn Negative (NEGATIVE) Urine MDMA Screen Negative (NEGATIVE) U Benzodiazepines Scrn Negative (NEGATIVE) Urine Cocaine Screen Negative (NEGATIVE) U Marijuana (THC) Screen Negative (NEGATIVE) Ketones 02/23/20 02/23/20 Range/Units 22:49 23:35 WBC (5.0-10.0) 10^3/uL RBC (4.6-6.2) 10^6/uL Hgb (14.0-18.0) g/dL Hct (40.0-54.0) % MCV (80-100) fL MCH (27.0-34.0) pg MCHC (33.0-35.0) g/dL Plt Count (150-450) 10^3/uL Neut % (Auto) (42.2-75.2) % Lymph % (Auto) (20.5-50.1) % [place] % (Auto) (2-8) % Eos % (Auto) (1.0-3.0) % Baso % (Auto) (0.0-1.0) % ABG pH 7.25 L (7.35-7.45) ABG pCO2 19 L* (35-45) mmHg ABG pO2 119 H (70-100) mmHg ABG HCO3 7.8 L (22-26) mmol/L ABG O2 Saturation 98 (95-100) % ABG Base Excess -18 L ((-2)-(+3)) mmol/L O2 Delivery Device Room air Sodium (136-145) mmol/L Potassium (3.5-5.1) mmol/L Chloride (98-107) mmol/L Carbon Dioxide (21-32) mmol/L Anion Gap (7-13) mEq/L BUN (7-18) mg/dL Creatinine (0.70-1.30) mg/dL Est Cr Clr Drug Dosing mL/min Estimated GFR (MDRD) BUN/Creatinine Ratio (No establ ref range) Glucose (74-99) mg/dL POC Glucose 362 H (70-105) mg/dl Lactic Acid (0.4-2.0) mmol/L Calcium (8.5-10.1) mg/dL Total Bilirubin (0.2-1.0) mg/dL AST (15-37) U/L ALT (16-63) U/L Alkaline Phosphatase (46-116) U/L Troponin I (0.000-0.056) ng/mL Total Protein (6.4-8.2) g/dL Albumin (3.4-5.0) g/dL Globulin Albumin/Globulin Ratio Urine Color (YELLOW) Urine Appearance (CLEAR) Urine pH (5.0-9.0) Ur Specific [place] (1.005-1.030) Urine Protein (NEGATIVE) Urine Glucose (UA) (NEGATIVE) Urine Ketones (NEGATIVE) Urine Occult Blood (NEGATIVE) Urine Nitrite (NEGATIVE) Urine Bilirubin (NEGATIVE) Urine Urobilinogen (0.2-1.0) mg/dL Ur Leukocyte Esterase (NEGATIVE) Urine Opiates Screen (NEGATIVE) Ur Oxycodone Screen (NEGATIVE) Urine Methadone Screen (NEGATIVE) Ur Barbiturates Screen (NEGATIVE) U Tricyclic Antidepress (NEGATIVE) Ur Phencyclidine Scrn (NEGATIVE) Ur Amphetamine Screen (NEGATIVE) U Methamphetamines Scrn (NEGATIVE) Urine MDMA Screen (NEGATIVE) U Benzodiazepines Scrn (NEGATIVE) Urine Cocaine Screen (NEGATIVE) U Marijuana (THC) Screen (NEGATIVE) Ketones Meds: Medications Generic Name Dose Route Start Last Admin Trade Name Freq PRN Reason Stop Dose Admin Sodium Chloride 1,000 mls @ 999 mls/hr 02/23/20 22:00 02/23/20 22:00 Normal Saline IV 999 mls/hr ASDIRECTED BUZZ Administration Sodium Chloride 1,000 mls @ 999 mls/hr 02/23/20 23:00 02/23/20 22:59 Normal Saline IV 999 mls/hr ASDIRECTED BUZZ Administration Dextrose/Sodium Chloride 1,000 mls @ 250 mls/hr 02/23/20 23:45 Dextrose 5%-1/2 Ns IV ASDIRECTED BUZZ Insulin Human Regular 100 unit 100 mls @ 31.706 mls/hr 02/24/20 00:00 / Sodium Chloride IV TITRATE BUZZ Protocol 0.5 UNITS/KG/HR Discontinued Medications Generic Name Dose Route Start Last Admin Trade Name Daviq PRN Reason Stop Dose Admin Metoclopramide HCl 10 mg 02/23/20 21:57 02/23/20 22:02 Reglan IVPUSH 02/23/20 21:58 10 mg ONETIME ONE Administration Ondansetron HCl 4 mg 02/23/20 22:39 02/23/20 22:44 Zofran IVPUSH 02/23/20 22:40 4 mg ONETIME ONE Administration Departure - Departure Time of Disposition: 00:02 Disposition: Admitted As Inpatient 67 Condition: Poor Clinical Impression: DKA (diabetic ketoacidoses) Qualifiers: Diabetes mellitus type: type 1 Diabetes mellitus complication detail: without coma Qualified Code(s): E10.10 - Type 1 diabetes mellitus with ketoacidosis without coma - Discharge Information *PRESCRIPTION DRUG MONITORING PROGRAM REVIEWED*: Not Applicable *COPY OF PRESCRIPTION DRUG MONITORING REPORT IN PATIENT CHERRI: Not Applicable Care Plan Goals: Discussed the patient's history, examination, EKG, lab and x-ray results with Dr. Ashley. Dr. Ashley accepted the patient for continued evaluation and management as an inpatient at [facility]. Sepsis Event Note (ED) - Evaluation Sepsis Screening Result: No Definite Risk - Focused Exam Vital Signs: Vital Signs Temp Pulse Resp BP Pulse Ox 02/23/20 21:24 36.9 C 137 H 20 116/74 95 - My Orders Last 24 Hours: My Active Orders 02/23/20 21:25 EKG Documentation Completion [RC] STAT 02/23/20 21:26 Isolation [COMM] Routine 02/23/20 21:42 CORONAVIRUS COVID-19 PCR PHL Urgent 02/23/20 21:57 CULTURE BLOOD [BC] Stat CULTURE BLOOD [BC] Stat Blood Culture x2 Reflex Set [OM.PC] Stat 02/23/20 22:00 Sodium Chloride 0.9% [Normal Saline] 1,000 ml IV ASDIRECTED 02/23/20 22:38 Blood Glucose Check, Bedside [RC] ONETIME 02/23/20 23:00 Sodium Chloride 0.9% [Normal Saline] 1,000 ml IV ASDIRECTED 02/23/20 23:45 Dextrose 5%-0.45% NaCl [Dextrose 5%-1/2 NS] 1,000 ml IV ASDIRECTED 02/24/20 00:00 Admission Diagnosis [ADT] Urgent Admission Status [Patient Status] [ADT] Routine Insulin Regular, Human [HumuLIN R] 100 unit Sodium Chloride 0.9% [Normal Saline] 99 ml IV TITRATE - Assessment/Plan Last 24 Hours: My Active Orders 02/23/20 21:25 EKG Documentation Completion [RC] STAT 02/23/20 21:26 Isolation [COMM] Routine 02/23/20 21:42 CORONAVIRUS COVID-19 PCR PHL Urgent 02/23/20 21:57 CULTURE BLOOD [BC] Stat CULTURE BLOOD [BC] Stat Blood Culture x2 Reflex Set [OM.PC] Stat 02/23/20 22:00 Sodium Chloride 0.9% [Normal Saline] 1,000 ml IV ASDIRECTED 02/23/20 22:38 Blood Glucose Check, Bedside [RC] ONETIME 02/23/20 23:00 Sodium Chloride 0.9% [Normal Saline] 1,000 ml IV ASDIRECTED 02/23/20 23:45 Dextrose 5%-0.45% NaCl [Dextrose 5%-1/2 NS] 1,000 ml IV ASDIRECTED 02/24/20 00:00 Admission Diagnosis [ADT] Urgent Admission Status [Patient Status] [ADT] Routine Insulin Regular, Human [HumuLIN R] 100 unit Sodium Chloride 0.9% [Normal Saline] 99 ml IV TITRATE
[2020-02-23] MEDS ORDERED: Metoclopramide 10 MG/2 ML SDV IVPUSH ONE (21:57)
[2020-02-23] MEDS ORDERED: Sodium Chloride 0.9% 1,000 ML IV SCH (22:00)
--- NOTE | 2020-02-23 22:04 | CR ---
PROCEDURE INFORMATION: Exam: XR Chest, 2 Views Exam date and time: 02/23/2020 9:26 PM Age: 25 years old Clinical indication: Shortness of breath; Additional info: Chest pain with shortness of breath TECHNIQUE: Imaging protocol: XR of the chest Views: 2 views. COMPARISON: CR Chest 1V Frontal 03/29/2019 5:11 PM FINDINGS: Lungs: Clear lungs. Pleural space: No pneumothorax. No sizable pleural effusion. Heart/Mediastinum: No cardiomegaly. Bones/joints: Unremarkable. IMPRESSION: Clear lungs.
[2020-02-23] MEDS ORDERED: Ondansetron 4 MG/2 ML SDV IVPUSH ONE (22:39)
[2020-02-23] MEDS: Sodium Chloride 0.9% 1,000 ML IV SCH (22:59)
[2020-02-23 23:33] LABS: BASE EXCESS ARTERIAL -18 mmol/L ((-2)-(+3)); BICARBONATE,ARTERIAL 7.8 mmol/L (22-26); O2 DELIVERY DEVICE ROOM AIR; O2 SATURATION ARTERIAL 98 % (95-100); PO2 ARTERIAL 119 mmHg (70-100)
[2020-02-23 23:37] LABS: PCO2 ARTERIAL 19 mmHg (35-45)
[2020-02-23] MEDS ORDERED: Dextrose 5%-0.45% NaCl 1,000 ML IV SCH (23:45)
[2020-02-24] MEDS ORDERED: Magnesium Hydroxide 400 MG/5 ML Susp 30 ML Cup PO PRN (00:26)
[2020-02-24] MEDS ORDERED: Docusate Sodium 100 MG Cap PO PRN (00:26)
[2020-02-24] MEDS ORDERED: Albuterol/Ipratropium 3.0-0.5 MG/3 ML Neb Soln NEB PRN (00:26)
[2020-02-24] MEDS ORDERED: Ondansetron 4 MG/2 ML SDV IVPUSH PRN (00:26)
[2020-02-24] MEDS ORDERED: Dextrose 5%-0.9% NaCl 1,000 ML IV SCH (00:30)
[2020-02-24] MEDS ORDERED: Sodium Chloride 0.9% 1,000 ML IV SCH ×3 (00:30→14:00)
--- NOTE | 2020-02-24 00:50 | PCM.HP ---
H&P History of Present Illness - General Date of Service: 02/24/20 Admit Problem/Dx: Admission Diagnosis/Problem Admission Diagnosis/Problem DKA Source of Information: Patient History Limitations: Reports: No Limitations - History of Present Illness Initial Comments - Free Text/Narative: Alberta is 25-year-old man medical history significant for type 1 diabetes who presented to the ED for evaluation of nausea, vomiting, abdominal pain, generalized weakness that started 6 hours prior to the ED visit. Patient reports his blood sugar has been running in the 300s all day and he has been trying to control it with his insulin with no success. He started having above symptoms 6 hours prior to coming to the ED. Abdominal pain is generalized, vague in nature. It is associated with nausea and vomiting. Patient reports he vomited about 4 times. Vomitus is clear. No hematemesis. He denies melena. No diarrhea. He reports some dry cough with no shortness of breath. He reports chest pain with cough. He denies fever or chills. No dysuria or increased urinary frequency. Patient denies sick contacts or recent travel. Of note patient reports he does not take his insulin as he is supposed to. He denies alcohol ingestion or dehydration. In the ED patient was tachycardic. Labs significant for WBC 27 with left shift, pH 7.25, bicarb 7.8 on ABG. Sodium 133, potassium 4.4, creatinine 1.41 anion gap 29, lactic acid 5.0. Urine positive for ketones. U tox negative. Chest x- ray was negative. Admission was requested for further management.` Onset of Symptoms: Reports: Today Duration of Symptoms: Reports: Hour(s): Location: Reports: Abdomen Quality: Reports: Ache Severity: Moderate Improves with: Reports: None Worsens with: Reports: None Context: Reports: Activity/Exercise Associated Symptoms: Reports: No Other Symptoms Epigastric Pain Score (Numeric/FACES): 7 - Related Data Allergies/Adverse Reactions: Allergies Allergy/AdvReac Type Severity Reaction Status Date / Time No Known Allergies Allergy Verified 02/24/20 00:45 Home Medications: Home Meds Insulin Aspart [Novolog] 20 units SUBCUT ASDIRECTED 10/18/13 [History] Insulin Glarg,Human.Rec.Analog [Lantus Solostar] 33 unit SUBCUT BEDTIME 10/18/13 [History] lamoTRIgine 200 mg PO BID 09/20/18 [History] Past Medical History HEENT History: Reports: Impaired Vision, Other (See Below) Other HEENT History: wears glasses Cardiovascular History: Reports: None Respiratory History: Reports: None Gastrointestinal History: Reports: None Genitourinary History: Reports: Acute Renal Failure Musculoskeletal History: Reports: None Neurological History: Reports: Seizure Psychiatric History: Reports: None Endocrine/Metabolic History: Reports: Diabetes, Type I, Other (See Below) Other Endocrine/Metabolic History: on insulin at home Hematologic History: Reports: None Immunologic History: Reports: None Oncologic (Cancer) History: Reports: None Dermatologic History: Reports: None - Infectious Disease History Infectious Disease History: Reports: None - Past Surgical History Head Surgeries/Procedures: Reports: None Social & Family History - Family History Family Medical History: Noncontributory Endocrine/Metabolic: Reports: IDDM - Tobacco Use Smoking Status *Q: Unknown Ever Smoked - Caffeine Use Caffeine Use: Reports: Soda - Recreational Drug Use Recreational Drug Use: No - Living Situation & Occupation Living situation: Reports: Single, with Family Occupation: Employed H&P Review of Systems - Review of Systems: Review Of Systems: See Below General: Reports: Malaise, Weakness, Fatigue, Decreased Appetite HEENT: Reports: No Symptoms Pulmonary: Reports: Cough Cardiovascular: Reports: Chest Pain Gastrointestinal: Reports: Abdominal Pain, Anorexia, Decreased Appetite Genitourinary: Reports: No Symptoms Musculoskeletal: Reports: Shoulder Pain Skin: Reports: No Symptoms Psychiatric: Reports: No Symptoms Neurological: Reports: No Symptoms Hematologic/Lymphatic: Reports: No Symptoms Immunologic: Reports: No Symptoms Exam - Exam Exam: See Below - Vital Signs Vital Signs: Last Vital Signs Temp 98.4 F 02/23/20 21:24 Pulse 137 H 02/23/20 21:24 Resp 20 02/23/20 21:24 BP 116/74 02/23/20 21:24 Pulse Ox 95 02/23/20 21:24 Weight: 139 lb 12.8 oz - Exam Quality Assessment: DVT Prophylaxis General: Alert, Oriented, Lethargic HEENT: Conjunctiva Clear, EACs Clear, EOMI, Hearing Intact, Mucosa Moist & Aldie, Nares Patent, Normal Nasal Septum, Posterior Pharynx Clear, TMs Clear, Other (Oral mucosa), PERRLA Neck: Supple, Trachea Midline, 2 Lungs: Clear to Auscultation, Normal Respiratory Effort Cardiovascular: Regular Rate, Regular Rhythm, Tachycardia GI/Abdominal Exam: Normal Bowel Sounds, Soft, Non-Tender, No Organomegaly, No Distention, No Abnormal Bruit, No Mass, Pelvis Stable (Male) Exam: No Hernia, Normal Inspection, Normal Prostate, Circumcised Rectal (Males) Exam: Normal Exam, Normal Rectal Tone, Prostate Normal Back Exam: Normal Inspection, Full Range of Motion, NT Extremities: Normal Inspection, Normal Range of Motion, Non-Tender, No Pedal Edema, Normal Capillary Refill Skin: Warm, Dry, Intact Neurological: Cranial Nerves Intact, Reflexes Equal Bilateral Neuro Extensive - Mental Status: Alert, Oriented x3, Normal Mood/Affect, Normal Cognition Neuro Extensive - Motor, Sensory, Reflexes: CN II-XII Intact, Normal Gait, Normal Reflexes Psychiatric: Alert, Normal Affect, Normal Mood - Patient Data Lab Results Last 24 hrs: Laboratory Results - last 24 hr 02/23/20 02/23/20 02/23/20 Range/Units 21:27 21:27 21:27 WBC 24.7 H (5.0-10.0) 10^3/uL RBC 5.40 (4.6-6.2) 10^6/uL Hgb 16.4 (14.0-18.0) g/dL Hct 47.1 (40.0-54.0) % MCV 87.2 (80-100) fL MCH 30.4 (27.0-34.0) pg MCHC 34.8 (33.0-35.0) g/dL Plt Count 348 D (150-450) 10^3/uL Neut % (Auto) 90.7 H (42.2-75.2) % Lymph % (Auto) 5.0 L (20.5-50.1) % Payne % (Auto) 4.2 (2-8) % Eos % (Auto) 0.0 L (1.0-3.0) % Baso % (Auto) 0.1 (0.0-1.0) % ABG pH (7.35-7.45) ABG pCO2 (35-45) mmHg ABG pO2 (70-100) mmHg ABG HCO3 (22-26) mmol/L ABG O2 Saturation (95-100) % ABG Base Excess ((-2)-(+3)) mmol/L O2 Delivery Device Sodium 133 L (136-145) mmol/L Potassium 4.4 (3.5-5.1) mmol/L Chloride 94 L (98-107) mmol/L Carbon Dioxide 14 L D (21-32) mmol/L Anion Gap 29.4 H (7-13) mEq/L BUN 22 H (7-18) mg/dL Creatinine 1.41 H (0.70-1.30) mg/dL Est Cr Clr Drug Dosing 72.46 mL/min Estimated GFR (MDRD) > 60 BUN/Creatinine Ratio 15.6 (No establ ref range) Glucose 353 H (74-99) mg/dL POC Glucose (70-105) mg/dl Lactic Acid (0.4-2.0) mmol/L Calcium 9.4 (8.5-10.1) mg/dL Total Bilirubin 1.4 H (0.2-1.0) mg/dL AST 29 (15-37) U/L ALT 50 (16-63) U/L Alkaline Phosphatase 144 H (46-116) U/L Troponin I < 0.017 (0.000-0.056) ng/mL Total Protein 7.7 (6.4-8.2) g/dL Albumin 4.7 (3.4-5.0) g/dL Globulin 3.0 Albumin/Globulin Ratio 1.6 Urine Color (YELLOW) Urine Appearance (CLEAR) Urine pH (5.0-9.0) Ur Specific [place] (1.005-1.030) Urine Protein (NEGATIVE) Urine Glucose (UA) (NEGATIVE) Urine Ketones (NEGATIVE) Urine Occult Blood (NEGATIVE) Urine Nitrite (NEGATIVE) Urine Bilirubin (NEGATIVE) Urine Urobilinogen (0.2-1.0) mg/dL Ur Leukocyte Esterase (NEGATIVE) Urine Opiates Screen (NEGATIVE) Ur Oxycodone Screen (NEGATIVE) Urine Methadone Screen (NEGATIVE) Ur Barbiturates Screen (NEGATIVE) U Tricyclic Antidepress (NEGATIVE) Ur Phencyclidine Scrn (NEGATIVE) Ur Amphetamine Screen (NEGATIVE) U Methamphetamines Scrn (NEGATIVE) Urine MDMA Screen (NEGATIVE) U Benzodiazepines Scrn (NEGATIVE) Urine Cocaine Screen (NEGATIVE) U Marijuana (THC) Screen (NEGATIVE) Ketones Positive 02/23/20 02/23/20 02/23/20 Range/Units 21:50 21:50 22:22 WBC (5.0-10.0) 10^3/uL RBC (4.6-6.2) 10^6/uL Hgb (14.0-18.0) g/dL Hct (40.0-54.0) % MCV (80-100) fL MCH (27.0-34.0) pg MCHC (33.0-35.0) g/dL Plt Count (150-450) 10^3/uL Neut % (Auto) (42.2-75.2) % Lymph % (Auto) (20.5-50.1) % Payne % (Auto) (2-8) % Eos % (Auto) (1.0-3.0) % Baso % (Auto) (0.0-1.0) % ABG pH (7.35-7.45) ABG pCO2 (35-45) mmHg ABG pO2 (70-100) mmHg ABG HCO3 (22-26) mmol/L ABG O2 Saturation (95-100) % ABG Base Excess ((-2)-(+3)) mmol/L O2 Delivery Device Sodium (136-145) mmol/L Potassium (3.5-5.1) mmol/L Chloride (98-107) mmol/L Carbon Dioxide (21-32) mmol/L Anion Gap (7-13) mEq/L BUN (7-18) mg/dL Creatinine (0.70-1.30) mg/dL Est Cr Clr Drug Dosing mL/min Estimated GFR (MDRD) BUN/Creatinine Ratio (No establ ref range) Glucose (74-99) mg/dL POC Glucose (70-105) mg/dl Lactic Acid 5.0 H* (0.4-2.0) mmol/L Calcium (8.5-10.1) mg/dL Total Bilirubin (0.2-1.0) mg/dL AST (15-37) U/L ALT (16-63) U/L Alkaline Phosphatase (46-116) U/L Troponin I (0.000-0.056) ng/mL Total Protein (6.4-8.2) g/dL Albumin (3.4-5.0) g/dL Globulin Albumin/Globulin Ratio Urine Color Yellow (YELLOW) Urine Appearance Clear (CLEAR) Urine pH 5.0 (5.0-9.0) Ur Specific [place] 1.025 (1.005-1.030) Urine Protein Negative (NEGATIVE) Urine Glucose (UA) 500 H (NEGATIVE) Urine Ketones >=160 H (NEGATIVE) Urine Occult Blood Negative (NEGATIVE) Urine Nitrite Negative (NEGATIVE) Urine Bilirubin Negative (NEGATIVE) Urine Urobilinogen 0.2 (0.2-1.0) mg/dL Ur Leukocyte Esterase Negative (NEGATIVE) Urine Opiates Screen Negative (NEGATIVE) Ur Oxycodone Screen Negative (NEGATIVE) Urine Methadone Screen Negative (NEGATIVE) Ur Barbiturates Screen Negative (NEGATIVE) U Tricyclic Antidepress Negative (NEGATIVE) Ur Phencyclidine Scrn Negative (NEGATIVE) Ur Amphetamine Screen Negative (NEGATIVE) U Methamphetamines Scrn Negative (NEGATIVE) Urine MDMA Screen Negative (NEGATIVE) U Benzodiazepines Scrn Negative (NEGATIVE) Urine Cocaine Screen Negative (NEGATIVE) U Marijuana (THC) Screen Negative (NEGATIVE) Ketones 02/23/20 02/23/20 Range/Units 22:49 23:35 WBC (5.0-10.0) 10^3/uL RBC (4.6-6.2) 10^6/uL Hgb (14.0-18.0) g/dL Hct (40.0-54.0) % MCV (80-100) fL MCH (27.0-34.0) pg MCHC (33.0-35.0) g/dL Plt Count (150-450) 10^3/uL Neut % (Auto) (42.2-75.2) % Lymph % (Auto) (20.5-50.1) % Payne % (Auto) (2-8) % Eos % (Auto) (1.0-3.0) % Baso % (Auto) (0.0-1.0) % ABG pH 7.25 L (7.35-7.45) ABG pCO2 19 L* (35-45) mmHg ABG pO2 119 H (70-100) mmHg ABG HCO3 7.8 L (22-26) mmol/L ABG O2 Saturation 98 (95-100) % ABG Base Excess -18 L ((-2)-(+3)) mmol/L O2 Delivery Device Room air Sodium (136-145) mmol/L Potassium (3.5-5.1) mmol/L Chloride (98-107) mmol/L Carbon Dioxide (21-32) mmol/L Anion Gap (7-13) mEq/L BUN (7-18) mg/dL Creatinine (0.70-1.30) mg/dL Est Cr Clr Drug Dosing mL/min Estimated GFR (MDRD) BUN/Creatinine Ratio (No establ ref range) Glucose (74-99) mg/dL POC Glucose 362 H (70-105) mg/dl Lactic Acid (0.4-2.0) mmol/L Calcium (8.5-10.1) mg/dL Total Bilirubin (0.2-1.0) mg/dL AST (15-37) U/L ALT (16-63) U/L Alkaline Phosphatase (46-116) U/L Troponin I (0.000-0.056) ng/mL Total Protein (6.4-8.2) g/dL Albumin (3.4-5.0) g/dL Globulin Albumin/Globulin Ratio Urine Color (YELLOW) Urine Appearance (CLEAR) Urine pH (5.0-9.0) Ur Specific [place] (1.005-1.030) Urine Protein (NEGATIVE) Urine Glucose (UA) (NEGATIVE) Urine Ketones (NEGATIVE) Urine Occult Blood (NEGATIVE) Urine Nitrite (NEGATIVE) Urine Bilirubin (NEGATIVE) Urine Urobilinogen (0.2-1.0) mg/dL Ur Leukocyte Esterase (NEGATIVE) Urine Opiates Screen (NEGATIVE) Ur Oxycodone Screen (NEGATIVE) Urine Methadone Screen (NEGATIVE) Ur Barbiturates Screen (NEGATIVE) U Tricyclic Antidepress (NEGATIVE) Ur Phencyclidine Scrn (NEGATIVE) Ur Amphetamine Screen (NEGATIVE) U Methamphetamines Scrn (NEGATIVE) Urine MDMA Screen (NEGATIVE) U Benzodiazepines Scrn (NEGATIVE) Urine Cocaine Screen (NEGATIVE) U Marijuana (THC) Screen (NEGATIVE) Ketones Result Diagrams: 02/24/20 06:42 02/24/20 06:42 Artemio Results Last 24 hrs: Microbiology 02/23/20 21:42 Influenza Type A Antigen Screen - Final Nasal, Unspecified NEGATIVE INFLUENZA A VIRUS AG REFERENCE RANGE: NEGATIVE Influenza Type B Antigen Screen - Final NEGATIVE INFLUENZA B VIRUS AG REFERENCE RANGE: NEGATIVE - Problem List (1) Sepsis SNOMED Code(s): 63905721 ICD Code: A41.9 - SEPSIS, UNSPECIFIED ORGANISM Status: Acute Current Visit: Yes Problem List Initiated/Reviewed/Updated: Yes Orders Last 24hrs: Active Orders 24 hr Category Date Time Status Admission Diagnosis [ADT] Urgent ADT 02/24/20 00:00 Ordered Admission Status [Patient Status] [ADT] Routine ADT 02/24/20 00:00 Active Ambulate [RC] ASDIRECTED Care 02/24/20 00:26 Ordered Blood Glucose Check, Bedside [RC] ONETIME Care 02/23/20 22:38 Active Blood Glucose Check, Bedside [RC] Q1HR Care 02/24/20 00:26 Ordered EKG Documentation Completion [RC] STAT Care 02/23/20 21:25 Active Intake and Output [RC] QSHIFT Care 02/24/20 00:26 Ordered Notify Provider Vital Signs [RC] ASDIRECTED Care 02/24/20 00:26 Ordered Oxygen Therapy [RC] PRN Care 02/24/20 00:26 Ordered RT Aerosol Therapy [RC] ASDIRECTED Care 02/24/20 00:33 Ordered VTE/DVT Education [RC] PER UNIT ROUTINE Care 02/24/20 00:26 Ordered Vital Signs [RC] Q4H Care 02/24/20 00:26 Ordered BASIC METABOLIC PANEL,BMP [CHEM] Q4H Lab 02/24/20 02:00 Ordered BASIC METABOLIC PANEL,BMP [CHEM] Q4H Lab 02/24/20 06:00 Ordered BASIC METABOLIC PANEL,BMP [CHEM] Q4H Lab 02/24/20 10:00 Ordered BASIC METABOLIC PANEL,BMP [CHEM] Q4H Lab 02/24/20 14:00 Ordered BASIC METABOLIC PANEL,BMP [CHEM] Q4H Lab 02/24/20 18:00 Ordered BLOOD GAS VENOUS [BG] Q4H Lab 02/24/20 00:39 Ordered BLOOD GAS VENOUS [BG] Q4H Lab 02/24/20 04:39 Ordered BLOOD GAS VENOUS [BG] Q4H Lab 02/24/20 08:39 Ordered BLOOD GAS VENOUS [BG] Q4H Lab 02/24/20 12:39 Ordered BLOOD GAS VENOUS [BG] Q4H Lab 02/24/20 16:39 Ordered BLOOD GAS VENOUS [BG] Q4H Lab 02/24/20 20:39 Ordered CBC WITH AUTO DIFF [HEME] DAILY Lab 02/24/20 07:00 Ordered CBC WITH AUTO DIFF [HEME] DAILY Lab 02/25/20 07:00 Ordered CBC WITH AUTO DIFF [HEME] DAILY Lab 02/26/20 07:00 Ordered CBC WITH AUTO DIFF [HEME] DAILY Lab 02/27/20 07:00 Ordered CBC WITH AUTO DIFF [HEME] DAILY Lab 02/28/20 07:00 Ordered CORONAVIRUS COVID-19 PCR PHL Urgent Lab 02/23/20 21:42 Received CULTURE BLOOD [BC] Stat Lab 02/23/20 22:22 Received CULTURE BLOOD [BC] Stat Lab 02/23/20 22:30 Received CULTURE URINE [RM] Stat Lab 02/24/20 00:26 Ordered MAGNESIUM [CHEM] Timed Lab 02/24/20 00:26 Ordered PHOSPHORUS [CHEM] Routine Lab 02/24/20 00:26 Ordered PROCALCITONIN [REF] Stat Lab 02/24/20 00:42 Ordered Acetaminophen [TylenoL] Med 02/24/20 00:26 Ordered 650 mg PO Q4H PRN Albuterol/Ipratropium [DuoNeb 3.0-0.5 MG/3 ML] Med 02/24/20 00:26 Ordered 3 ml NEB Q4H PRN Dextrose 5%-0.9% NaCl [Dextrose 5%-Normal Saline] 1,000 Med 02/24/20 00:30 Active ml IV ASDIRECTED Docusate Sodium [Colace] Med 02/24/20 00:26 Ordered 100 mg PO BID PRN Heparin Sodium Med 02/24/20 09:00 Ordered 5,000 units SUBCUT Q12HR Insulin Regular, Human [HumuLIN R] 100 unit Med 02/24/20 00:00 Active Sodium Chloride 0.9% [Normal Saline] 99 ml IV TITRATE Magnesium Hydroxide [Milk of Magnesia] Med 02/24/20 00:26 Ordered 30 ml PO Q12H PRN Ondansetron [Zofran] Med 02/24/20 00:26 Ordered 4 mg IVPUSH Q6H PRN Pantoprazole [ProTONIX IV] Med 02/24/20 00:45 Ordered 40 mg IVPUSH DAILY Piperacillin/Tazobactam [Zosyn] 3.375 gm Med 02/24/20 00:45 Ordered Sodium Chloride 0.9% [Normal Saline] 100 ml IV Q6H Sodium Chloride 0.9% [Normal Saline] 1,000 ml Med 02/24/20 00:30 Ordered IV .BOLUS Sodium Chloride 0.9% [Normal Saline] 1,000 ml Med 02/23/20 22:00 Active IV ASDIRECTED Sodium Chloride 0.9% [Normal Saline] 1,000 ml Med 02/23/20 23:00 Active IV ASDIRECTED Vancomycin 1 gm Med 02/24/20 00:45 Ordered Sodium Chloride 0.9% [Normal Saline (AdvBag)] 250 ml IV Q8H Blood Culture x2 Reflex Set [OM.PC] Stat Oth 02/23/20 21:57 Ordered Isolation [COMM] Routine Oth 02/23/20 21:26 Active Resuscitation Status Routine Resus Stat 02/24/20 00:26 Ordered Medication Orders Acetaminophen (Tylenol) 650 mg PO Q4H PRN PRN Reason: Pain (Mild 1-3)/fever Albuterol/Ipratropium (Duoneb 3.0-0.5 Mg/3 Ml) 3 ml NEB Q4H PRN PRN Reason: shortness of breath/wheezing Docusate Sodium (Colace) 100 mg PO BID PRN PRN Reason: Constipation Heparin Sodium (Porcine) (Heparin Sodium) 5,000 units SUBCUT Q12HR [facility] Sodium Chloride (Normal Saline) 1,000 mls @ 999 mls/hr IV ASDIRECTED [facility] Last Admin: 02/23/20 22:00 Dose: 999 mls/hr Documented by: PARTICIA Sodium Chloride (Normal Saline) 1,000 mls @ 999 mls/hr IV ASDIRECTED [facility] Last Admin: 02/23/20 22:59 Dose: 999 mls/hr Documented by: PATRICIA Insulin Human Regular 100 unit (/ Sodium Chloride) 100 mls @ 31.706 mls/hr IV TITRATE BUZZ; Protocol Last Titration: 02/24/20 00:25 Dose: 0.1 units/kg/hr, 6.341 mls/hr Documented by: SALTY Cosigned by: PATRICIA Admin: 02/24/20 00:11 Dose: 0.5 units/kg/hr, 31.706 mls/hr Documented by: SALTY Cosigned by: PATRICIA Dextrose/Sodium Chloride (Dextrose 5%-Normal Saline) 1,000 mls @ 250 mls/hr IV ASDIRECTED [facility] Last Admin: 02/24/20 00:39 Dose: 250 mls/hr Documented by: SD Sodium Chloride (Normal Saline) 1,000 mls @ 999 mls/hr IV .BOLUS BUZZ Vancomycin HCl 1 gm/ Sodium (Chloride) 250 mls @ 167 mls/hr IV Q8H [facility] Piperacillin Sod/Tazobactam (Sod 3.375 gm/ Sodium Chloride) 100 mls @ 200 mls/hr IV Q6H [facility] Magnesium Hydroxide (Milk Of Magnesia) 30 ml PO Q12H PRN PRN Reason: Constipation Ondansetron HCl (Zofran) 4 mg IVPUSH Q6H PRN PRN Reason: Nausea/Vomiting Pantoprazole Sodium (Protonix Iv) 40 mg IVPUSH DAILY [facility] Assessment/Plan Comment:: #DKA in a patient with type 1 diabetes due to medication noncompliance -Admit to medical floor -DKA protocol -BMP q4h -VBG 4qh -Transition to Subcut insulin when gap close -NPO #Anion gap metabolic acidosis due to above -IVF -Follow up #Probable sepsis versus SIRS -Etiology not clear -Evidenced by tachycardia, leukocytosis, lactic acidosis -Chest x-ray negative for infiltrate -Urine negative -Sent for blood cx, urine cx -Sent for procalcitonin -empiric abx with Vanco and Zosyn -IVF #REKHA -Carlyley pre-renal azotemia -BMP q4h -IVF #Hyponatremia -This is pseudohyponatremia -With resolution of the correction of hyperglycemia -IVF #Full Code
[2020-02-24] MEDS: Pantoprazole 40 MG Vial IVPUSH SCH ×2 (01:25→09:07)
[2020-02-24] MEDS ORDERED: Pantoprazole 40 MG Tab.CR PO ONE (01:44)
[2020-02-24] MEDS ORDERED: Pantoprazole 40 MG Vial IVPUSH ONE (01:45)
[2020-02-24 02:29] LABS: BASE EXCESS VENOUS -17.6 mmol/l ((-2)-(+3)); BICARBONATE,VENOUS 10 mmol/l (19-25); O2 DELIVERY DEVICE ROOM AIR; O2 SATURATION VENOUS 95.4 % (60-80); PCO2 VENOUS 27 mmHg (41-51); PO2 VENOUS 92 mmHg (35-42)
[2020-02-24 02:32] LABS: PH,VENOUS 7.18 (7.31-7.41)
[2020-02-24 02:45] LABS: ANION GAP 28.5 mEq/L (7-13); CHLORIDE,CL 102 mmol/L (98-107); SODIUM,NA 138 mmol/L (136-145)
[2020-02-24] MEDS: Piperacillin/Tazobactam 3.375 GM in Sodium Chloride 0.9% 100 ML IV SCH ×4 (03:34→19:47)
[2020-02-24] MEDS: Sodium Chloride 0.9% 1,000 ML IV SCH ×2 (05:24→06:24)
[2020-02-24 07:19] LABS: ANION GAP 18.7 mEq/L (7-13); CHLORIDE,CL 105 mmol/L (98-107); SODIUM,NA 136 mmol/L (136-145)
[2020-02-24] MEDS: Acetaminophen 325 MG Tab PO PRN (07:28)
[2020-02-24] MEDS ORDERED: Dextrose 5%-0.45% NaCl 1,000 ML IV SCH (07:30)
[2020-02-24] MEDS ORDERED: Sodium Bicarbonate 100 MEQ in Dextrose 5% in Water 1,000 ML IV ONE ×2 (08:04)
[2020-02-24] MEDS: lamoTRIgine 100 MG Tab PO SCH ×2 (09:07→21:29)
[2020-02-24] MEDS: Heparin Sodium 5,000 Units/ML Vial SUBCUT SCH ×2 (09:07→21:29)
[2020-02-24 10:26] LABS: BASE EXCESS VENOUS -7.7 mmol/l ((-2)-(+3)); BICARBONATE,VENOUS 16 mmol/l (19-25); O2 DELIVERY DEVICE ROOM AIR; O2 SATURATION VENOUS 92.2 % (60-80); PCO2 VENOUS 30 mmHg (41-51); PH,VENOUS 7.35 (7.31-7.41); PO2 VENOUS 64 mmHg (35-42)
[2020-02-24 10:45] LABS: ANION GAP 13.4 mEq/L (7-13); CHLORIDE,CL 105 mmol/L (98-107); SODIUM,NA 136 mmol/L (136-145)
[2020-02-24] MEDS ORDERED: Insulin Glarg,Human.Rec.Analog 100 Unit/ML SUBCUT ONE (10:56)
[2020-02-24] MEDS ORDERED: D5 1/2 NS w/ 20 mEq/L KCl 1,000 ML IV SCH (11:00)
[2020-02-24] MEDS: Benzocaine/Cetylpyridinium/Menthol Lozenge MUCMEM PRN ×2 (13:44→16:38)
[2020-02-24 13:52] LABS: BASE EXCESS VENOUS -6.1 mmol/l ((-2)-(+3)); BICARBONATE,VENOUS 20 mmol/l (19-25); O2 DELIVERY DEVICE ROOM AIR; O2 SATURATION VENOUS 68.3 % (60-80); PCO2 VENOUS 41 mmHg (41-51); PO2 VENOUS 40 mmHg (35-42)
[2020-02-24 14:06] LABS: ANION GAP 11.3 mEq/L (7-13); CHLORIDE,CL 108 mmol/L (98-107); SODIUM,NA 139 mmol/L (136-145)
[2020-02-24] MEDS: Sodium Chloride 0.9% with KCl 1,000 ML IV SCH (14:56)
[2020-02-24] MEDS: Insulin Lispro 100 Units/ML 3 ML Vial SUBCUT SCH ×2 (17:12→21:26)
[2020-02-24] MEDS: Sodium Chloride 0.9% 10 ML Syringe FLUSH PRN ×2 (19:45→21:21)
[2020-02-24] MEDS ORDERED: INSULIN GLARGINE SUBCUT SCH (21:00)
[2020-02-24] MEDS ORDERED: [UNRECOGNIZED DRUG - OTHER] SUBCUT SCH (21:00)
[2020-02-25] MEDS: Sodium Chloride 0.9% 10 ML Syringe FLUSH PRN ×6 (01:11→08:36)
[2020-02-25] MEDS: Piperacillin/Tazobactam 3.375 GM in Sodium Chloride 0.9% 100 ML IV SCH ×4 (01:12→12:35)
[2020-02-25] MEDS: Benzocaine/Cetylpyridinium/Menthol Lozenge MUCMEM PRN (01:33)
[2020-02-25] MEDS: Sodium Chloride 0.9% with KCl 1,000 ML IV SCH (03:59)
[2020-02-25] MEDS: Acetaminophen 325 MG Tab PO PRN ×2 (04:03→08:20)
[2020-02-25 07:26] LABS: ANION GAP 8.9 mEq/L (7-13); CHLORIDE,CL 108 mmol/L (98-107); SODIUM,NA 140 mmol/L (136-145)
[2020-02-25] MEDS: Pantoprazole 40 MG Vial IVPUSH SCH (08:18)
[2020-02-25] MEDS: Heparin Sodium 5,000 Units/ML Vial SUBCUT SCH (08:20)
[2020-02-25] MEDS: lamoTRIgine 100 MG Tab PO SCH (08:22)
[2020-02-25] MEDS ORDERED: Insulin Glarg,Human.Rec.Analog 100 Unit/ML SUBCUT SCH (09:00)
--- NOTE | 2020-02-25 09:53 | PCM.DCSUM1 ---
Discharge Summary - Hospital Course Free Text/Narrative:: Talha is 25-year-old man medical history significant for type 1 diabetes who presented to the ED for evaluation of nausea, vomiting, abdominal pain, generalized weakness that started 6 hours prior to the ED visit. He was admitted and managed for DKA and probable sepsis of unclear etiology. WBC on admission was 20K lactic acid of 5.0. Chest x-ray was negative. UA was negative COVID-19 screen was negative. He was managed with DKA protocol and sepsis protocol responded to treatment. His overall condition improved. Patient was discharged in stable condition with plan to follow-up with PCP. He was strongly advised on the importance of medication compliance and he verbalized understanding. He will follow-up with PCP in 3 days. Diagnosis: Stroke: No - Discharge Data Discharge Date: 02/25/20 Discharge Disposition: Home, Self-Care 01 Condition: Good - Referral to Home Health Primary Care Physician: PCP None - Discharge Diagnosis/Problem(s) (1) Sepsis SNOMED Code(s): 62174876 ICD Code: A41.9 - SEPSIS, UNSPECIFIED ORGANISM Status: Acute Current Visit: Yes Qualifiers: Sepsis type: sepsis due to unspecified organism Acute renal failure type: unspecified - Patient Instructions Diet: Diabetic Diet Activity: As Tolerated Showering/Bathing: May Shower Notify Provider of: Fever, Increased Pain, Nausea and/or Vomiting - Discharge Plan *PRESCRIPTION DRUG MONITORING PROGRAM REVIEWED*: Not Applicable *COPY OF PRESCRIPTION DRUG MONITORING REPORT IN PATIENT CHERRI: Not Applicable Prescriptions/Med Rec: Amoxicillin/Clavulanate K [Augmentin 875-125 MG] 1 tab PO Q12H #10 tablet Nystatin [Mycostatin] 5 ml PO QID #1 bottle Home Medications: Home Meds Insulin Aspart [Novolog] 20 units SUBCUT ASDIRECTED 10/18/13 [History] Insulin Glarg,Human.Rec.Analog [Lantus Solostar] 33 unit SUBCUT BEDTIME 10/18/13 [History] lamoTRIgine 200 mg PO BID 09/20/18 [History] Amoxicillin/Clavulanate K [Augmentin 875-125 MG] 1 tab PO Q12H #10 tablet 02/25/20 [Rx] Nystatin [Mycostatin] 5 ml PO QID #1 bottle 02/25/20 [Rx] Oxygen Therapy Mode: Room Air Patient Handouts: Preventing Diabetic Ketoacidosis Referrals: PCP,None [Primary Care Provider] - - Discharge Summary/Plan Comment DC Time >30 min.: Yes Discharge Summary/Plan Comment: Low up with PCP Take insulin as prescribed Diet compliance - Patient Data Vitals - Most Recent: Last Vital Signs Temp 99.5 F 02/25/20 06:43 Pulse 76 02/25/20 04:10 Resp 20 02/25/20 04:10 BP 119/76 02/25/20 04:10 Pulse Ox 97 02/25/20 04:10 Weight - Most Recent: 139 lb 12.8 oz I&O - Last 24 hours: Intake & Output 02/24/20 02/25/20 02/25/20 22:59 06:59 14:59 Intake Total 1370 1827 813 Output Total 1334 Balance 1370 493 813 Lab Results - Last 24 hrs: Laboratory Results - last 24 hr 02/24/20 02/24/20 02/24/20 Range/Units 02:19 10:16 10:16 WBC (5.0-10.0) 10^3/uL RBC (4.6-6.2) 10^6/uL Hgb (14.0-18.0) g/dL Hct (40.0-54.0) % MCV (80-100) fL MCH (27.0-34.0) pg MCHC (33.0-35.0) g/dL Plt Count (150-450) 10^3/uL Neut % (Auto) (42.2-75.2) % Lymph % (Auto) (20.5-50.1) % [place]ws[place] % (Auto) (2-8) % Eos % (Auto) (1.0-3.0) % Baso % (Auto) (0.0-1.0) % VBG pH 7.35 (7.31-7.41) VBG pCO2 30 L (41-51) mmHg VBG pO2 64 H (35-42) mmHg VBG HCO3 16 L (19-25) mmol/l VBG O2 Saturation 92.2 H (60-80) % VBG Base Excess -7.7 L ((-2)-(+3)) mmol/l O2 Delivery Device Room air Sodium 136 (136-145) mmol/L Potassium 3.4 L (3.5-5.1) mmol/L Chloride 105 (98-107) mmol/L Carbon Dioxide 21 (21-32) mmol/L Anion Gap 13.4 H (7-13) mEq/L BUN 17 (7-18) mg/dL Creatinine 1.12 (0.70-1.30) mg/dL Est Cr Clr Drug Dosing 91.22 mL/min Estimated GFR (MDRD) > 60 Glucose 197 H (74-99) mg/dL POC Glucose (70-105) mg/dl Calcium 7.8 L (8.5-10.1) mg/dL Procalcitonin 1.35 H (<0.10) ng/mL 02/24/20 02/24/20 02/24/20 Range/Units 10:34 11:29 12:30 WBC (5.0-10.0) 10^3/uL RBC (4.6-6.2) 10^6/uL Hgb (14.0-18.0) g/dL Hct (40.0-54.0) % MCV (80-100) fL MCH (27.0-34.0) pg MCHC (33.0-35.0) g/dL Plt Count (150-450) 10^3/uL Neut % (Auto) (42.2-75.2) % Lymph % (Auto) (20.5-50.1) % Owsley % (Auto) (2-8) % Eos % (Auto) (1.0-3.0) % Baso % (Auto) (0.0-1.0) % VBG pH (7.31-7.41) VBG pCO2 (41-51) mmHg VBG pO2 (35-42) mmHg VBG HCO3 (19-25) mmol/l VBG O2 Saturation (60-80) % VBG Base Excess ((-2)-(+3)) mmol/l O2 Delivery Device Sodium (136-145) mmol/L Potassium (3.5-5.1) mmol/L Chloride (98-107) mmol/L Carbon Dioxide (21-32) mmol/L Anion Gap (7-13) mEq/L BUN (7-18) mg/dL Creatinine (0.70-1.30) mg/dL Est Cr Clr Drug Dosing mL/min Estimated GFR (MDRD) Glucose (74-99) mg/dL POC Glucose 176 H 170 H 153 H (70-105) mg/dl Calcium (8.5-10.1) mg/dL Procalcitonin (<0.10) ng/mL 02/24/20 02/24/20 02/24/20 Range/Units 13:34 13:45 13:45 WBC (5.0-10.0) 10^3/uL RBC (4.6-6.2) 10^6/uL Hgb (14.0-18.0) g/dL Hct (40.0-54.0) % MCV (80-100) fL MCH (27.0-34.0) pg MCHC (33.0-35.0) g/dL Plt Count (150-450) 10^3/uL Neut % (Auto) (42.2-75.2) % Lymph % (Auto) (20.5-50.1) % Owsley % (Auto) (2-8) % Eos % (Auto) (1.0-3.0) % Baso % (Auto) (0.0-1.0) % VBG pH 7.30 L (7.31-7.41) VBG pCO2 41 (41-51) mmHg VBG pO2 40 (35-42) mmHg VBG HCO3 20 (19-25) mmol/l VBG O2 Saturation 68.3 (60-80) % VBG Base Excess -6.1 L ((-2)-(+3)) mmol/l O2 Delivery Device Room air Sodium 139 (136-145) mmol/L Potassium 3.3 L (3.5-5.1) mmol/L Chloride 108 H (98-107) mmol/L Carbon Dioxide 23 (21-32) mmol/L Anion Gap 11.3 (7-13) mEq/L BUN 15 (7-18) mg/dL Creatinine 1.06 (0.70-1.30) mg/dL Est Cr Clr Drug Dosing 96.38 mL/min Estimated GFR (MDRD) > 60 Glucose 107 H (74-99) mg/dL POC Glucose 85 (70-105) mg/dl Calcium 8.2 L (8.5-10.1) mg/dL Procalcitonin (<0.10) ng/mL 02/24/20 02/24/20 02/25/20 Range/Units 16:21 20:30 06:40 WBC 10.1 H (5.0-10.0) 10^3/uL RBC 4.34 L (4.6-6.2) 10^6/uL Hgb 13.0 L (14.0-18.0) g/dL Hct 38.0 L (40.0-54.0) % MCV 87.6 (80-100) fL MCH 30.0 (27.0-34.0) pg MCHC 34.2 (33.0-35.0) g/dL Plt Count 203 (150-450) 10^3/uL Neut % (Auto) 66.9 (42.2-75.2) % Lymph % (Auto) 22.6 (20.5-50.1) % Ows[place] % (Auto) 9.8 H (2-8) % Eos % (Auto) 0.5 L (1.0-3.0) % Baso % (Auto) 0.2 (0.0-1.0) % VBG pH (7.31-7.41) VBG pCO2 (41-51) mmHg VBG pO2 (35-42) mmHg VBG HCO3 (19-25) mmol/l VBG O2 Saturation (60-80) % VBG Base Excess ((-2)-(+3)) mmol/l O2 Delivery Device Sodium (136-145) mmol/L Potassium (3.5-5.1) mmol/L Chloride (98-107) mmol/L Carbon Dioxide (21-32) mmol/L Anion Gap (7-13) mEq/L BUN (7-18) mg/dL Creatinine (0.70-1.30) mg/dL Est Cr Clr Drug Dosing mL/min Estimated GFR (MDRD) Glucose (74-99) mg/dL POC Glucose 168 H 291 H (70-105) mg/dl Calcium (8.5-10.1) mg/dL Procalcitonin (<0.10) ng/mL 02/25/20 02/25/20 Range/Units 06:40 07:57 WBC (5.0-10.0) 10^3/uL RBC (4.6-6.2) 10^6/uL Hgb (14.0-18.0) g/dL Hct (40.0-54.0) % MCV (80-100) fL MCH (27.0-34.0) pg MCHC (33.0-35.0) g/dL Plt Count (150-450) 10^3/uL Neut % (Auto) (42.2-75.2) % Lymph % (Auto) (20.5-50.1) % [place]ws[place] % (Auto) (2-8) % Eos % (Auto) (1.0-3.0) % Baso % (Auto) (0.0-1.0) % VBG pH (7.31-7.41) VBG pCO2 (41-51) mmHg VBG pO2 (35-42) mmHg VBG HCO3 (19-25) mmol/l VBG O2 Saturation (60-80) % VBG Base Excess ((-2)-(+3)) mmol/l O2 Delivery Device Sodium 140 (136-145) mmol/L Potassium 3.9 (3.5-5.1) mmol/L Chloride 108 H (98-107) mmol/L Carbon Dioxide 27 (21-32) mmol/L Anion Gap 8.9 (7-13) mEq/L BUN 9 (7-18) mg/dL Creatinine 0.77 (0.70-1.30) mg/dL Est Cr Clr Drug Dosing 132.68 mL/min Estimated GFR (MDRD) > 60 Glucose 162 H (74-99) mg/dL POC Glucose 138 H (70-105) mg/dl Calcium 7.6 L (8.5-10.1) mg/dL Procalcitonin (<0.10) ng/mL LAI Results - Last 24 hrs: Microbiology 02/24/20 03:21 Urine Culture - Preliminary Urine, Clean Catch NO GROWTH AFTER 1 DAY 02/23/20 22:30 Aerobic Blood Culture - Preliminary Blood - Venous - Lab Draw NO GROWTH AFTER 1 DAY Anaerobic Blood Culture - Preliminary NO GROWTH AFTER 1 DAY 02/23/20 22:22 Aerobic Blood Culture - Preliminary Blood - Venous NO GROWTH AFTER 1 DAY Anaerobic Blood Culture - Preliminary NO GROWTH AFTER 1 DAY Med Orders - Current: Current Medications Acetaminophen (Tylenol) 650 mg PO Q4H PRN PRN Reason: Pain (Mild 1-3)/fever Last Admin: 02/25/20 08:20 Dose: 650 mg Documented by: Albuterol/Ipratropium (Duoneb 3.0-0.5 Mg/3 Ml) 3 ml NEB Q4H PRN PRN Reason: shortness of breath/wheezing Benzocaine/Menthol (Cepacol Sore Throat) 1 lozenge MUCMEM Q4H PRN PRN Reason: Sore Throat Last Admin: 02/25/20 01:33 Dose: 1 lozenge Documented by: Docusate Sodium (Colace) 100 mg PO BID PRN PRN Reason: Constipation Heparin Sodium (Porcine) (Heparin Sodium) 5,000 units SUBCUT Q12HR [facility] Last Admin: 02/25/20 08:20 Dose: 5,000 units Documented by: Vancomycin HCl 1 gm/ Sodium (Chloride) 250 mls @ 167 mls/hr IV Q8H [facility] Last Admin: 02/25/20 02:16 Dose: 167 mls/hr Documented by: Piperacillin Sod/Tazobactam (Sod 3.375 gm/ Sodium Chloride) 100 mls @ 200 mls/hr IV Q6H [facility] Last Admin: 02/25/20 06:46 Dose: 200 mls/hr Documented by: Potassium Chloride/Sodium Chloride (Normal Saline With 40 Meq Kcl) 1,000 mls @ 75 mls/hr IV ASDIRECTED [facility] Last Admin: 02/25/20 03:59 Dose: 75 mls/hr Documented by: Influenza Virus Vaccine (Pharmacy To Dose - Influenza Vaccine) 1 each IM ONETIME ONE Stop: 02/27/20 21:01 Insulin Glargine (Lantus) 33 unit SUBCUT DAILY [facility] Last Admin: 02/25/20 08:18 Dose: 33 units Documented by: Insulin Human Lispro (Humalog) 0 unit SUBCUT WITHMEALSANDBED [facility]; Protocol Last Admin: 02/24/20 21:26 Dose: 6 units Documented by: Lamotrigine (Lamotrigine) 200 mg PO BID [facility] Last Admin: 02/25/20 08:22 Dose: 200 mg Documented by: Magnesium Hydroxide (Milk Of Magnesia) 30 ml PO Q12H PRN PRN Reason: Constipation Nystatin (Mycostatin) 5 ml PO QID [facility] Ondansetron HCl (Zofran) 4 mg IVPUSH Q6H PRN PRN Reason: Nausea/Vomiting Pantoprazole Sodium (Protonix Iv) 40 mg IVPUSH DAILY BUZZ Last Admin: 02/25/20 08:18 Dose: 40 mg Documented by: Sodium Chloride (Saline Flush) 10 ml FLUSH ASDIRECTED PRN PRN Reason: Keep Vein Open Last Admin: 02/25/20 08:36 Dose: 10 ml Documented by: Discontinued Medications Sodium Chloride (Normal Saline) 1,000 mls @ 999 mls/hr IV ASDIRECTED BUZZ Last Infusion: 02/24/20 02:29 Dose: Infused Documented by: Sodium Chloride (Normal Saline) 1,000 mls @ 999 mls/hr IV ASDIRECTED BUZZ Last Admin: 02/24/20 06:24 Dose: 999 mls/hr Documented by: Dextrose/Sodium Chloride (Dextrose 5%-1/2 Ns) 1,000 mls @ 250 mls/hr IV ASDIRECTED BUZZ Insulin Human Regular 100 unit (/ Sodium Chloride) 100 mls @ 31.706 mls/hr IV TITRATE BUZZ; Protocol Last Titration: 02/24/20 00:25 Dose: 0.1 units/kg/hr, 6.341 mls/hr Documented by: Dextrose/Sodium Chloride (Dextrose 5%-Normal Saline) 1,000 mls @ 250 mls/hr IV ASDIRECTED BUZZ Last Admin: 02/24/20 00:39 Dose: 250 mls/hr Documented by: Sodium Chloride (Normal Saline) 1,000 mls @ 999 mls/hr IV .BOLUS BUZZ Insulin Human Regular 100 unit (/ Sodium Chloride) 100 mls @ 31.706 mls/hr IV TITRATE BUZZ; Protocol Sodium Chloride (Normal Saline) 1,000 mls @ 250 mls/hr IV ASDIRECTED BUZZ Last Admin: 02/24/20 06:24 Dose: 250 mls/hr Documented by: Insulin Human Regular 100 unit (/ Sodium Chloride) 100 mls @ 6.3 mls/hr IV TITRATE BUZZ; Protocol Last Titration: 02/24/20 10:37 Dose: 0.63 units/kg/hr, 40 mls/hr Documented by: Dextrose/Sodium Chloride (Dextrose 5%-1/2 Ns) 1,000 mls @ 250 mls/hr IV ASDIRECTED BUZZ Last Infusion: 09/30/20 08:29 Dose: 150 mls/hr Documented by: Sodium Bicarbonate 100 meq/ (Dextrose/Water) 1,100 mls @ 100 mls/hr IV ONETIME ONE Stop: 02/24/20 19:03 Last Infusion: 02/24/20 21:19 Dose: Infused Documented by: Potassium Chloride/Dextrose/Sod Cl (D5 1/2 Ns W/ 20 Meq/L Kcl) 1,000 mls @ 150 mls/hr IV ASDIRECTED BUZZ Last Infusion: 02/24/20 13:45 Dose: 75 mls/hr Documented by: Sodium Chloride (Normal Saline) 1,000 mls @ 75 mls/hr IV ASDIRECTED BUZZ Insulin Glargine (Lantus) 30 unit SUBCUT ONETIME ONE Stop: 02/24/20 10:57 Last Admin: 02/24/20 11:26 Dose: 30 units Documented by: Metoclopramide HCl (Reglan) 10 mg IVPUSH ONETIME ONE Stop: 02/23/20 21:58 Last Admin: 02/23/20 22:02 Dose: 10 mg Documented by: Non-Formulary Medication (Insulin Glarg,Human.Rec.Analog [Lantus Solostar]) 33 unit SUBCUT BEDTIME BUZZ Ondansetron HCl (Zofran) 4 mg IVPUSH ONETIME ONE Stop: 02/23/20 22:40 Last Admin: 02/23/20 22:44 Dose: 4 mg Documented by: Pantoprazole Sodium (Protonix Iv) 40 mg IVPUSH NOW ONE Stop: 02/24/20 01:46 Last Admin: 02/24/20 02:28 Dose: Not Given Documented by: Pantoprazole Sodium (Protonix) 40 mg PO ONETIME ONE Stop: 02/24/20 01:45 Last Admin: 02/24/20 01:56 Dose: Not Given Documented by:
[2020-02-25] MEDS ORDERED: FLU Vacc QS2020-21 36MOS UP/PF 60 MCG/0.5 ML Syringe IM ONE (10:15)
[2020-02-25] MEDS: Insulin Lispro 100 Units/ML 3 ML Vial SUBCUT SCH ×2 (10:36→12:16)
[2020-02-25] MEDS: Nystatin Susp 100,000 Unit/ML 5 ML UD Cup PO SCH ×2 (11:09→12:35)
[2020-02-25 12:45] VITALS: BP 134/86; PULSE 81
== END 2020-02-25 14:00 | disposition home or self-care (01) | DRG 720 ==
LOC: DL.ED 21:17 → DL.MS 02-24
PROVIDERS: ADMIT Student in an Organized Health Care Education/Training Program; ATTEND Student in an Organized Health Care Education/Training Program
DX: A41.9 Sepsis, unspecified organism (principal); E10.10 Type 1 diabetes mellitus with ketoacidosis without coma; N17.9 Acute kidney failure, unspecified; E87.1 Hypo-osmolality and hyponatremia; Z20.828 Contact with and (suspected) exposure to other viral communicable diseases
CPT/HCPCS: 36415; 36600; 71046; 80048; 80053; 80305-QW; 81003; 82009; 82803; 82962; 83605; 83735; 84100; 84145; 84484; 85025; 87040; 87086; 87804; 90686; 93005; 96361; 96374; 96375; 99284; 99285-25; A9270-GY; C9113; J1644; J1815-GY; J2405; J2543; J2765; J3370; J3480; J7030; J7042; J7050; J7060; U0002

== ENCOUNTER 2020-07-18 05:27 | Inpatient (IN) | payer BC ==
--- NOTE | 2020-07-18 05:48 | EDM.PDOC ---
ED HPI GENERAL MEDICAL PROBLEM - General Chief Complaint: Gastrointestinal Problem Stated Complaint: THROWING UP 2 TIMES THIS MORNING, NOT ABLE TO EAT Time Seen by Provider: 07/18/20 05:48 Source of Information: Reports: Patient, RN, RN Notes Reviewed - History of Present Illness INITIAL COMMENTS - FREE TEXT/NARRATIVE: Patient is a 25-year-old male who presents to ER with complaint of no appetite for the past 2 to 3 days and vomiting x2 this morning. Patient is a type I diabetic. Patient states he has not taken his insulin in the past 2 days because he has had no appetite. Denies fever, chills, diarrhea, chest pains or shortness of breath, body aches, headache. Onset: Gradual Upper Back Pain Score (Numeric/FACES): 6 - Related Data Allergies Allergy/AdvReac Type Severity Reaction Status Date / Time No Known Allergies Allergy Verified 07/18/20 05:36 Home Meds: Home Meds Insulin Aspart [Novolog] 20 units SUBCUT ASDIRECTED 10/18/13 [History] Insulin Glarg,Human.Rec.Analog [Lantus Solostar] 33 unit SUBCUT BEDTIME 10/18/13 [History] lamoTRIgine 200 mg PO BID 09/20/18 [History] Amoxicillin/Clavulanate K [Augmentin 875-125 MG] 1 tab PO Q12H #10 tablet 02/25/20 [Rx] Nystatin [Mycostatin] 5 ml PO QID #1 bottle 02/25/20 [Rx] Past Medical History HEENT History: Reports: Impaired Vision, Other (See Below) Other HEENT History: wears glasses Cardiovascular History: Reports: None Respiratory History: Reports: None Gastrointestinal History: Reports: None Genitourinary History: Reports: Acute Renal Failure Musculoskeletal History: Reports: None Neurological History: Reports: Seizure Psychiatric History: Reports: None Endocrine/Metabolic History: Reports: Diabetes, Type I, Other (See Below) Other Endocrine/Metabolic History: on insulin at home Hematologic History: Reports: None Immunologic History: Reports: None Oncologic (Cancer) History: Reports: None Dermatologic History: Reports: None - Infectious Disease History Infectious Disease History: Reports: None - Past Surgical History Head Surgeries/Procedures: Reports: None Social & Family History - Family History Family Medical History: No Pertinent Family History Endocrine/Metabolic: Reports: IDDM - Tobacco Use Tobacco Use Status *Q: Never Tobacco User Second Hand Smoke Exposure: No - Caffeine Use Caffeine Use: Reports: None - Recreational Drug Use Recreational Drug Use: No - Living Situation & Occupation Living situation: Reports: Single, with Family Occupation: Employed ED ROS GENERAL - Review of Systems Review Of Systems: Comprehensive ROS is negative, except as noted in HPI. ED EXAM, GI/ABD - Physical Exam Exam: See Below Exam Limited By: No Limitations General Appearance: Alert, WD/WN, Mild Distress, Other (unkempt) Eyes: Bilateral: Normal Appearance, EOMI Ears: Normal External Exam, Hearing Grossly Normal Nose: Normal Inspection Throat/Mouth: Normal Inspection, Normal Voice, No Airway Compromise Head: Atraumatic, Normocephalic Neck: Normal Inspection, Supple, Non-Tender, Full Range of Motion Respiratory/Chest: No Respiratory Distress, Lungs Clear, Normal Breath Sounds, No Accessory Muscle Use, Chest Non-Tender Cardiovascular: Normal Peripheral Pulses, Regular Rate, Rhythm, No Edema, No Gallop, No JVD, No Murmur, No Rub GI/Abdominal Exam: Normal Bowel Sounds, Soft, Tender (generalized) (Male) Exam: Deferred Rectal (Males) Exam: Deferred Back Exam: Normal Inspection, Full Range of Motion, NT Extremities: Normal Inspection, Normal Range of Motion, Non-Tender, Normal Capillary Refill, No Pedal Edema Neurological: Alert, Oriented, CN II-XII Intact, Normal Cognition, Normal Gait, Normal Reflexes, No Motor/Sensory Deficits Psychiatric: Normal Affect, Normal Mood Skin Exam: Warm, Dry, Intact, Normal Color, No Rash Lymphatic: No Adenopathy Course - Vital Signs Last Recorded V/S: Last Vital Signs Temp 97.7 F 07/18/20 05:33 Pulse 104 H 07/18/20 05:33 Resp 18 07/18/20 05:33 BP 133/73 07/18/20 05:33 Pulse Ox 96 07/18/20 05:33 - Orders/Labs/Meds Orders: Active Orders 24 hr Category Date Time Status Blood Glucose Check, Bedside [RC] ONETIME Care 07/18/20 05:38 Active Blood Glucose Check, Bedside [RC] ONETIME Care 07/18/20 05:55 Ordered Chest 1V Frontal [CR] Stat Exams 07/18/20 06:17 Ordered BLOOD GAS ARTERIAL [BG] Stat Lab 07/18/20 06:17 Ordered COVID-19/FLU A+B [MOLEC] Stat Lab 07/18/20 06:17 Received CULTURE BLOOD [BC] Stat Lab 07/18/20 05:40 Ordered CULTURE BLOOD [BC] Stat Lab 07/18/20 05:45 Received DRUG SCREEN URINE BIORAD [URCHEM] Stat Lab 07/18/20 05:36 Ordered URINALYSIS W/MICROSCOPIC [UA W/MICROSCOPIC] [URIN] Stat Lab 07/18/20 05:37 Ordered Dextrose 50% in Water Med 07/18/20 05:55 Ordered 50 ml IV ASDIRECTED PRN Glucagon,Human Recombinant [GlucaGen] Med 07/18/20 05:55 Ordered 1 mg IM ASDIRECTED PRN Sodium Chloride 0.9% [Normal Saline] 1,000 ml Med 07/18/20 05:55 Ordered IV .BOLUS Blood Culture x2 Reflex Set [OM.PC] Stat Oth 07/18/20 05:40 Ordered Isolation [COMM] Routine Oth 07/18/20 06:18 Ordered Medication Orders Dextrose/Water (Dextrose 50% In Water) 50 ml IV ASDIRECTED PRN PRN Reason: Hypoglycemia Glucagon (Glucagen) 1 mg IM ASDIRECTED PRN PRN Reason: Hypoglycemia Sodium Chloride (Normal Saline) 1,000 mls @ 999 mls/hr IV .BOLUS ONE Stop: 07/18/20 06:55 Last Admin: 07/18/20 05:59 Dose: 999 mls/hr Documented by: PATRICIA Labs: Laboratory Tests 07/18/20 07/18/20 07/18/20 Range/Units 05:35 05:45 05:45 WBC 13.0 H (5.0-10.0) 10^3/uL RBC 5.38 (4.6-6.2) 10^6/uL Hgb 16.3 D (14.0-18.0) g/dL Hct 46.7 (40.0-54.0) % MCV 86.8 (80-100) fL MCH 30.3 (27.0-34.0) pg MCHC 34.9 (33.0-35.0) g/dL Plt Count 264 (150-450) 10^3/uL Neut % (Auto) 86.0 H (42.2-75.2) % Lymph % (Auto) 8.8 L (20.5-50.1) % [place] % (Auto) 4.9 (2-8) % Eos % (Auto) 0.1 L (1.0-3.0) % Baso % (Auto) 0.2 (0.0-1.0) % Sodium 129 L D (136-145) mmol/L Potassium 4.5 (3.5-5.1) mmol/L Chloride 89 L D (98-107) mmol/L Carbon Dioxide 16 L D (21-32) mmol/L Anion Gap 28.5 H (7-13) mEq/L BUN 23 H (7-18) mg/dL Creatinine 1.35 H (0.70-1.30) mg/dL Est Cr Clr Drug Dosing 76.76 mL/min Estimated GFR (MDRD) > 60 BUN/Creatinine Ratio 17.0 (No establ ref range) Glucose 369 H (74-99) mg/dL POC Glucose 388 H (70-105) mg/dl Lactic Acid (0.4-2.0) mmol/L Calcium 9.4 D (8.5-10.1) mg/dL Magnesium 1.7 L (1.8-2.4) mg/dL Total Bilirubin 1.4 H (0.2-1.0) mg/dL AST 22 (15-37) U/L ALT 32 (16-63) U/L Alkaline Phosphatase 179 H (46-116) U/L Total Protein 8.3 H (6.4-8.2) g/dL Albumin 4.3 (3.4-5.0) g/dL Globulin 4.0 Albumin/Globulin Ratio 1.1 Ethyl Alcohol < 3 (0) mg/dL Ketones Moderate-40 mg/dl 07/18/20 Range/Units 05:45 WBC (5.0-10.0) 10^3/uL RBC (4.6-6.2) 10^6/uL Hgb (14.0-18.0) g/dL Hct (40.0-54.0) % MCV (80-100) fL MCH (27.0-34.0) pg MCHC (33.0-35.0) g/dL Plt Count (150-450) 10^3/uL Neut % (Auto) (42.2-75.2) % Lymph % (Auto) (20.5-50.1) % [place] % (Auto) (2-8) % Eos % (Auto) (1.0-3.0) % Baso % (Auto) (0.0-1.0) % Sodium (136-145) mmol/L Potassium (3.5-5.1) mmol/L Chloride (98-107) mmol/L Carbon Dioxide (21-32) mmol/L Anion Gap (7-13) mEq/L BUN (7-18) mg/dL Creatinine (0.70-1.30) mg/dL Est Cr Clr Drug Dosing mL/min Estimated GFR (MDRD) BUN/Creatinine Ratio (No establ ref range) Glucose (74-99) mg/dL POC Glucose (70-105) mg/dl Lactic Acid 3.3 H* (0.4-2.0) mmol/L Calcium (8.5-10.1) mg/dL Magnesium (1.8-2.4) mg/dL Total Bilirubin (0.2-1.0) mg/dL AST (15-37) U/L ALT (16-63) U/L Alkaline Phosphatase (46-116) U/L Total Protein (6.4-8.2) g/dL Albumin (3.4-5.0) g/dL Globulin Albumin/Globulin Ratio Ethyl Alcohol (0) mg/dL Ketones Meds: Medications Generic Name Dose Route Start Last Admin Trade Name Freq PRN Reason Stop Dose Admin Dextrose/Water 50 ml 07/18/20 05:55 Dextrose 50% In Water IV ASDIRECTED PRN Hypoglycemia Glucagon 1 mg 07/18/20 05:55 Glucagen IM ASDIRECTED PRN Hypoglycemia Sodium Chloride 1,000 mls @ 999 mls/hr 07/18/20 05:55 07/18/20 05:59 Normal Saline IV 07/18/20 06:55 999 mls/hr .BOLUS ONE Administration Discontinued Medications Generic Name Dose Route Start Last Admin Trade Name Freq PRN Reason Stop Dose Admin Insulin Human Regular 10 unit 07/18/20 05:55 07/18/20 06:03 Humulin R IV 07/18/20 05:56 10 units ONETIME ONE Administration Ondansetron HCl 4 mg 07/18/20 05:55 07/18/20 05:59 Zofran IV 07/18/20 05:56 4 mg ONETIME ONE Administration - Re-Assessments/Exams Free Text/Narrative Re-Assessment/Exam: 07/18/20 06:41 Discussed patient case with Dr. Ashley who agreed to admit the patient to acute care. Departure - Departure Time of Disposition: 06:41 Disposition: Admitted As Inpatient 67 Condition: Fair Clinical Impression: Ketoacidosis Diabetes mellitus type 1 Qualifiers: Diabetes mellitus complication status: without complication Qualified Code(s): E10.9 - Type 1 diabetes mellitus without complications - Discharge Information *PRESCRIPTION DRUG MONITORING PROGRAM REVIEWED*: No *COPY OF PRESCRIPTION DRUG MONITORING REPORT IN PATIENT CHERRI: No Forms: ED Department Discharge Sepsis Event Note (ED) - Evaluation Sepsis Screening Result: No Definite Risk - Focused Exam Vital Signs: Vital Signs Temp Pulse Resp BP Pulse Ox 07/18/20 05:33 97.7 F 104 H 18 133/73 96 - My Orders Last 24 Hours: My Active Orders 07/18/20 05:36 DRUG SCREEN URINE BIORAD [URCHEM] Stat 07/18/20 05:37 URINALYSIS W/MICROSCOPIC [UA W/MICROSCOPIC] [URIN] Stat 07/18/20 05:38 Blood Glucose Check, Bedside [RC] ONETIME 07/18/20 05:40 CULTURE BLOOD [BC] Stat Blood Culture x2 Reflex Set [OM.PC] Stat 07/18/20 05:45 CULTURE BLOOD [BC] Stat 07/18/20 05:55 Blood Glucose Check, Bedside [RC] ONETIME Dextrose 50% in Water 50 ml IV ASDIRECTED PRN Glucagon,Human Recombinant [GlucaGen] 1 mg IM ASDIRECTED PRN Sodium Chloride 0.9% [Normal Saline] 1,000 ml IV .BOLUS 07/18/20 06:17 Chest 1V Frontal [CR] Stat BLOOD GAS ARTERIAL [BG] Stat COVID-19/FLU A+B [MOLEC] Stat 07/18/20 06:18 Isolation [COMM] Routine - Assessment/Plan Last 24 Hours: My Active Orders 07/18/20 05:36 DRUG SCREEN URINE BIORAD [URCHEM] Stat 07/18/20 05:37 URINALYSIS W/MICROSCOPIC [UA W/MICROSCOPIC] [URIN] Stat 07/18/20 05:38 Blood Glucose Check, Bedside [RC] ONETIME 07/18/20 05:40 CULTURE BLOOD [BC] Stat Blood Culture x2 Reflex Set [OM.PC] Stat 07/18/20 05:45 CULTURE BLOOD [BC] Stat 07/18/20 05:55 Blood Glucose Check, Bedside [RC] ONETIME Dextrose 50% in Water 50 ml IV ASDIRECTED PRN Glucagon,Human Recombinant [GlucaGen] 1 mg IM ASDIRECTED PRN Sodium Chloride 0.9% [Normal Saline] 1,000 ml IV .BOLUS 07/18/20 06:17 Chest 1V Frontal [CR] Stat BLOOD GAS ARTERIAL [BG] Stat COVID-19/FLU A+B [MOLEC] Stat 07/18/20 06:18 Isolation [COMM] Routine
[2020-07-18] MEDS ORDERED: Sodium Chloride 0.9% 1,000 ML IV ONE (05:55)
[2020-07-18] MEDS ORDERED: Insulin Regular, Human 100 Units/ML 3 ML Vial IV ONE (05:55)
[2020-07-18] MEDS ORDERED: 50% Dextrose in Water 50 ML Syringe IV PRN ×2 (05:55→17:36)
[2020-07-18] MEDS ORDERED: Glucagon,Human Recombinant 1 MG Vial IM PRN ×2 (05:55→17:36)
[2020-07-18] MEDS ORDERED: Ondansetron 4 MG/2 ML SDV IV ONE (05:55)
[2020-07-18 06:14] LABS: ANION GAP 28.5 mEq/L (7-13); CHLORIDE,CL 89 mmol/L (98-107); SODIUM,NA 129 mmol/L (136-145)
[2020-07-18 06:46] LABS: BASE EXCESS ARTERIAL -12 mmol/L ((-2)-(+3)); BICARBONATE,ARTERIAL 12.2 mmol/L (22-26); O2 DELIVERY DEVICE ROOM AIR; O2 SATURATION ARTERIAL 99 % (95-100); PCO2 ARTERIAL 25 mmHg (35-45); PO2 ARTERIAL 127 mmHg (70-100)
[2020-07-18 06:49] LABS: ALLEN TEST pos
[2020-07-18] MEDS ORDERED: Sodium Chloride 0.9% 1,000 ML IV SCH ×3 (07:00→18:30)
--- NOTE | 2020-07-18 07:07 | CR ---
PROCEDURE INFORMATION: Exam: XR Chest, 1 View Exam date and time: 07/18/2020 7:01 AM Age: 25 years old Clinical indication: Chest pain; Type not specified TECHNIQUE: Imaging protocol: XR of the chest Views: 1 view. COMPARISON: CR Chest 2V 02/23/2020 9:26 PM FINDINGS: Lungs: Unremarkable. No consolidation. Pleural spaces: Unremarkable. No pleural effusion. No pneumothorax. Heart/Mediastinum: Unremarkable. No cardiomegaly. Bones/joints: Unremarkable. IMPRESSION: No evidence for acute pulmonary disease.
[2020-07-18 07:14] LABS: CORONAVIRUS COVID-19 NAA NEGATIVE (NEGATIVE)
[2020-07-18] MEDS ORDERED: Magnesium Hydroxide 400 MG/5 ML Susp 30 ML Cup PO PRN (07:43)
[2020-07-18] MEDS ORDERED: Ondansetron 4 MG/2 ML SDV IVPUSH PRN (07:43)
[2020-07-18] MEDS ORDERED: Acetaminophen 325 MG Tab PO PRN (07:43)
--- NOTE | 2020-07-18 07:55 | PCM.HP ---
H&P History of Present Illness - General Date of Service: 07/18/20 Admit Problem/Dx: Admission Diagnosis/Problem Admission Diagnosis/Problem DKA Source of Information: Patient History Limitations: Reports: No Limitations - History of Present Illness Initial Comments - Free Text/Narative: Jose Antonio is a 25-year-old male with history of type 1 diabetes on insulin who presented to the ED for evaluation of nausea and vomiting onset this morning. Per patient for the past 2 days she has had poor oral intake and has not been eating well. He woke up this morning and had 2 episodes of emesis. Vomitus clear liquid. Denies hematemesis. He denies abdominal pain, diarrhea, co nstipation. Denies recent alcohol use. Endorsed to dehydration. Denies fever, chills. No cough. Denies dysuria, increased urinary frequency. In the ED vitals within normal limits. Labs significant for WBC 13, ABG: pH 7.31, bicarb 12.2. Sodium 129, creatinine 1.35, lactic acid 3.3, magnesium 1.2. Anion gap 28.8. Alk phos 129. Urine positive for moderate ketones. Chest x- ray negative received 1 L of NS bolus and regular insulin 10 units IV push. Admission requested for further management. Onset of Symptoms: Reports: Sudden Duration of Symptoms: Reports: Hour(s): Location: Reports: Abdomen Quality: Reports: Ache Severity: Mild Improves with: Reports: None Worsens with: Reports: None Associated Symptoms: Reports: No Other Symptoms Upper Back Pain Score (Numeric/FACES): 6 - Related Data Allergies/Adverse Reactions: Allergies Allergy/AdvReac Type Severity Reaction Status Date / Time No Known Allergies Allergy Verified 07/18/20 07:55 Home Medications: Home Meds Insulin Aspart [Novolog] 0 units SUBCUT ASDIRECTED 10/18/13 [History] Insulin Glarg,Human.Rec.Analog [Lantus Solostar] 33 unit SUBCUT BEDTIME 10/18/13 [History] lamoTRIgine 200 mg PO BID 09/20/18 [History] Past Medical History HEENT History: Reports: Impaired Vision, Other (See Below) Other HEENT History: wears glasses Cardiovascular History: Reports: None Respiratory History: Reports: None Gastrointestinal History: Reports: None Genitourinary History: Reports: Acute Renal Failure Musculoskeletal History: Reports: None Neurological History: Reports: Seizure Psychiatric History: Reports: None Endocrine/Metabolic History: Reports: Diabetes, Type I, Other (See Below) Other Endocrine/Metabolic History: on insulin at home Hematologic History: Reports: None Immunologic History: Reports: None Oncologic (Cancer) History: Reports: None Dermatologic History: Reports: None - Infectious Disease History Infectious Disease History: Reports: None - Past Surgical History Head Surgeries/Procedures: Reports: None Social & Family History - Family History Family Medical History: No Pertinent Family History Endocrine/Metabolic: Reports: IDDM - Tobacco Use Tobacco Use Status *Q: Never Tobacco User Second Hand Smoke Exposure: No - Caffeine Use Caffeine Use: Reports: None - Recreational Drug Use Recreational Drug Use: No - Living Situation & Occupation Living situation: Reports: Single, with Family Occupation: Employed H&P Review of Systems - Review of Systems: Review Of Systems: See Below (As per HPI) General: Reports: No Symptoms HEENT: Reports: No Symptoms Pulmonary: Reports: No Symptoms Cardiovascular: Reports: No Symptoms Gastrointestinal: Reports: No Symptoms Genitourinary: Reports: No Symptoms Musculoskeletal: Reports: No Symptoms Skin: Reports: No Symptoms Psychiatric: Reports: No Symptoms Neurological: Reports: No Symptoms Hematologic/Lymphatic: Reports: No Symptoms Immunologic: Reports: No Symptoms Exam - Exam Exam: See Below (As per HPI) - Vital Signs Vital Signs: Last Vital Signs Temp 97.7 F 07/18/20 05:33 Pulse 104 H 07/18/20 05:33 Resp 18 07/18/20 05:33 BP 133/73 07/18/20 05:33 Pulse Ox 96 07/18/20 05:33 Weight: 141 lb 12.8 oz - Exam General: Alert, Oriented, 4 HEENT: PERRLA, Hearing Intact, Mucosa Moist & [place], Nares Patent, Normal Nasal Septum, Posterior Pharynx Clear, Conjunctiva Clear, EOMI, EACs Clear, TMs Clear Neck: Supple, Trachea Midline, 2 Lungs: Clear to Auscultation, Normal Respiratory Effort Cardiovascular: Regular Rate, Regular Rhythm GI/Abdominal Exam: Normal Bowel Sounds, Soft, Non-Tender, No Organomegaly, No Distention, No Abnormal Bruit, No Mass, Pelvis Stable (Male) Exam: No Hernia, Normal Inspection, Normal Prostate, Circumcised Rectal (Males) Exam: Normal Exam, Normal Rectal Tone, Prostate Normal Back Exam: Normal Inspection, Full Range of Motion, NT Extremities: Normal Inspection, Normal Range of Motion, Non-Tender, No Pedal Edema, Normal Capillary Refill Skin: Warm, Dry, Intact Neurological: Cranial Nerves Intact, Reflexes Equal Bilateral Neuro Extensive - Mental Status: Alert, Oriented x3, Normal Mood/Affect, Normal Cognition Neuro Extensive - Motor, Sensory, Reflexes: CN II-XII Intact, Normal Gait, Normal Reflexes Psychiatric: Alert, Normal Affect, Normal Mood - Patient Data Lab Results Last 24 hrs: Laboratory Results - last 24 hr 07/18/20 07/18/20 07/18/20 Range/Units 05:35 05:45 05:45 WBC 13.0 H (5.0-10.0) 10^3/uL RBC 5.38 (4.6-6.2) 10^6/uL Hgb 16.3 D (14.0-18.0) g/dL Hct 46.7 (40.0-54.0) % MCV 86.8 (80-100) fL MCH 30.3 (27.0-34.0) pg MCHC 34.9 (33.0-35.0) g/dL Plt Count 264 (150-450) 10^3/uL Neut % (Auto) 86.0 H (42.2-75.2) % Lymph % (Auto) 8.8 L (20.5-50.1) % [place] % (Auto) 4.9 (2-8) % Eos % (Auto) 0.1 L (1.0-3.0) % Baso % (Auto) 0.2 (0.0-1.0) % ABG pH (7.35-7.45) ABG pCO2 (35-45) mmHg ABG pO2 (70-100) mmHg ABG HCO3 (22-26) mmol/L ABG O2 Saturation (95-100) % ABG Base Excess ((-2)-(+3)) mmol/L Alexis Test O2 Delivery Device Sodium 129 L D (136-145) mmol/L Potassium 4.5 (3.5-5.1) mmol/L Chloride 89 L D (98-107) mmol/L Carbon Dioxide 16 L D (21-32) mmol/L Anion Gap 28.5 H (7-13) mEq/L BUN 23 H (7-18) mg/dL Creatinine 1.35 H (0.70-1.30) mg/dL Est Cr Clr Drug Dosing 76.76 mL/min Estimated GFR (MDRD) > 60 BUN/Creatinine Ratio 17.0 (No establ ref range) Glucose 369 H (74-99) mg/dL POC Glucose 388 H (70-105) mg/dl Lactic Acid (0.4-2.0) mmol/L Calcium 9.4 D (8.5-10.1) mg/dL Magnesium 1.7 L (1.8-2.4) mg/dL Total Bilirubin 1.4 H (0.2-1.0) mg/dL AST 22 (15-37) U/L ALT 32 (16-63) U/L Alkaline Phosphatase 179 H (46-116) U/L Total Protein 8.3 H (6.4-8.2) g/dL Albumin 4.3 (3.4-5.0) g/dL Globulin 4.0 Albumin/Globulin Ratio 1.1 Ethyl Alcohol < 3 (0) mg/dL Ketones Moderate-40 mg/dl Influenza Type A RNA (NEGATIVE) Influenza Type B RNA (NEGATIVE) SARS-CoV-2 RNA (LES) (NEGATIVE) 07/18/20 07/18/20 07/18/20 Range/Units 05:45 06:17 06:40 WBC (5.0-10.0) 10^3/uL RBC (4.6-6.2) 10^6/uL Hgb (14.0-18.0) g/dL Hct (40.0-54.0) % MCV (80-100) fL MCH (27.0-34.0) pg MCHC (33.0-35.0) g/dL Plt Count (150-450) 10^3/uL Neut % (Auto) (42.2-75.2) % Lymph % (Auto) (20.5-50.1) % [place] % (Auto) (2-8) % Eos % (Auto) (1.0-3.0) % Baso % (Auto) (0.0-1.0) % ABG pH 7.31 L (7.35-7.45) ABG pCO2 25 L (35-45) mmHg ABG pO2 127 H (70-100) mmHg ABG HCO3 12.2 L (22-26) mmol/L ABG O2 Saturation 99 (95-100) % ABG Base Excess -12 L ((-2)-(+3)) mmol/L Alexis Test pos O2 Delivery Device Room air Sodium (136-145) mmol/L Potassium (3.5-5.1) mmol/L Chloride (98-107) mmol/L Carbon Dioxide (21-32) mmol/L Anion Gap (7-13) mEq/L BUN (7-18) mg/dL Creatinine (0.70-1.30) mg/dL Est Cr Clr Drug Dosing mL/min Estimated GFR (MDRD) BUN/Creatinine Ratio (No establ ref range) Glucose (74-99) mg/dL POC Glucose (70-105) mg/dl Lactic Acid 3.3 H* (0.4-2.0) mmol/L Calcium (8.5-10.1) mg/dL Magnesium (1.8-2.4) mg/dL Total Bilirubin (0.2-1.0) mg/dL AST (15-37) U/L ALT (16-63) U/L Alkaline Phosphatase (46-116) U/L Total Protein (6.4-8.2) g/dL Albumin (3.4-5.0) g/dL Globulin Albumin/Globulin Ratio Ethyl Alcohol (0) mg/dL Ketones Influenza Type A RNA Negative (NEGATIVE) Influenza Type B RNA Negative (NEGATIVE) SARS-CoV-2 RNA (LES) Negative (NEGATIVE) 07/18/20 Range/Units 06:41 WBC (5.0-10.0) 10^3/uL RBC (4.6-6.2) 10^6/uL Hgb (14.0-18.0) g/dL Hct (40.0-54.0) % MCV (80-100) fL MCH (27.0-34.0) pg MCHC (33.0-35.0) g/dL Plt Count (150-450) 10^3/uL Neut % (Auto) (42.2-75.2) % Lymph % (Auto) (20.5-50.1) % [place] % (Auto) (2-8) % Eos % (Auto) (1.0-3.0) % Baso % (Auto) (0.0-1.0) % ABG pH (7.35-7.45) ABG pCO2 (35-45) mmHg ABG pO2 (70-100) mmHg ABG HCO3 (22-26) mmol/L ABG O2 Saturation (95-100) % ABG Base Excess ((-2)-(+3)) mmol/L Alexis Test O2 Delivery Device Sodium (136-145) mmol/L Potassium (3.5-5.1) mmol/L Chloride (98-107) mmol/L Carbon Dioxide (21-32) mmol/L Anion Gap (7-13) mEq/L BUN (7-18) mg/dL Creatinine (0.70-1.30) mg/dL Est Cr Clr Drug Dosing mL/min Estimated GFR (MDRD) BUN/Creatinine Ratio (No establ ref range) Glucose (74-99) mg/dL POC Glucose 280 H (70-105) mg/dl Lactic Acid (0.4-2.0) mmol/L Calcium (8.5-10.1) mg/dL Magnesium (1.8-2.4) mg/dL Total Bilirubin (0.2-1.0) mg/dL AST (15-37) U/L ALT (16-63) U/L Alkaline Phosphatase (46-116) U/L Total Protein (6.4-8.2) g/dL Albumin (3.4-5.0) g/dL Globulin Albumin/Globulin Ratio Ethyl Alcohol (0) mg/dL Ketones Influenza Type A RNA (NEGATIVE) Influenza Type B RNA (NEGATIVE) SARS-CoV-2 RNA (LES) (NEGATIVE) Result Diagrams: 07/18/20 05:45 07/18/20 05:45 - Problem List (1) Leukocytosis SNOMED Code(s): 364934422, 128730562 ICD Code: D72.829 - ELEVATED WHITE BLOOD CELL COUNT, UNSPECIFIED Status: Acute Current Visit: Yes (2) Hyponatremia SNOMED Code(s): 00577280 ICD Code: E87.1 - HYPO-OSMOLALITY AND HYPONATREMIA Status: Acute Current Visit: Yes (3) Elevated alkaline phosphatase level SNOMED Code(s): 266956389 ICD Code: R74.8 - ABNORMAL LEVELS OF OTHER SERUM ENZYMES Status: Acute Current Visit: Yes (4) SIRS without infection or organ dysfunction SNOMED Code(s): 906691197076032 ICD Code: R65.10 - SIRS OF NON-INFECTIOUS ORIGIN W/O ACUTE ORGAN DYSFUNCTION Status: Acute Current Visit: Yes Problem List Initiated/Reviewed/Updated: Yes Orders Last 24hrs: Active Orders 24 hr Category Date Time Status Admission Diagnosis [ADT] Stat ADT 07/18/20 06:42 Ordered Admission Status [Patient Status] [ADT] Routine ADT 07/18/20 06:42 Active Ambulate [RC] ASDIRECTED Care 07/18/20 07:43 Ordered Blood Glucose Check, Bedside [RC] ONETIME Care 07/18/20 05:38 Active Blood Glucose Check, Bedside [RC] ONETIME Care 07/18/20 05:55 Active Blood Glucose Check, Bedside [RC] Q1HR Care 07/18/20 07:43 Active Intake and Output [RC] QSHIFT Care 07/18/20 07:44 Ordered Notify Provider Vital Signs [RC] ASDIRECTED Care 07/18/20 07:44 Ordered Oxygen Therapy [RC] PRN Care 07/18/20 07:42 Ordered Oxygen Therapy [RC] PRN Care 07/18/20 07:43 Ordered VTE/DVT Education [RC] PER UNIT ROUTINE Care 07/18/20 07:42 Ordered VTE/DVT Education [RC] PER UNIT ROUTINE Care 07/18/20 07:43 Ordered Vital Signs [RC] Q4H Care 07/18/20 07:42 Ordered Vital Signs [RC] Q4H Care 07/18/20 07:43 Ordered Nothing per Oral Now Diet [DIET] Diet 07/18/20 Breakfast Ordered BASIC METABOLIC PANEL,BMP [CHEM] Q4H Lab 07/18/20 10:00 Ordered BASIC METABOLIC PANEL,BMP [CHEM] Q4H Lab 07/18/20 14:00 Ordered BASIC METABOLIC PANEL,BMP [CHEM] Q4H Lab 07/18/20 18:00 Ordered BASIC METABOLIC PANEL,BMP [CHEM] Q4H Lab 07/18/20 22:00 Ordered BLOOD GAS VENOUS [BG] Routine Lab 07/18/20 10:00 Ordered CBC W/O DIFF,HEMOGRAM [HEME] AM Lab 07/19/20 05:11 Ordered CULTURE BLOOD [BC] Stat Lab 07/18/20 05:45 Received CULTURE BLOOD [BC] Stat Lab 07/18/20 06:24 Received DRUG SCREEN URINE BIORAD [URCHEM] Stat Lab 07/18/20 05:36 Ordered HEPATIC FUNCTION PANEL,HFP [CHEM] AM Lab 07/19/20 05:11 Ordered LACTIC ACID [CHEM] Routine Lab 07/18/20 10:00 Ordered MAGNESIUM [CHEM] Routine Lab 07/18/20 07:43 Ordered PHOSPHORUS [CHEM] Routine Lab 07/18/20 07:43 Ordered URINALYSIS W/MICROSCOPIC [UA W/MICROSCOPIC] [URIN] Stat Lab 07/18/20 05:37 Ordered Acetaminophen [TylenoL] Med 07/18/20 07:43 Ordered 650 mg PO Q6H PRN Dextrose 50% in Water Med 07/18/20 05:55 Active 50 ml IV ASDIRECTED PRN Glucagon,Human Recombinant [GlucaGen] Med 07/18/20 05:55 Active 1 mg IM ASDIRECTED PRN Heparin Sodium Med 07/18/20 09:00 Ordered 5,000 units SUBCUT Q12HR Insulin Regular in 0.9 % NACL [Myxredlin in NS 100 UNIT Med 07/18/20 08:00 Ordered /100 ML] 100 unit in 100 ml IV TITRATE Magnesium Hydroxide [Milk of Magnesia] Med 07/18/20 07:43 Ordered 30 ml PO Q12H PRN Ondansetron [Zofran] Med 07/18/20 07:43 Ordered 4 mg IVPUSH Q6H PRN Sodium Chloride 0.9% [Normal Saline] 1,000 ml Med 07/18/20 07:00 Active IV ASDIRECTED Sodium Chloride 0.9% [Normal Saline] 1,000 ml Med 07/18/20 08:00 Ordered IV ASDIRECTED Blood Culture x2 Reflex Set [OM.PC] Stat Oth 07/18/20 05:40 Ordered Isolation [COMM] Routine Oth 07/18/20 06:18 Active Resuscitation Status Routine Resus Stat 07/18/20 07:42 Ordered Medication Orders Acetaminophen (Tylenol) 650 mg PO Q6H PRN PRN Reason: Pain (Mild 1-3)/fever Dextrose/Water (Dextrose 50% In Water) 50 ml IV ASDIRECTED PRN PRN Reason: Hypoglycemia Glucagon (Glucagen) 1 mg IM ASDIRECTED PRN PRN Reason: Hypoglycemia Heparin Sodium (Porcine) (Heparin Sodium) 5,000 units SUBCUT Q12HR BUZZ Sodium Chloride (Normal Saline) 1,000 mls @ 500 mls/hr IV ASDIRECTED [facility] Last Admin: 07/18/20 06:54 Dose: 500 mls/hr Documented by: FAY Sodium Chloride (Normal Saline) 1,000 mls @ 250 mls/hr IV ASDIRECTED [facility] Insulin Regular in 0.9 % NACL (Myxredlin In Ns 100 Unit/100 Ml) 100 unit in 100 mls @ 6.432 mls/hr IV TITRATE BUZZ; Protocol Magnesium Hydroxide (Milk Of Magnesia) 30 ml PO Q12H PRN PRN Reason: Constipation Ondansetron HCl (Zofran) 4 mg IVPUSH Q6H PRN PRN Reason: Nausea/Vomiting Assessment/Plan Comment:: #Diabetic ketoacidosis Patient presented with nausea vomiting Serum glucose elevated, pH 7.31, anion gap elevated Admit to medical floor IV fluid Start DKA protocol VBG every 4 hours BMP every 4 hours We will transition to subcut insulin when DKA resolves #Nausea vomiting due to above Zofran as needed #Hyponatremia This is due to hyperglycemia. I expect resolution after correction of hyperglycemia IV fluid Follow-up #Lactic acidosis. This is due to DKA IV fluid Follow-up #SIRS without evidence of infection IV fluid Follow-up #REKHA Creatinine 1.35 IV fluids BMP daily for #Hypomagnesemia Replace IV
[2020-07-18] MEDS: Heparin Sodium 5,000 Units/ML Vial SUBCUT SCH ×2 (09:28→20:46)
[2020-07-18 10:08] LABS: BASE EXCESS VENOUS -9.5 mmol/l ((-2)-(+3)); BICARBONATE,VENOUS 16 mmol/l (19-25); O2 DELIVERY DEVICE ROOM AIR; O2 SATURATION VENOUS 88.4 % (60-80); PCO2 VENOUS 34 mmHg (41-51); PH,VENOUS 7.29 (7.31-7.41); PO2 VENOUS 66 mmHg (35-42)
[2020-07-18] MEDS: Dextrose 5%-0.9% NaCl 1,000 ML IV SCH ×2 (10:23→16:58)
[2020-07-18 10:25] LABS: CHLORIDE,CL 99 mmol/L (98-107); SODIUM,NA 135 mmol/L (136-145)
[2020-07-18] MEDS ORDERED: Sodium Bicarbonate 100 MEQ in Dextrose 5% in Water 1,000 ML IV ONE ×2 (11:00)
[2020-07-18] MEDS ORDERED: Magnesium Sulfate/Water 2 GM/50 ML BAG IV ONE (11:15)
[2020-07-18 14:25] LABS: BASE EXCESS VENOUS -2.9 mmol/l ((-2)-(+3)); BICARBONATE,VENOUS 21 mmol/l (19-25); O2 DELIVERY DEVICE ROOM AIR; O2 SATURATION VENOUS 90.8 % (60-80); PCO2 VENOUS 37 mmHg (41-51); PH,VENOUS 7.38 (7.31-7.41); PO2 VENOUS 70 mmHg (35-42)
[2020-07-18 14:35] LABS: ANION GAP 15.6 mEq/L (7-13); CHLORIDE,CL 101 mmol/L (98-107); SODIUM,NA 135 mmol/L (136-145)
[2020-07-18 17:07] LABS: BASE EXCESS VENOUS 0.3 mmol/l ((-2)-(+3)); BICARBONATE,VENOUS 25 mmol/l (19-25); O2 DELIVERY DEVICE ROOM AIR; O2 SATURATION VENOUS 69.2 % (60-80); PCO2 VENOUS 41 mmHg (41-51); PO2 VENOUS 47 mmHg (35-42)
[2020-07-18 17:22] LABS: CHLORIDE,CL 103 mmol/L (98-107); SODIUM,NA 138 mmol/L (136-145)
[2020-07-18] MEDS ORDERED: Insulin Glarg,Human.Rec.Analog 100 Unit/ML SUBCUT ONE (17:36)
[2020-07-18] MEDS: NS + KCl 20mEq/L 1,000 ML IV SCH (20:45)
[2020-07-18] MEDS: Insulin Lispro 100 Units/ML 3 ML Vial SUBCUT SCH (20:55)
[2020-07-19] MEDS: NS + KCl 20mEq/L 1,000 ML IV SCH (06:55)
[2020-07-19 07:15] LABS: ANION GAP 15.9 mEq/L (7-13); CHLORIDE,CL 100 mmol/L (98-107); SODIUM,NA 137 mmol/L (136-145)
[2020-07-19] MEDS: Heparin Sodium 5,000 Units/ML Vial SUBCUT SCH (09:35)
[2020-07-19] MEDS: Insulin Lispro 100 Units/ML 3 ML Vial SUBCUT SCH ×2 (09:38→13:27)
[2020-07-19] MEDS ORDERED: lamoTRIgine 100 MG Tab PO SCH (11:00)
[2020-07-19 11:23] VITALS: BP 110/67; PULSE 93
--- NOTE | 2020-07-19 11:39 | PCM.DCSUM1 ---
Discharge Summary - Hospital Course Free Text/Narrative:: Jose Antonio is a 25-year-old male with history of type 1 diabetes on insulin who presented to the ED for evaluation of nausea and vomiting onset this morning. He was admitted for DKA. He was managed with DKA protocol. DKA resolved. He was transitioned to supplement insulin. His symptoms resolved. He was discharged home in stable condition. Patient was advised on importance of medication and diet compliance and he verbalized understanding. He was also seen by dietitian and appropriate education on diet given. Diagnosis: Stroke: No - Discharge Data Discharge Date: 07/19/20 Discharge Disposition: Home, Self-Care 01 Condition: Good - Referral to Home Health Primary Care Physician: Chapo Buchanan MD - Discharge Diagnosis/Problem(s) (1) Leukocytosis SNOMED Code(s): 837485815, 975037591 ICD Code: D72.829 - ELEVATED WHITE BLOOD CELL COUNT, UNSPECIFIED Status: Acute Current Visit: Yes (2) Hyponatremia SNOMED Code(s): 90472158 ICD Code: E87.1 - HYPO-OSMOLALITY AND HYPONATREMIA Status: Acute Current Visit: Yes (3) Elevated alkaline phosphatase level SNOMED Code(s): 082654936 ICD Code: R74.8 - ABNORMAL LEVELS OF OTHER SERUM ENZYMES Status: Acute Current Visit: Yes (4) SIRS without infection or organ dysfunction SNOMED Code(s): 450478208083389 ICD Code: R65.10 - SIRS OF NON-INFECTIOUS ORIGIN W/O ACUTE ORGAN DYSFUNCTION Status: Acute Current Visit: Yes - Patient Instructions Diet: Diabetic Diet Activity: As Tolerated Driving: May Drive Today Showering/Bathing: May Shower Notify Provider of: Fever, Increased Pain, Nausea and/or Vomiting - Discharge Plan *PRESCRIPTION DRUG MONITORING PROGRAM REVIEWED*: No *COPY OF PRESCRIPTION DRUG MONITORING REPORT IN PATIENT CHERRI: No Home Medications: Home Meds Insulin Aspart [Novolog] 0 units SUBCUT ASDIRECTED 10/18/13 [History] Insulin Glarg,Human.Rec.Analog [Lantus Solostar] 33 unit SUBCUT BEDTIME 10/18/13 [History] lamoTRIgine 200 mg PO BID 09/20/18 [History] Oxygen Therapy Mode: Room Air Patient Handouts: Diabetic Ketoacidosis, Preventing Diabetic Ketoacidosis Referrals: Chapo Buchanan MD [Primary Care Provider] - - Discharge Summary/Plan Comment DC Time >30 min.: Yes - General Info Date of Service: 07/19/20 Admission Dx/Problem (Free Text: Admission Diagnosis/Problem Admission Diagnosis/Problem DKA Functional Status: Reports: Pain Controlled - Review of Systems General: Reports: No Symptoms HEENT: Reports: No Symptoms Pulmonary: Reports: No Symptoms Cardiovascular: Reports: No Symptoms Gastrointestinal: Reports: No Symptoms Genitourinary: Reports: No Symptoms Musculoskeletal: Reports: No Symptoms Skin: Reports: No Symptoms Neurological: Reports: No Symptoms Psychiatric: Reports: No Symptoms - Patient Data Vitals - Most Recent: Last Vital Signs Temp 98.2 F 07/19/20 08:00 Pulse 93 07/19/20 08:00 Resp 16 07/19/20 08:00 BP 110/67 07/19/20 08:00 Pulse Ox 98 07/19/20 08:00 Weight - Most Recent: 132 lb 12.8 oz I&O - Last 24 hours: Intake & Output 07/18/20 07/19/20 07/19/20 22:59 06:59 14:59 Intake Total 606 260 Balance 606 260 Lab Results - Last 24 hrs: Laboratory Results - last 24 hr 07/18/20 07/18/20 07/18/20 Range/Units 10:12 11:19 12:16 WBC (5.0-10.0) 10^3/uL RBC (4.6-6.2) 10^6/uL Hgb (14.0-18.0) g/dL Hct (40.0-54.0) % MCV (80-100) fL MCH (27.0-34.0) pg MCHC (33.0-35.0) g/dL Plt Count (150-450) 10^3/uL VBG pH (7.31-7.41) VBG pCO2 (41-51) mmHg VBG pO2 (35-42) mmHg VBG HCO3 (19-25) mmol/l VBG O2 Saturation (60-80) % VBG Base Excess ((-2)-(+3)) mmol/l O2 Delivery Device Sodium (136-145) mmol/L Potassium (3.5-5.1) mmol/L Chloride (98-107) mmol/L Carbon Dioxide (21-32) mmol/L Anion Gap (7-13) mEq/L BUN (7-18) mg/dL Creatinine (0.70-1.30) mg/dL Est Cr Clr Drug Dosing mL/min Estimated GFR (MDRD) Glucose (74-99) mg/dL POC Glucose 170 H 165 H 172 H (70-105) mg/dl Calcium (8.5-10.1) mg/dL Magnesium (1.8-2.4) mg/dL Total Bilirubin (0.2-1.0) mg/dL Direct Bilirubin (0.0-0.2) mg/dL Indirect Bilirubin AST (15-37) U/L ALT (16-63) U/L Alkaline Phosphatase (46-116) U/L Total Protein (6.4-8.2) g/dL Albumin (3.4-5.0) g/dL Globulin Albumin/Globulin Ratio 07/18/20 07/18/20 07/18/20 Range/Units 13:19 14:15 14:15 WBC (5.0-10.0) 10^3/uL RBC (4.6-6.2) 10^6/uL Hgb (14.0-18.0) g/dL Hct (40.0-54.0) % MCV (80-100) fL MCH (27.0-34.0) pg MCHC (33.0-35.0) g/dL Plt Count (150-450) 10^3/uL VBG pH 7.38 (7.31-7.41) VBG pCO2 37 L (41-51) mmHg VBG pO2 70 H (35-42) mmHg VBG HCO3 21 (19-25) mmol/l VBG O2 Saturation 90.8 H (60-80) % VBG Base Excess -2.9 L ((-2)-(+3)) mmol/l O2 Delivery Device Room air Sodium 135 L (136-145) mmol/L Potassium 3.6 (3.5-5.1) mmol/L Chloride 101 (98-107) mmol/L Carbon Dioxide 22 (21-32) mmol/L Anion Gap 15.6 H (7-13) mEq/L BUN 18 (7-18) mg/dL Creatinine 0.86 (0.70-1.30) mg/dL Est Cr Clr Drug Dosing 112.85 mL/min Estimated GFR (MDRD) > 60 Glucose 153 H (74-99) mg/dL POC Glucose 152 H (70-105) mg/dl Calcium 7.9 L (8.5-10.1) mg/dL Magnesium 2.2 (1.8-2.4) mg/dL Total Bilirubin (0.2-1.0) mg/dL Direct Bilirubin (0.0-0.2) mg/dL Indirect Bilirubin AST (15-37) U/L ALT (16-63) U/L Alkaline Phosphatase (46-116) U/L Total Protein (6.4-8.2) g/dL Albumin (3.4-5.0) g/dL Globulin Albumin/Globulin Ratio 07/18/20 07/18/20 07/18/20 Range/Units 14:17 15:05 16:19 WBC (5.0-10.0) 10^3/uL RBC (4.6-6.2) 10^6/uL Hgb (14.0-18.0) g/dL Hct (40.0-54.0) % MCV (80-100) fL MCH (27.0-34.0) pg MCHC (33.0-35.0) g/dL Plt Count (150-450) 10^3/uL VBG pH (7.31-7.41) VBG pCO2 (41-51) mmHg VBG pO2 (35-42) mmHg VBG HCO3 (19-25) mmol/l VBG O2 Saturation (60-80) % VBG Base Excess ((-2)-(+3)) mmol/l O2 Delivery Device Sodium (136-145) mmol/L Potassium (3.5-5.1) mmol/L Chloride (98-107) mmol/L Carbon Dioxide (21-32) mmol/L Anion Gap (7-13) mEq/L BUN (7-18) mg/dL Creatinine (0.70-1.30) mg/dL Est Cr Clr Drug Dosing mL/min Estimated GFR (MDRD) Glucose (74-99) mg/dL POC Glucose 159 H 149 H 106 H (70-105) mg/dl Calcium (8.5-10.1) mg/dL Magnesium (1.8-2.4) mg/dL Total Bilirubin (0.2-1.0) mg/dL Direct Bilirubin (0.0-0.2) mg/dL Indirect Bilirubin AST (15-37) U/L ALT (16-63) U/L Alkaline Phosphatase (46-116) U/L Total Protein (6.4-8.2) g/dL Albumin (3.4-5.0) g/dL Globulin Albumin/Globulin Ratio 07/18/20 07/18/20 07/18/20 Range/Units 17:02 17:02 17:29 WBC (5.0-10.0) 10^3/uL RBC (4.6-6.2) 10^6/uL Hgb (14.0-18.0) g/dL Hct (40.0-54.0) % MCV (80-100) fL MCH (27.0-34.0) pg MCHC (33.0-35.0) g/dL Plt Count (150-450) 10^3/uL VBG pH 7.40 (7.31-7.41) VBG pCO2 41 (41-51) mmHg VBG pO2 47 H (35-42) mmHg VBG HCO3 25 (19-25) mmol/l VBG O2 Saturation 69.2 (60-80) % VBG Base Excess 0.3 ((-2)-(+3)) mmol/l O2 Delivery Device Room air Sodium 138 (136-145) mmol/L Potassium 3.0 L (3.5-5.1) mmol/L Chloride 103 (98-107) mmol/L Carbon Dioxide 26 (21-32) mmol/L Anion Gap 12.0 (7-13) mEq/L BUN 16 (7-18) mg/dL Creatinine 0.86 (0.70-1.30) mg/dL Est Cr Clr Drug Dosing 112.85 mL/min Estimated GFR (MDRD) > 60 Glucose 70 L (74-99) mg/dL POC Glucose 59 L (70-105) mg/dl Calcium 7.8 L (8.5-10.1) mg/dL Magnesium (1.8-2.4) mg/dL Total Bilirubin (0.2-1.0) mg/dL Direct Bilirubin (0.0-0.2) mg/dL Indirect Bilirubin AST (15-37) U/L ALT (16-63) U/L Alkaline Phosphatase (46-116) U/L Total Protein (6.4-8.2) g/dL Albumin (3.4-5.0) g/dL Globulin Albumin/Globulin Ratio 07/18/20 07/18/20 07/18/20 Range/Units 17:51 18:27 20:44 WBC (5.0-10.0) 10^3/uL RBC (4.6-6.2) 10^6/uL Hgb (14.0-18.0) g/dL Hct (40.0-54.0) % MCV (80-100) fL MCH (27.0-34.0) pg MCHC (33.0-35.0) g/dL Plt Count (150-450) 10^3/uL VBG pH (7.31-7.41) VBG pCO2 (41-51) mmHg VBG pO2 (35-42) mmHg VBG HCO3 (19-25) mmol/l VBG O2 Saturation (60-80) % VBG Base Excess ((-2)-(+3)) mmol/l O2 Delivery Device Sodium (136-145) mmol/L Potassium (3.5-5.1) mmol/L Chloride (98-107) mmol/L Carbon Dioxide (21-32) mmol/L Anion Gap (7-13) mEq/L BUN (7-18) mg/dL Creatinine (0.70-1.30) mg/dL Est Cr Clr Drug Dosing mL/min Estimated GFR (MDRD) Glucose (74-99) mg/dL POC Glucose 66 L 120 H 147 H (70-105) mg/dl Calcium (8.5-10.1) mg/dL Magnesium (1.8-2.4) mg/dL Total Bilirubin (0.2-1.0) mg/dL Direct Bilirubin (0.0-0.2) mg/dL Indirect Bilirubin AST (15-37) U/L ALT (16-63) U/L Alkaline Phosphatase (46-116) U/L Total Protein (6.4-8.2) g/dL Albumin (3.4-5.0) g/dL Globulin Albumin/Globulin Ratio 07/19/20 07/19/20 07/19/20 Range/Units 06:10 06:10 06:10 WBC 7.8 (5.0-10.0) 10^3/uL RBC 4.48 L (4.6-6.2) 10^6/uL Hgb 13.6 L D (14.0-18.0) g/dL Hct 39.1 L (40.0-54.0) % MCV 87.3 (80-100) fL MCH 30.4 (27.0-34.0) pg MCHC 34.8 (33.0-35.0) g/dL Plt Count 198 (150-450) 10^3/uL VBG pH (7.31-7.41) VBG pCO2 (41-51) mmHg VBG pO2 (35-42) mmHg VBG HCO3 (19-25) mmol/l VBG O2 Saturation (60-80) % VBG Base Excess ((-2)-(+3)) mmol/l O2 Delivery Device Sodium 137 (136-145) mmol/L Potassium 3.9 (3.5-5.1) mmol/L Chloride 100 (98-107) mmol/L Carbon Dioxide 25 (21-32) mmol/L Anion Gap 15.9 H (7-13) mEq/L BUN 13 (7-18) mg/dL Creatinine 0.72 (0.70-1.30) mg/dL Est Cr Clr Drug Dosing 134.79 mL/min Estimated GFR (MDRD) > 60 Glucose 219 H (74-99) mg/dL POC Glucose (70-105) mg/dl Calcium 7.8 L (8.5-10.1) mg/dL Magnesium (1.8-2.4) mg/dL Total Bilirubin 0.7 (0.2-1.0) mg/dL Direct Bilirubin 0.2 (0.0-0.2) mg/dL Indirect Bilirubin 0.5 AST 15 (15-37) U/L ALT 22 (16-63) U/L Alkaline Phosphatase 109 (46-116) U/L Total Protein 5.1 L (6.4-8.2) g/dL Albumin 2.7 L (3.4-5.0) g/dL Globulin 2.4 Albumin/Globulin Ratio 1.13 07/19/20 Range/Units 07:56 WBC (5.0-10.0) 10^3/uL RBC (4.6-6.2) 10^6/uL Hgb (14.0-18.0) g/dL Hct (40.0-54.0) % MCV (80-100) fL MCH (27.0-34.0) pg MCHC (33.0-35.0) g/dL Plt Count (150-450) 10^3/uL VBG pH (7.31-7.41) VBG pCO2 (41-51) mmHg VBG pO2 (35-42) mmHg VBG HCO3 (19-25) mmol/l VBG O2 Saturation (60-80) % VBG Base Excess ((-2)-(+3)) mmol/l O2 Delivery Device Sodium (136-145) mmol/L Potassium (3.5-5.1) mmol/L Chloride (98-107) mmol/L Carbon Dioxide (21-32) mmol/L Anion Gap (7-13) mEq/L BUN (7-18) mg/dL Creatinine (0.70-1.30) mg/dL Est Cr Clr Drug Dosing mL/min Estimated GFR (MDRD) Glucose (74-99) mg/dL POC Glucose 179 H (70-105) mg/dl Calcium (8.5-10.1) mg/dL Magnesium (1.8-2.4) mg/dL Total Bilirubin (0.2-1.0) mg/dL Direct Bilirubin (0.0-0.2) mg/dL Indirect Bilirubin AST (15-37) U/L ALT (16-63) U/L Alkaline Phosphatase (46-116) U/L Total Protein (6.4-8.2) g/dL Albumin (3.4-5.0) g/dL Globulin Albumin/Globulin Ratio LAI Results - Last 24 hrs: Microbiology 07/18/20 06:24 Aerobic Blood Culture - Preliminary Blood - Arm, Left NO GROWTH AFTER 1 DAY Anaerobic Blood Culture - Preliminary NO GROWTH AFTER 1 DAY 07/18/20 05:45 Aerobic Blood Culture - Preliminary Blood - Venous - Iv Start NO GROWTH AFTER 1 DAY Anaerobic Blood Culture - Preliminary NO GROWTH AFTER 1 DAY Med Orders - Current: Current Medications Acetaminophen (Tylenol) 650 mg PO Q6H PRN PRN Reason: Pain (Mild 1-3)/fever Dextrose/Water (Dextrose 50% In Water) 50 ml IV ASDIRECTED PRN PRN Reason: Hypoglycemia Dextrose/Water (Dextrose 50% In Water) 50 ml IV ASDIRECTED PRN PRN Reason: Hypoglycemia Glucagon (Glucagen) 1 mg IM ASDIRECTED PRN PRN Reason: Hypoglycemia Glucagon (Glucagen) 1 mg IM ASDIRECTED PRN PRN Reason: Hypoglycemia Heparin Sodium (Porcine) (Heparin Sodium) 5,000 units SUBCUT Q12HR [facility] Last Admin: 07/19/20 09:35 Dose: 5,000 units Documented by: Potassium Chloride/Sodium Chloride (Normal Saline With 20 Meq Kcl) 1,000 mls @ 100 mls/hr IV ASDIRECTED [facility] Last Admin: 07/19/20 06:55 Dose: 100 mls/hr Documented by: Insulin Human Lispro (Humalog) 0 unit SUBCUT WITHMEALSANDBED [facility]; Protocol Last Admin: 07/19/20 09:38 Dose: 2 units Documented by: Lamotrigine (Lamotrigine) 200 mg PO BID [facility] Last Admin: 07/19/20 11:18 Dose: 200 mg Documented by: Magnesium Hydroxide (Milk Of Magnesia) 30 ml PO Q12H PRN PRN Reason: Constipation Ondansetron HCl (Zofran) 4 mg IVPUSH Q6H PRN PRN Reason: Nausea/Vomiting Discontinued Medications Sodium Chloride (Normal Saline) 1,000 mls @ 999 mls/hr IV .BOLUS ONE Stop: 07/18/20 06:55 Last Admin: 07/18/20 05:59 Dose: 999 mls/hr Documented by: Sodium Chloride (Normal Saline) 1,000 mls @ 500 mls/hr IV ASDIRECTED [facility] Last Infusion: 07/18/20 08:09 Dose: 999 mls/hr Documented by: Sodium Chloride (Normal Saline) 1,000 mls @ 250 mls/hr IV ASDIRECTED [facility] Last Infusion: 07/18/20 09:23 Dose: 250 mls/hr Documented by: Insulin Regular in 0.9 % NACL (Myxredlin In Ns 100 Unit/100 Ml) 100 unit in 100 mls @ 6.432 mls/hr IV TITRATE [facility]; Protocol Last Titration: 07/18/20 17:37 Dose: 0 units/kg/hr, 0 mls/hr Documented by: Dextrose/Sodium Chloride (Dextrose 5%-Normal Saline) 1,000 mls @ 150 mls/hr IV ASDIRECTED [facility] Last Infusion: 07/18/20 18:30 Dose: Infused Documented by: Sodium Bicarbonate 100 meq/ (Dextrose/Water) 1,100 mls @ 100 mls/hr IV ONETIME ONE Stop: 07/18/20 21:59 Last Admin: 07/18/20 13:24 Dose: 100 mls/hr Documented by: Magnesium Sulfate (Magnesium Sulfate In Water 2 Gm/50 Ml) 2 gm in 50 mls @ 25 mls/hr IV ONETIME ONE Stop: 07/18/20 13:14 Last Admin: 07/18/20 11:31 Dose: 25 mls/hr Documented by: Sodium Chloride (Normal Saline) 1,000 mls @ 125 mls/hr IV ASDIRECTED [facility] Last Admin: 07/18/20 18:30 Dose: 125 mls/hr Documented by: Insulin Glargine (Lantus) 20 unit SUBCUT ONETIME ONE Stop: 07/18/20 17:37 Last Admin: 07/18/20 17:49 Dose: 20 units Documented by: Insulin Human Regular (Humulin R) 10 unit IV ONETIME ONE Stop: 07/18/20 05:56 Last Admin: 07/18/20 06:03 Dose: 10 units Documented by: Ondansetron HCl (Zofran) 4 mg IV ONETIME ONE Stop: 07/18/20 05:56 Last Admin: 07/18/20 05:59 Dose: 4 mg Documented by: - Exam General: Reports: Alert, Oriented HEENT: Reports: Pupils Equal, Pupils Reactive, EOMI, Mucous Membr. Moist/[place] Neck: Reports: Supple Lungs: Reports: Clear to Auscultation, Normal Respiratory Effort Cardiovascular: Reports: Regular Rate, Regular Rhythm GI/Abdominal Exam: Normal Bowel Sounds, Soft, Non-Tender, No Organomegaly, No Distention, No Abnormal Bruit, No Mass, Pelvis Stable (Male) Exam: No Hernia, Normal Inspection, Normal Prostate, Circumcised Rectal (Males) Exam: Normal Exam, Normal Rectal Tone, Prostate Normal Back Exam: Reports: Normal Inspection, Full Range of Motion Extremities: Normal Inspection, Normal Range of Motion, Non-Tender, No Pedal Edema, Normal Capillary Refill Skin: Reports: Warm, Dry, Intact Wound/Incisions: Reports: Healing Well Neurological: Reports: No New Focal Deficit Psy/Mental Status: Reports: Alert, Normal Affect, Normal Mood
== END 2020-07-19 14:30 | disposition home or self-care (01) | DRG 420 ==
LOC: DL.ED 05:27 → DL.MS 06:42
PROVIDERS: ADMIT Student in an Organized Health Care Education/Training Program; ATTEND Student in an Organized Health Care Education/Training Program
DX: E10.10 Type 1 diabetes mellitus with ketoacidosis without coma (principal); Z79.4 Long term (current) use of insulin; E87.1 Hypo-osmolality and hyponatremia; R74.8 Abnormal levels of other serum enzymes; R65.10 Systemic inflammatory response syndrome (SIRS) of non-infectious origin without acute organ dysfunction; N17.9 Acute kidney failure, unspecified; E83.42 Hypomagnesemia; Z20.822 Contact with and (suspected) exposure to COVID-19
CPT/HCPCS: 0240U; 36415; 36600; 71045; 80048; 80053; 80076; 80305-QW; 80307; 81001; 82009; 82803; 82962; 83605; 83735; 84100; 85025; 85027; 87040; 99284; A9270-GY; J1644; J1815-GY; J2405; J3475; J3480; J7030; J7042; J7060

== ENCOUNTER 2020-11-16 17:33 | Emergency (ER) | payer BC ==
[2020-11-16 17:54] VITALS: BP 140/82; PULSE 104
[2020-11-16] MEDS ORDERED: Sodium Chloride 0.9% 10 ML Syringe FLUSH PRN (17:55)
--- NOTE | 2020-11-16 17:55 | EDM.PDOC ---
<RobbiedeweyAlexia dickson Nick - Last Filed: 11/17/20 03:44> ED HPI GENERAL MEDICAL PROBLEM - General Chief Complaint: Headache Stated Complaint: DIZZINESS / HEADACHE / WEAKNESS Time Seen by Provider: 11/16/20 17:55 - Related Data Allergies Allergy/AdvReac Type Severity Reaction Status Date / Time No Known Allergies Allergy Verified 11/16/20 17:44 Home Meds: Home Meds Insulin Aspart [Novolog] 0 units SUBCUT ASDIRECTED 10/18/13 [History] Insulin Glarg,Human.Rec.Analog [Lantus Solostar] 33 unit SUBCUT BEDTIME 10/18/13 [History] lamoTRIgine 200 mg PO BID 09/20/18 [History] Departure - Departure Time of Disposition: 19:44 Disposition: Home, Self-Care 01 Condition: Good Clinical Impression: Hypoglycemia Diabetes mellitus type 1 Qualifiers: Diabetes mellitus complication status: without complication Qualified Code(s): E10.9 - Type 1 diabetes mellitus without complications - Discharge Information *PRESCRIPTION DRUG MONITORING PROGRAM REVIEWED*: No *COPY OF PRESCRIPTION DRUG MONITORING REPORT IN PATIENT CHERRI: No Instructions: Diabetes Mellitus and Sick Day Management Forms: ED Department Discharge Additional Instructions: avoid heat increase fluids balanced meals monitor blood sugars more frequently whne not feeling well follow up clinic recheck tomorrow <Cristian Royal - Last Filed: 11/17/20 07:40> ED HPI GENERAL MEDICAL PROBLEM - General Source of Information: Reports: Patient History Limitations: Reports: No Limitations - History of Present Illness INITIAL COMMENTS - FREE TEXT/NARRATIVE: Patient comes emergency department today from home with concerns of headache malaise and lightheadedness. Patient is a type I diabetic who relates that he manages his blood sugars as well as he can. Over the past couple of days his blood sugars have been anywhere from 1 20-300. Last 2 days he is really not felt well with just some generalized malaise fatigue. Does not have much energy. He feels lightheaded. There is no vertigo. He has no headache or visual acuity changes. Today he checked his blood sugar it was low at 48. He did eat something prior to arrival and got it up to 80. He has had multiple bouts of DKA in the past he has had no vomiting or nausea. No abdominal pain. He denies any polyuria or polydipsia. No urinary frequency dysuria hematuria. No diarrhea abdominal pain black or tarry stools. No fever no chills. He just does not have much energy with his headache and his overall malaise. Past Medical History HEENT History: Reports: Impaired Vision, Other (See Below) Other HEENT History: wears glasses Cardiovascular History: Reports: None Respiratory History: Reports: None Gastrointestinal History: Reports: None Genitourinary History: Reports: Acute Renal Failure Musculoskeletal History: Reports: None Neurological History: Reports: Seizure Psychiatric History: Reports: None Endocrine/Metabolic History: Reports: Diabetes, Type I Other Endocrine/Metabolic History: on insulin at home Hematologic History: Reports: None Immunologic History: Reports: None Oncologic (Cancer) History: Reports: None Dermatologic History: Reports: None - Infectious Disease History Infectious Disease History: Reports: None - Past Surgical History Head Surgeries/Procedures: Reports: None Social & Family History - Family History Family Medical History: No Pertinent Family History Endocrine/Metabolic: Reports: IDDM - Caffeine Use Caffeine Use: Reports: Soda - Living Situation & Occupation Living situation: Reports: Single, with Family Occupation: Employed ED ROS GENERAL - Review of Systems Review Of Systems: Comprehensive ROS is negative, except as noted in HPI. ED EXAM, GENERAL - Physical Exam Exam: See Below Exam Limited By: No Limitations General Appearance: Alert, WD/WN, No Apparent Distress Eye Exam: Bilateral Eye: EOMI Ears: Normal External Exam Nose: Normal Inspection, Normal Mucosa Throat/Mouth: Normal Inspection, Normal Lips, Normal Teeth, Normal Oropharynx, Normal Voice, No Airway Compromise Head: Atraumatic, Normocephalic Neck: Normal Inspection, Supple, Non-Tender, Full Range of Motion Respiratory/Chest: No Respiratory Distress, Lungs Clear, Normal Breath Sounds, No Accessory Muscle Use, Chest Non-Tender Cardiovascular: Normal Peripheral Pulses, Regular Rate, Rhythm, Tachycardia Peripheral Pulses: 2+: Radial (L), Radial (R), Posterior Tibial (L), Posterior Tibial (R), Dorsalis Pedis (L), Dorsalis Pedis (R) GI/Abdominal: Normal Bowel Sounds, Soft, Non-Tender, No Distention (Male) Exam: Deferred Rectal (Males) Exam: Deferred Back Exam: Normal Inspection, Full Range of Motion Extremities: Normal Inspection, Normal Range of Motion, No Pedal Edema, Normal Capillary Refill Neurological: Alert, Oriented, Normal Cognition, No Motor/Sensory Deficits Psychiatric: Normal Affect, Normal Mood Skin Exam: Intact, Cool, Diaphoretic, Pallor Course - Vital Signs Last Recorded V/S: Last Vital Signs Temp 99.2 F 11/16/20 17:52 Pulse 104 H 11/16/20 17:52 Resp 18 11/16/20 17:52 BP 140/82 11/16/20 17:52 Pulse Ox 100 11/16/20 17:52 - Orders/Labs/Meds Orders: Active Orders 24 hr Category Date Time Status Peripheral IV Insertion Adult [OM.PC] Stat Oth 11/16/20 17:55 Ordered Labs: Laboratory Tests 11/16/20 11/16/20 11/16/20 Range/Units 17:42 18:15 18:15 WBC 6.1 (5.0-10.0) 10^3/uL RBC 5.14 (4.6-6.2) 10^6/uL Hgb 15.2 D (14.0-18.0) g/dL Hct 45.5 (40.0-54.0) % MCV 88.5 (80-100) fL MCH 29.6 (27.0-34.0) pg MCHC 33.4 (33.0-35.0) g/dL Plt Count 247 (150-450) 10^3/uL Neut % (Auto) 56.8 (42.2-75.2) % Lymph % (Auto) 30.4 (20.5-50.1) % [place] % (Auto) 10.8 H (2-8) % Eos % (Auto) 1.5 (1.0-3.0) % Baso % (Auto) 0.5 (0.0-1.0) % Sodium 142 (136-145) mmol/L Potassium 3.5 (3.5-5.1) mmol/L Chloride 105 (98-107) mmol/L Carbon Dioxide 30 (21-32) mmol/L Anion Gap 10.5 (7-13) mEq/L BUN 11 (7-18) mg/dL Creatinine 1.00 (0.70-1.30) mg/dL Est Cr Clr Drug Dosing TNP Estimated GFR (MDRD) > 60 BUN/Creatinine Ratio 11.0 (No establ ref range) Glucose 104 H (70-99) mg/dL POC Glucose 84 (70-99) mg/dL Calcium 8.5 (8.5-10.1) mg/dL Total Bilirubin 0.4 (0.2-1.0) mg/dL AST 25 (15-37) U/L ALT 39 (16-63) U/L Alkaline Phosphatase 126 H (46-116) U/L Total Protein 6.8 (6.4-8.2) g/dL Albumin 3.7 (3.4-5.0) g/dL Globulin 3.1 Albumin/Globulin Ratio 1.2 Urine Color (YELLOW) Urine Appearance (CLEAR) Urine pH (5.0-9.0) Ur Specific [place] (1.005-1.030) Urine Protein (NEGATIVE) Urine Glucose (UA) (NEGATIVE) Urine Ketones (NEGATIVE) Urine Occult Blood (NEGATIVE) Urine Nitrite (NEGATIVE) Urine Bilirubin (NEGATIVE) Urine Urobilinogen (0.2-1.0) mg/dL Ur Leukocyte Esterase (NEGATIVE) Urine Opiates Screen (NEGATIVE) Ur Oxycodone Screen (NEGATIVE) Urine Methadone Screen (NEGATIVE) Ur Barbiturates Screen (NEGATIVE) U Tricyclic Antidepress (NEGATIVE) Ur Phencyclidine Scrn (NEGATIVE) Ur Amphetamine Screen (NEGATIVE) U Methamphetamines Scrn (NEGATIVE) Urine MDMA Screen (NEGATIVE) U Benzodiazepines Scrn (NEGATIVE) Urine Cocaine Screen (NEGATIVE) U Marijuana (THC) Screen (NEGATIVE) Ethyl Alcohol < 3 (0) mg/dL Ketones Negative 11/16/20 11/16/20 11/16/20 Range/Units 19:15 19:15 19:30 WBC (5.0-10.0) 10^3/uL RBC (4.6-6.2) 10^6/uL Hgb (14.0-18.0) g/dL Hct (40.0-54.0) % MCV (80-100) fL MCH (27.0-34.0) pg MCHC (33.0-35.0) g/dL Plt Count (150-450) 10^3/uL Neut % (Auto) (42.2-75.2) % Lymph % (Auto) (20.5-50.1) % [place] % (Auto) (2-8) % Eos % (Auto) (1.0-3.0) % Baso % (Auto) (0.0-1.0) % Sodium (136-145) mmol/L Potassium (3.5-5.1) mmol/L Chloride (98-107) mmol/L Carbon Dioxide (21-32) mmol/L Anion Gap (7-13) mEq/L BUN (7-18) mg/dL Creatinine (0.70-1.30) mg/dL Est Cr Clr Drug Dosing Estimated GFR (MDRD) BUN/Creatinine Ratio (No establ ref range) Glucose (70-99) mg/dL POC Glucose 84 (70-99) mg/dL Calcium (8.5-10.1) mg/dL Total Bilirubin (0.2-1.0) mg/dL AST (15-37) U/L ALT (16-63) U/L Alkaline Phosphatase (46-116) U/L Total Protein (6.4-8.2) g/dL Albumin (3.4-5.0) g/dL Globulin Albumin/Globulin Ratio Urine Color Yellow (YELLOW) Urine Appearance Clear (CLEAR) Urine pH 6.5 (5.0-9.0) Ur Specific [place] 1.025 (1.005-1.030) Urine Protein Negative (NEGATIVE) Urine Glucose (UA) 500 H (NEGATIVE) Urine Ketones Negative (NEGATIVE) Urine Occult Blood Negative (NEGATIVE) Urine Nitrite Negative (NEGATIVE) Urine Bilirubin Negative (NEGATIVE) Urine Urobilinogen 0.2 (0.2-1.0) mg/dL Ur Leukocyte Esterase Negative (NEGATIVE) Urine Opiates Screen Negative (NEGATIVE) Ur Oxycodone Screen Negative (NEGATIVE) Urine Methadone Screen Negative (NEGATIVE) Ur Barbiturates Screen Negative (NEGATIVE) U Tricyclic Antidepress Negative (NEGATIVE) Ur Phencyclidine Scrn Negative (NEGATIVE) Ur Amphetamine Screen Negative (NEGATIVE) U Methamphetamines Scrn Negative (NEGATIVE) Urine MDMA Screen Negative (NEGATIVE) U Benzodiazepines Scrn Negative (NEGATIVE) Urine Cocaine Screen Negative (NEGATIVE) U Marijuana (THC) Screen Negative (NEGATIVE) Ethyl Alcohol (0) mg/dL Ketones Meds: Medications Discontinued Medications Generic Name Dose Route Start Last Admin Trade Name Freq PRN Reason Stop Dose Admin Sodium Chloride 1,000 mls @ 999 mls/hr 11/16/20 18:00 11/16/20 18:23 Normal Saline IV 11/16/20 19:00 999 mls/hr .BOLUS ONE Administration Sodium Chloride 10 ml 11/16/20 17:55 Sodium Chloride 0.9% 10 Ml Syringe FLUSH ASDIRECTED PRN Keep Vein Open - Re-Assessments/Exams Free Text/Narrative Re-Assessment/Exam: 11/16/20 18:56 IV established labs drawn. IV NS 1 liter wide open. Accucheck 84 Report to Alexia Dickson PA-C at shift change. Sepsis Event Note (ED) - Evaluation Sepsis Screening Result: No Definite Risk - My Orders Last 24 Hours: My Active Orders 11/16/20 17:55 Peripheral IV Insertion Adult [OM.PC] Stat - Assessment/Plan Last 24 Hours: My Active Orders 11/16/20 17:55 Peripheral IV Insertion Adult [OM.PC] Stat
[2020-11-16] MEDS ORDERED: Sodium Chloride 0.9% 1,000 ML IV ONE (18:00)
[2020-11-16 18:40] LABS: ANION GAP 10.5 mEq/L (7-13); CHLORIDE,CL 105 mmol/L (98-107); SODIUM,NA 142 mmol/L (136-145)
== END 2020-11-16 19:54 | disposition home or self-care (01) ==
LOC: DL.ED 17:33
DX: E10.649 Type 1 diabetes mellitus with hypoglycemia without coma (principal)
CPT/HCPCS: 36415; 80053; 80305; 80307; 81003; 82009; 82947; 85025; 99283; 99284; J7030

== ENCOUNTER 2021-10-23 10:04 | Emergency (ER) | payer BC ==
[2021-10-23] MEDS ORDERED: Ondansetron 4 MG Tab.DIS PO ONE (10:05)
[2021-10-23 10:12] VITALS: BP 154/98; PULSE 107
[2021-10-23] MEDS ORDERED: Ondansetron 4 MG/2 ML SDV IVPUSH ONE (10:30)
[2021-10-23] MEDS ORDERED: Sodium Chloride 0.9% 1,000 ML IV ONE (10:30)
[2021-10-23 10:51] LABS: CHLORIDE,CL 103 mmol/L (98-107); SODIUM,NA 142 mmol/L (136-145)
[2021-10-23 11:04] LABS: CORONAVIRUS COVID-19 NAA NEGATIVE (NEGATIVE)
[2021-10-23] MEDS ORDERED: Ondansetron 4 MG Tab.DIS ONE ×2 (11:42→11:45)
== END 2021-10-23 11:50 | disposition home or self-care (01) ==
LOC: DL.ED 10:04
DX: K52.9 Noninfective gastroenteritis and colitis, unspecified (principal); E10.9 Type 1 diabetes mellitus without complications; Z20.822 Contact with and (suspected) exposure to COVID-19
CPT/HCPCS: 0240U; 36415; 80053; 82009; 82150; 83605; 83690; 85025; 96361; 96374; 99284; A9270; J2405; J7030

== ENCOUNTER 2021-12-30 04:11 | Emergency (ER) | payer BC ==
[2021-12-30] MEDS ORDERED: Amoxicillin 500 MG Cap PO ONE (04:35)
[2021-12-30] MEDS ORDERED: guaiFENesin 100 MG/5 ML Soln 5 ML UD Cup PO ONE (04:35)
[2021-12-30 05:59] VITALS: BP 124/87; PULSE 115
== END 2021-12-30 05:57 | disposition home or self-care (01) ==
LOC: DL.ED 04:11
DX: J06.9 Acute upper respiratory infection, unspecified (principal); H65.01 Acute serous otitis media, right ear; E10.9 Type 1 diabetes mellitus without complications; Z20.822 Contact with and (suspected) exposure to COVID-19
CPT/HCPCS: 87635; 99283; 99284; A9270; U0002

== ENCOUNTER 2023-03-27 13:01 | Emergency (ER) | payer BC ==
[2023-03-27] MEDS ORDERED: Sodium Chloride 0.9% 10 ML Syringe FLUSH PRN (13:27)
[2023-03-27] MEDS ORDERED: Sodium Chloride 0.9% 1,000 ML IV ONE ×2 (13:29→13:30)
[2023-03-27] MEDS ORDERED: Ondansetron 4 MG/2 ML SDV IV ONE (13:29)
[2023-03-27] MEDS ORDERED: Acetaminophen 500 MG Tab PO ONE (13:29)
[2023-03-27] MEDS ORDERED: Glucagon,Human Recombinant 1 MG Vial IM PRN (13:36)
[2023-03-27] MEDS ORDERED: 50% Dextrose in Water 50 ML Syringe IVPUSH PRN (13:36)
[2023-03-27 13:38] LABS: BASOPHILS PERCENT AUTO 0.1 % (0.0-1.0); HEMATOCRIT 45.7 % (40.0-54.0); HEMOGLOBIN 15.6 g/dL (14.0-18.0); LYMPHOCYTES PERCENT AUTO 8.4 % (20.5-50.1); MEAN CORPUSCULAR HEMOGLOBIN 29.9 pg (27.0-34.0); MEAN CORPUSCULAR HGB CONC 34.1 g/dL (33.0-35.0); MEAN CORPUSCULAR VOLUME 87.7 fL (80-100); MONOCYTES PERCENT AUTO 12.6 % (2-8); NEUTROPHILS PERCENT AUTO 78.9 % (42.2-75.2); PLATELET COUNT,PLT 162 10^3/uL (150-450); RED BLOOD CELL COUNT 5.21 10^6/uL (4.6-6.2); WHITE BLOOD CELL COUNT,WBC 7.5 10^3/uL (5.0-10.0)
[2023-03-27 13:39] LABS: AMPHETAMINES,URINE NEGATIVE (NEGATIVE); APPEARANCE,URINE CLEAR (CLEAR); BARBITURATES,URINE NEGATIVE (NEGATIVE); BENZODIAZEPINE,URINE NEGATIVE (NEGATIVE); BILIRUBIN,URINE NEGATIVE (NEGATIVE); COLOR,URINE YELLOW (YELLOW); GLUCOSE,URINE 500 (NEGATIVE); KETONES,URINE >=160 (NEGATIVE); LEUKOCYTE ESTERASE,URINE NEGATIVE (NEGATIVE); MDMA (ECSTASY), URINE NEGATIVE (NEGATIVE); METHADONE,URINE NEGATIVE (NEGATIVE); METHAMPHETAMINES,URINE NEGATIVE (NEGATIVE); NITRITE,URINE NEGATIVE (NEGATIVE); OCCULT BLOOD,URINE TRACE-INTACT (NEGATIVE); OPIATES,URINE NEGATIVE (NEGATIVE); OXYCODONE,URINE NEGATIVE (NEGATIVE); PHENCYCLIDINE,URINE NEGATIVE (NEGATIVE); PROTEIN,URINE 30 (NEGATIVE); TCA,URINE NEGATIVE (NEGATIVE); UROBILINOGEN,URINE 0.2 mg/dL (0.2-1.0)
[2023-03-27 13:48] LABS: O2 DELIVERY DEVICE ROOM AIR
[2023-03-27 13:53] LABS: BASE EXCESS VENOUS -2.9 mmol/l ((-2)-(+3)); BICARBONATE,VENOUS 21 mmol/l (19-25); O2 SATURATION VENOUS 67.2 % (60-80); PCO2 VENOUS 36 mmHg (41-51); PH,VENOUS 7.38 (7.31-7.41); PO2 VENOUS 42 mmHg (35-42)
[2023-03-27 13:57] LABS: A/G RATIO 1.2; ALANINE AMINOTRANSFERASE,ALT 45 U/L (16-63); ALBUMIN 3.8 g/dL (3.4-5.0); ALKALINE PHOSPHATASE 126 U/L (46-116); ANION GAP 17.6 mEq/L (7-13); ASPARTATE AMNIOTRANSFERASE,AST 44 U/L (15-37); BILIRUBIN TOTAL 0.7 mg/dL (0.2-1.0); BLOOD UREA NITROGEN,BUN 14 mg/dL (7-18); CALCIUM 8.3 mg/dL (8.5-10.1); CARBON DIOXIDE,CO2 22 mmol/L (21-32); CHLORIDE,CL 90 mmol/L (98-107); CREATININE 1.17 mg/dL (0.70-1.30); GLUCOSE RANDOM 385 mg/dL (70-99); MAGNESIUM 1.4 mg/dL (1.8-2.4); POTASSIUM,K 3.6 mmol/L (3.5-5.1); PROTEIN TOTAL,TP 7.1 g/dL (6.4-8.2); SODIUM,NA 126 mmol/L (136-145)
[2023-03-27 13:58] LABS: ESTIMATED GFR 88 mL/min (>=60)
[2023-03-27 14:04] LABS: BACTERIA,URINE NOT SEEN /HPF (0-FEW/HPF); EPITHELIAL CELLS,URINE NOT SEEN /HPF (NOT SEEN); RBC,URINE 0-5 /HPF (0-5); WBC,URINE NOT SEEN /HPF (0-5/HPF)
[2023-03-27 14:06] LABS: KETONES,BLOOD SMALL-20 mg/dL
[2023-03-27 14:25] LABS: INFLUENZA A NAA NEGATIVE (NEGATIVE); INFLUENZA B NAA NEGATIVE (NEGATIVE); RESPIRATORY SYNCYTIAL VIR NAA NEGATIVE (NEGATIVE)
[2023-03-27 14:29] LABS: CORONAVIRUS COVID-19 NAA POSITIVE (NEGATIVE)
[2023-03-27 15:16] VITALS: BP 103/68; PULSE 123
[2023-03-27] MEDS ORDERED: Magnesium Sulfate/Water 2 GM in Premix Bag 1 BAG IV ONE (15:28)
[2023-03-27] MEDS ORDERED: NS with KCl 40mEq 1,000 ML IV SCH (15:30)
== END 2023-03-27 16:10 ==
LOC: DL.ED 13:01
DX: U07.1 COVID-19 (principal); E86.0 Dehydration; E83.42 Hypomagnesemia; E10.10 Type 1 diabetes mellitus with ketoacidosis without coma; Z20.822 Contact with and (suspected) exposure to COVID-19; Z79.4 Long term (current) use of insulin
CPT/HCPCS: 0241U; 36415; 71045; 80053; 80305-QW; 81001; 82009; 82803; 82947; 83605; 83735; 84145; 84484; 85025; 87040; 93005; 93010; 96361; 96365; 96368; 96375; 99285; 99285-25; A9270-GY; J1815-GY; J2405; J3475; J3480; J7030

== ENCOUNTER 2025-01-15 12:24 | Emergency (ER) | payer BC ==
[2025-01-15 12:30] VITALS: BP 136/83; PULSE 123
[2025-01-15 12:57] LABS: BASOPHILS PERCENT AUTO 0.5 % (0.0-1.0); EOSINOPHILS PERCENT AUTO 0.5 % (1.0-3.0); LYMPHOCYTES PERCENT AUTO 17.4 % (20.5-50.1); MONOCYTES PERCENT AUTO 17.4 % (2-8); NEUTROPHILS PERCENT AUTO 64.2 % (42.2-75.2); PLATELET COUNT,PLT 221 10^3/uL (150-450); RED BLOOD CELL COUNT 5.06 10^6/uL (4.6-6.2); WHITE BLOOD CELL COUNT,WBC 5.9 10^3/uL (5.0-10.0)
[2025-01-15 13:16] LABS: A/G RATIO 1.3; ALANINE AMINOTRANSFERASE,ALT 34.0 U/L (16-63); ASPARTATE AMNIOTRANSFERASE,AST 27.0 U/L (15-37); BILIRUBIN TOTAL 0.8 mg/dL (0.2-1.0); BLOOD UREA NITROGEN,BUN 9.0 mg/dL (7-18); CARBON DIOXIDE,CO2 32.0 mmol/L (21-32); CHLORIDE,CL 100.0 mmol/L (98-107); CREATININE 0.89 mg/dL (0.70-1.30); EST CRCL DRUG DOSING (CG) 111.31 mL/min; ESTIMATED GFR 120.0 mL/min (>=60); GLUCOSE RANDOM 262.0 mg/dL (70-99); POTASSIUM,K 3.6 mmol/L (3.5-5.1); PROTEIN TOTAL,TP 7.0 g/dL (6.4-8.2); SODIUM,NA 139.0 mmol/L (136-145)
== END 2025-01-15 13:39 | disposition home or self-care (01) ==
LOC: DL.ED 12:24
DX: E10.65 Type 1 diabetes mellitus with hyperglycemia (principal); H66.002 Acute suppurative otitis media without spontaneous rupture of ear drum, left ear; Z79.4 Long term (current) use of insulin; Z79.899 Other long term (current) drug therapy
CPT/HCPCS: 36415; 71045; 80053; 82947; 83036; 85025; 87081; 87430; 99283; 99285

== ENCOUNTER 2025-01-16 10:18 | Emergency (ER) | payer BC ==
[2025-01-16 10:38] VITALS: PULSE 84
== END 2025-01-16 11:07 | disposition home or self-care (01) ==
LOC: DL.ED 10:18
DX: J02.9 Acute pharyngitis, unspecified (principal); E10.9 Type 1 diabetes mellitus without complications; Z79.4 Long term (current) use of insulin; Z79.899 Other long term (current) drug therapy; Z20.822 Contact with and (suspected) exposure to COVID-19
CPT/HCPCS: 87428-QW; 99283